=== PATIENT | male | born 1945 | race Caucasian/White ===

== ENCOUNTER → 2018-08-15 | Outpatient (REF) | payer MEDICARE, OTHER ==
[2018-08-15 14:19] LABS: HEMATOCRIT 42.2 % (42.0-52.0); HEMOGLOBIN 14.4 g/dl (13.5-17.5); MEAN CORPUSCULAR HEMOGLOBIN 34.2 pg (27.0-33.0); MEAN CORPUSCULAR HGB CONC 34.1 g/dl (32.0-36.5); MEAN CORPUSCULAR VOLUME 100.2 fl (80.0-96.0); PLATELET COUNT, AUTOMATED 437 10^3/uL (150-450); RED BLOOD COUNT 4.21 10^6/uL (4.30-6.10); RED CELL DISTRIBUTION WIDTH 12.9 % (11.5-14.5)
[2018-08-15 14:27] LABS: DRVV SCREEN 31.8 SEC
[2018-08-15 14:29] LABS: POSITIVE DIFF POS FLAG; PTT LUPUS TYPE ANTICOAG SCREEN 0.8 (0-1.2); WHITE BLOOD COUNT 22.6 10^3/uL (4.0-10.0)
[2018-08-15 14:30] LABS: ADD MANUAL DIFFER YES; DIFF SLIDE NUMBER 192; POSITIVE MORPH POS FLAG
[2018-08-15 14:34] LABS: ALBUMIN 3.9 GM/DL (3.2-5.2); ALKALINE PHOSPHATASE 109 U/L (45-117); ALT/SGPT 34 U/L (12-78); ANION GAP 9 MEQ/L (8-16); AST/SGOT 11 U/L (7-37); BILIRUBIN,TOTAL 0.5 MG/DL (0.2-1.0); BLOOD UREA NITROGEN 19 MG/DL (7-18); CALCIUM LEVEL 8.8 MG/DL (8.8-10.2); CARBON DIOXIDE LEVEL 25 MEQ/L (21-32); CHLORIDE LEVEL 99 MEQ/L (98-107); CREATININE FOR GFR 0.93 MG/DL (0.70-1.30); FOLATE 18.3 NG/ML; GLOMERULAR FILTRATION RATE > 60.0 (>42); GLUCOSE, FASTING 329 MG/DL (70-100); POTASSIUM SERUM 4.5 MEQ/L (3.5-5.1); RHEUMATOID FACTOR QUANT < 10.0 IU/ML (<15.0); SODIUM LEVEL 133 MEQ/L (136-145); THYROID STIMULATING HORMONE 0.713 uIU/ML (0.358-3.740); TOTAL 25(OH) VITAMIN D 5.8 NG/ML (30.0-100.0); TOTAL PROTEIN 6.9 GM/DL (6.4-8.2); VITAMIN B12 LEVEL 926 PG/ML
[2018-08-15 14:43] LABS: ATYPICAL LYMPH 49 % (0-5); BASOPHILS 2 % (0-4); EOSINOPHILS 3 % (0-5); LYMPHOCYTES 28 % (16-52); MONOCYTES 5 % (0-8); NEUTROPHILS 13 % (35-75); PLATELET ESTIMATE INCREASED (NORMAL)
[2018-08-15 14:48] LABS: ERYTHROCYTE SEDIMENTATION RATE 30 mm/hr (0-20)
[2018-08-15 15:43] LABS: ESTIMATED AVERAGE GLUCOSE 309 MG/DL (60-110); HEMOGLOBIN A1c 12.4 %
[2018-08-17 11:34] LABS: ALBUMIN 4.04 GM/DL (3.29-5.55); ALBUMIN % 58.5 % (55.8-66.1); ALPHA-1-GLOBULIN % 3.8 % (2.9-4.9); ALPHA-1-GLOBULINS 0.26 GM/DL (0.17-0.41); ALPHA-2-GLOBULINS 0.92 GM/DL (0.42-0.99); ALPHA-2-GLOBULINS % 13.3 % (7.1-11.8); BETA-1-GLOBULINS 0.46 GM/DL (0.28-0.60); BETA-1-GLOBULINS % 6.7 % (4.7-7.2); BETA-2-GLOBULINS 0.33 GM/DL (0.19-0.55); BETA-2-GLOBULINS % 4.8 % (3.2-6.5); GAMMA GLOBULIN % 12.9 % (11.1-18.8); GAMMA GLOBULINS 0.89 GM/DL (0.65-1.58)
[2018-08-19 00:06] LABS: ANCA-ATYPICAL <1:20 titer (Neg:<1:20); ANTI DOUBLE STRAND-DNA AB <1 IU/mL (0-9); ANTINUCLEAR ANTIBODIES DIRECT Negative (Negative); CERULOPLASMIN 29.5 mg/dL (16.0-31.0); COPPER PLASMA 101 ug/dL (72-166); CYTOPLASMIC NEUTROP AB ANCA-C <1:20 titer (Neg:<1:20); LEAD BLOOD ADULT 2 ug/dL (0-4); Lyme Disease IgG/IgM Antibodie <0.91 ISR (0.00-0.90); Lyme Disease IgM Ab Quantitati <0.80 index (0.00-0.79); MERCURY LEVEL None Detected ug/L (0.0-14.9); PERINUCLEAR AB ANCA-P <1:20 titer (Neg:<1:20); SJOGREN'S ANTI SS-A <0.2 AI (0.0-0.9); SJOGREN'S ANTI SS-B <0.2 AI (0.0-0.9); VITAMIN B1 LEVEL WHOLE BLOOD 141.8 nmol/L (66.5-200.0); VITAMIN B6,PYRIDOXAL PHOSPHATE 5.9 ug/L (5.3-46.7); VITAMIN E(ALPHA TOCOPHEROL) 14.8 mg/L (9.0-29.0); VITAMIN E(GAMMA TOCOPHEROL) 1.8 mg/L (0.5-4.9)
== END ==
LOC: M LABNEURO 09:45
DX: G62.9 Polyneuropathy, unspecified (principal); E03.9 Hypothyroidism, unspecified; E11.9 Type 2 diabetes mellitus without complications
CPT/HCPCS: 82525

== ENCOUNTER 2019-02-07 14:04 | Inpatient (IN) | payer MEDICARE, OTHER ==
[~2019-02-07] VITALS: Ht 175.3 cm; Wt 70.3 kg
[2019-02-07 20:00] VITALS: BP 153/90
[2019-02-07] MEDS ORDERED: DEXTROSE 50% 50 ML SYRINGE IV PRN (20:30)
[2019-02-07] MEDS ORDERED: GLUCOSE 4 GM CHEW TABLET PO PRN (20:30)
[2019-02-07] MEDS ORDERED: MAALOX 30 ML SUSP *UDC PO PRN (20:30)
[2019-02-07] MEDS ORDERED: MOM 30ML SUSPENSION UDC PO PRN (20:30)
[2019-02-07] MEDS ORDERED: GLUCAGON FOR INJ 1 MG VIAL (J1610) SC PRN (20:30)
[2019-02-07] MEDS: HumaLOG INSULIN (NovoLOG) PER UNIT SC SCH (21:00)
[2019-02-07] MEDS ORDERED: GABA-843 PO (21:11)
[2019-02-07] MEDS ORDERED: GLYB5TA PO (21:11)
[2019-02-07] MEDS ORDERED: ATOR40TA75 PO (21:11)
[2019-02-07] MEDS ORDERED: INVO100T PO (21:11)
[2019-02-07] MEDS ORDERED: JANU100T PO (21:11)
[2019-02-07] MEDS: LR 1,000 ML IV SCH (21:43)
[2019-02-07] MEDS: HEPARIN SOD (PORCINE) 5000 UNITS/ML VIAL SC SCH (21:44)
[2019-02-07] MEDS: MORPHINE 4 MG/ML 1ML VIAL/SYRINGE (J2270) IV PRN (21:44)
--- NOTE | 2019-02-07 22:21 | HPEPDOC ---
General Date of Admission February 07, 2019 at 19:10 Primary Care Physician: TATYANA WRAY MD Attending Physician: FRANCISCO ROMANO MD Chief Complaint The patient is a 73-year-old male admitted with a reason for visit of Subcapital Right Hip Fracture. Source: Patient, Family Exam Limitations: No limitations History of Present Illness Mr. Felix is a 73 years old man who had a mechanical fall today and sustained right hip injury. Pt states that he was pushing shopping cart when he lost the balance and fell. He was at his usual state of health. He denies any chest pain, dizziness, lightheadedness, SOB, headache or LOC. Pt was evaluated at [facility], where x-ray confirmed right hip fracture. Other work ups including basic labs were unremarkable except for chronic leucocytosis from CLL. During my visit, pt only complained of right hip pain that is indued by movement. I spoke with Jens Friedman who will see the pt tomorrow. Home Medications Scheduled Atorvastatin Calcium (Atorvastatin Calcium) 40 Mg Tablet, 40 MG PO DAILY, (Reported) Canagliflozin (Invokana) 100 Mg Tablet, 100 MG PO QPM, (Reported) Gabapentin (Gabapentin) 300 Mg Capsule, 600 MG PO QHS, (Reported) Glyburide (Glyburide) 5 Mg Tablet, 10 MG PO BID, (Reported) Sitagliptin Phosphate (Januvia) 100 Mg Tablet, 100 MG PO DAILY, (Reported) Allergies Coded Allergies: No Known Allergies (Unverified , 02/07/19) Past Medical History Medical History CLL, HTN, HLD, BPH Surgical History Hernia repair Family History Significant Family History: No pertinent family hx Social History * Smoker: Denies Alcohol: occationally Drugs: denies A-FIB/CHADSVASC A-FIB History Current/History of A-Fib/PAF?: No Review of Systems Musculoskeletal: Reports: Leg Pain Physical Examination General Exam: Positive: Cooperative Eye Exam: Positive: PERRLA ENT Exam: Positive: Atraumatic Neck Exam: Positive: Supple Chest Exam: Positive: Clear to auscultation, Normal air movement Heart Exam: Positive: Rate Normal Abdomen Exam: Positive: Normal bowel sounds Vital Signs Vital Signs Date Time Temp Pulse Resp B/P (MAP) Pulse Ox O2 Delivery O2 Flow Rate FiO2 02/07/19 21:54 16 02/07/19 21:44 18 Laboratory Tests 02/07/19 21:47: Bedside Glucose (Misc Panel) 211H Current Medications Medications (Trade) Dose Ordered Sig/Pia Route PRN Reason Start Time Stop Time Status Last Admin Dose Admin Heparin Sodium (Porcine) (Heparin) 5,000 units Q12H SC 02/07/19 21:00 02/07/19 21:44 5,000 UNITS Lactated Ringer's 1,000 ml @ 75 mls/hr [id number] IV 02/07/19 20:45 02/07/19 21:43 75 MLS/HR Morphine Sulfate (Morphine Sulfate Inj) 2 mg Q2HP PRN IV BREAKTHROUGH PAIN 02/07/19 20:30 02/07/19 21:44 2 MG Vital Signs Date Time Temp Pulse Resp B/P (MAP) Pulse Ox O2 Delivery O2 Flow Rate FiO2 02/07/19 21:54 16 Assessment/Plan 73 years old man with right hip fracture due to mechanical fall, otherwise in stable medical condition. Problems (1) Hip fracture, right Status: Acute Response to Treatment: Stable Discussed With: Nurse, Petal Cutter, Patient Problem Specific Plan: Consult Specialist (2) DM (diabetes mellitus) Status: Chronic Response to Treatment: Stable (3) CLL (chronic lymphocytic leukemia) Status: Chronic Response to Treatment: Stable (4) HTN (hypertension) Status: Chronic Response to Treatment: Stable (5) HLD (hyperlipidemia) Status: Chronic (6) BPH (benign prostatic hyperplasia) Status: Chronic Plan / VTE VTE Prophylaxis Ordered?: Yes Plan Plan Admit to inpatient. Consulted Ortho. Pain management, DVT prophylaxis, NPO, IV fluid. Holding oral diabetic meds. Initiate SSI. Pre-op EKG. Pt is in stable medical condition for surgery. No pre-op medical optimization needed at this time. Disposition Rehab vs home with PT after surgery FRANCISCO ROMANO MD February 07, 2019 22:21
[2019-02-07] MEDS: GABAPENTIN 300 MG CAP PO SCH (22:40)
[2019-02-08] MEDS: MORPHINE 4 MG/ML 1ML VIAL/SYRINGE (J2270) IV PRN ×2 (05:43→14:12)
[2019-02-08] MEDS: ACETAMINOPHEN TAB 650MG DOSE (2X325MG) PO PRN ×2 (05:50→11:30)
[2019-02-08 06:00] VITALS: BP 141/80
[2019-02-08 06:16] LABS: HEMATOCRIT 38.7 % (42.0-52.0); MEAN CORPUSCULAR HEMOGLOBIN 33.3 pg (27.0-33.0); MEAN CORPUSCULAR HGB CONC 33.6 g/dl (32.0-36.5); MEAN CORPUSCULAR VOLUME 99.2 fl (80.0-96.0); PLATELET COUNT, AUTOMATED 280 10^3/uL (150-450); WHITE BLOOD COUNT 19.4 10^3/uL (4.0-10.0)
[2019-02-08 06:32] LABS: INR 0.94; PROTHROMBIN TIME 12.7 SECONDS (12.1-14.4)
[2019-02-08 06:43] LABS: BLOOD UREA NITROGEN 22 MG/DL (7-18); CALCIUM LEVEL 8.2 MG/DL (8.8-10.2); CARBON DIOXIDE LEVEL 26 MEQ/L (21-32); CHLORIDE LEVEL 109 MEQ/L (98-107); CREATININE FOR GFR 0.72 MG/DL (0.70-1.30); GLOMERULAR FILTRATION RATE > 60.0 (>42); GLUCOSE, FASTING 182 MG/DL (70-100); POTASSIUM SERUM 4.6 MEQ/L (3.5-5.1); SODIUM LEVEL 139 MEQ/L (136-145)
[2019-02-08] MEDS: HumaLOG INSULIN (NovoLOG) PER UNIT SC SCH ×4 (08:37→21:00)
[2019-02-08] MEDS: ATORVASTATIN 20 MG TAB PO SCH (08:37)
--- NOTE | 2019-02-08 08:49 | CR ---
DATE OF CONSULTATION: 02/08/2019 CHIEF COMPLAINT: Right femoral neck fracture. HISTORY OF PRESENT ILLNESS: This is a 73-year-old man who had a mechanical fall yesterday sustained a right hip injury. 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 He was not able to ambulate after that. He did not have any chest pain, dizziness, lightheadedness, shortness of breath, headache or loss of consciousness or previous pain on the right or left side. He was transfer to [facility] where x-rays confirmed right hip fracture. He was sent to [facility] and the hospitalist called myself to consult on this patient. He has chronic leukocytosis from CLL but has never had any formal treatment such as chemoradiation to that. PAST MEDICAL HISTORY: 1. Chronic leukocytosis from chronic lymphocytic leukemia (CLL). 2. Hypertension. 3. BPH. 4. Hyperlipidemia (HLD). MEDICATIONS: - atorvastatin 40 mg by mouth once daily - canagliflozin 100 mg by mouth every evening - gabapentin 600 mg by mouth every 8 hours - glyburide 10 mg by mouth twice a day - sitagliptin phosphate (Januvia) 100 mg by mouth once daily ALLERGIES: NO KNOWN ALLERGIES. SURGICAL HISTORY: Nil. SOCIAL HISTORY: Denies smoking. Use alcohol occasionally. PHYSICAL EXAMINATION: Vital signs: Temperature 97.9. Blood pressure 141/80. Pulse rate 99. Respiratory rate 19. 97% on room air. He is alert and oriented times three. He is lying supine in the hospital bed. He follows commands appropriately. His mood and affect is pleasant and positive and communicative. He looks well for his stated age of 73. Inspection of the lower extremities reveals no obvious overlying swelling, redness, ecchymosis or deformity. Distally he is neurovascular intact in both feet with normal sensation throughout the feet and superficial on deep peroneal nerves as well as saphenous and tibial. His feet are warm and well-perfused. Strong pedal pulses. He is able to wiggle his toes, dorsiflex and plantar flex the foot. There is no pain on the left side with range of motion testing. Right side was marked. Laboratory examination reveals hemoglobin of 13.0. Coagulation factors revealed an INR 0.94 and PT 12.7. Chemistry revealed slightly high chloride 109. GFR over 60. Radiographs were reviewed from [facility]. These show a slightly displaced and angulated right subcapital femoral neck fracture. No other fractures are identified. ASSESSMENT AND PLAN: This 73-year-old man I talked about pros, cons, risks, and benefits of going ahead with right hip likely hemiarthroplasty for femoral neck fracture. Once could consider doing a total hip arthroplasty given his relative young age and good preoperative function. I also consented him for open reduction, internal fixation for general procedures during the operation. Specific risks were discussed including but not limited to infection, neurovascular injury, pain, bleeding, stiffness, instability, delayed mal or nonunion as well as anesthetic complications and . He wished to go ahead. We signed the consent form. He was okay with getting blood products and I counseled him as to the specific risks including but not limited to fever, allergic reaction as well as transmission of bacteria and viruses. We went ahead and signed the consent form for that. For now, he will be bed rest pending surgery. We will make him nothing by mouth and intravenous (IV) fluids. I have communicated this case to the current call physician, Dr. Brito, and if the case is delayed I am back on-call tomorrow and able to do the case at that point as well. From what I understand he is already cleared for surgery, so we will book him into the operating room (OR) this morning.
[2019-02-08] MEDS: HEPARIN SOD (PORCINE) 5000 UNITS/ML VIAL SC SCH (09:00)
[2019-02-08] MEDS: LR 1,000 ML IV SCH (10:05)
--- NOTE | 2019-02-08 11:58 | IPNPDOC ---
Text Note Date of Service The patient was seen on 02/08/19. NOTE Subjective: Patient is a 73 year old male with a PMHx of CLL, HTN, DLP, BPH who presented to [facility] as a direct transfer from [facility] for R hip fracture. Patient was admitted to hospital service for further evaluation and treatment and with a surgery was called for consultation. Patient was seen and examined at the bedside. No significant pain at R hip. Denies any CP, SOB or palpitations. Denies any N/V, abdominal pain, C/D or urinary discomfort. Objective: Vitals (See below) General: Lying in bed, no acute distress, comfortable, AAOx3 HEENT: NC, AT CVS: RRR, +S1S2 Lungs: Fair air entry b/l, -w/r/r Abdomen: Soft, ND, NT Extremities: - Edema, - Calf tenderness, Decrease ROM of R hip 2/2 pain Assessment and plan: Right hip pain - likely 2/2 acute fracture of right hip - 2/2 mechanical fall - Presented to the [facility] as a transfer from [facility] - Patient has received imaging at [facility]; has been reviewed by orthopedic surgery - Patient scheduled for OR procedure today - Currently remains NPO CLL - Chronic condition - Follows with outpatient Onology HTN - BP appears well controlled - Currently not on any medications DLP - c/w Atorvastatin NIDDM2 - Will hold oral medications - c/w ISS Neuropathy - c/w Gabapentin DVT prophylaxis - s/p Heparin - Anticoagulation as per orthopedic surgery Disposition: - Awaiting orthopedic intervention - PT thereafter VS,Fishbone, I+O VS, Fishbone, I+O Laboratory Tests 02/08/19 05:49 Red Blood Count 3.90 L, Mean Corpuscular Volume 99.2 H, Mean Corpuscular Hemoglobin 33.3 H, Mean Corpuscular Hemoglobin Concent 33.6, Red Cell Distribution Width 12.8, Calcium Level 8.2 L Vital Signs Date Time Temp Pulse Resp B/P (MAP) Pulse Ox O2 Delivery O2 Flow Rate FiO2 02/08/19 06:00 97.9 99 19 141/80 (100) 97 I&O- Last 24 Hours up to 6 AM 02/08/19 06:00 Intake Total 600 ml Output Total 1020 ml Balance -420 ml JOSE LITTLEJOHN MD February 08, 2019 11:58
[2019-02-08] MEDS ORDERED: EPINEPHrine INJ 1 MG/ML 1ML AMP As Ordered ONE ×2 (13:32→21:22)
[2019-02-08] MEDS ORDERED: ceFAZolin 1GM INJ (J0690 PER 500MG) As Ordered ONE ×2 (13:32→17:56)
--- NOTE | 2019-02-08 14:29 | REP ---
RIGHT FEMUR, FIVE VIEWS: HISTORY: Fracture. COMPARISON: 02/07/2019. There is a nondisplaced fracture of the right femoral neck. There is no dislocation. There is minimal narrowing of the joint space with associated sclerosis and osteophyte formation. The knee joint space is normal in appearance. IMPRESSION: Nondisplaced fracture of the right femoral neck. Electronically Signed by oKby Khan MD 02/08/2019 02:53 P
[2019-02-08] MEDS ORDERED: LIDOCAINE 2% INJ 100 MG/5 ML SDV (FOR ANES.) As Ordered ONE (16:55)
[2019-02-08] MEDS ORDERED: dexameTHASONE 4 MG/ML 1ML VIAL (J1100) As Ordered ONE (16:55)
[2019-02-08] MEDS ORDERED: ONDANSETRON 4MG/2ML VIAL (J2405) As Ordered ONE (16:55)
[2019-02-08] MEDS ORDERED: PROPOFOL 500 MG/50 ML VIAL As Ordered ONE (16:55)
[2019-02-08] MEDS ORDERED: BUPIVACAINE/DEXTROSE 0.75% 2 ML AMP As Ordered ONE (16:55)
[2019-02-08] MEDS ORDERED: MIDAZOLAM INJ 2 MG/2 ML VIAL (J2250) As Ordered ONE (16:56)
[2019-02-08] MEDS ORDERED: fentaNYL 100 MCG/2 ML INJECTION (J3010) As Ordered ONE ×2 (16:56→22:22)
--- NOTE | 2019-02-08 17:04 | ECGEPIP ---
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
--- NOTE | 2019-02-08 17:20 | IPN ---
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 Discussed this case with Dr. Brito. He has a right femoral neck fracture and was consented for a right hip hemiarthroplasty, which was scheduled for today. I was asked to proceed forward with the surgery given that the case was going later in the evening. I had a discussion with the patient, and I did examine him and reviewed the electronic medical record as well. He has no new complaints today. OBJECTIVE: Awake, alert, and oriented times three. Well-appearing male in no acute distress, resting comfortably. Focused examination of the right lower extremity, he has 2+ dorsalis pedis and posterior tibialis pulse. Sensation intact to light touch and grossly preserved motor function into the right foot. Dorsiflexion and plantar flexion are intact. X-rays of the right femur and right hip show a minimally displaced right femoral neck fracture with apex anterior deformity, slight distraction as above. ASSESSMENT: Right femoral neck fracture as above. PLAN: I discussed with the patient the options at this point include open reduction, internal fixation, total hip arthroplasty, or hip hemiarthroplasty. He is reasonably active and did not have any significant antecedent hip pain. After a long discussion, he elected to go forward with right hip hemiarthroplasty and did sign the surgical consent in my presence. He understands that, potentially in the future, he may elect to be converted over to total hip arthroplasty and he does understand the nature of the operation at this point and is satisfied with the treatment plan. Edited: [facility] 02/11/2019 1417
[2019-02-08] MEDS ORDERED: PHENYLEPHRINE INJ 10MG/ML VIAL (J2370) As Ordered ONE (18:39)
[2019-02-08] MEDS ORDERED: PROPOFOL 200 MG/20 ML VIAL As Ordered ONE ×2 (19:39→21:06)
[2019-02-08] MEDS ORDERED: KETAMINE HCL 200 MG/20 ML VIAL As Ordered ONE (20:38)
[2019-02-08] MEDS ORDERED: TRANEXAMIC ACID 100 MG/ML 10ML VIAL As Ordered ONE (21:22)
[2019-02-08] MEDS ORDERED: ceFAZolin 2 GM/D5W 50 ML IV BAG (J0690 PER 500MG) As Ordered ONE (21:40)
[2019-02-08] MEDS ORDERED: LR 1,000 ML IV SCH (22:15)
[2019-02-08] MEDS ORDERED: HYDROMORPHONE HCL 0.5 MG/ 0.5 ML SYRINGE (J1170 PER 1) IV PRN (22:15)
[2019-02-08] MEDS ORDERED: PERCOCET 5MG/325MG TAB PO PRN ×4 (22:15→23:30)
[2019-02-08] MEDS ORDERED: ONDANSETRON 4MG/2ML VIAL (J2405) IV PRN (22:15)
[2019-02-08] MEDS: fentaNYL 100 MCG/2 ML INJECTION (J3010) IV PRN ×4 (22:25→22:43)
[2019-02-08] MEDS ORDERED: NS 1,000 ML IV SCH (22:45)
[2019-02-08] MEDS ORDERED: MORPHINE 4 MG/ML 1ML VIAL/SYRINGE (J2270) IV PRN ×2 (22:45→23:30)
--- NOTE | 2019-02-08 23:01 | HPE ---
DATE OF ADMISSION: 02/08/2019 PREOPERATIVE DIAGNOSIS: Right femoral neck fracture. POSTOPERATIVE DIAGNOSIS: Right femoral neck fracture. PROCEDURE PERFORMED: Right hip cemented hemiarthroplasty. SURGEON: Jack Goodman MD ASSISTANTS: 1. Emanuel Esparza MD 2. Nirmal Brito MD ANESTHESIA: Spinal. ESTIMATED BLOOD LOSS: 500 mL. IMPLANTS: Synthes Dooly hemiarthroplasty cemented. DESCRIPTION OF PROCEDURE: The patient was identified in the preoperative holding area by name, medical record number and date of . The surgical site was marked in consultation with the patient, and he was evaluated by anesthesia. When he was ready, he was brought back to the operative suite on a gurney and transferred to the operating room (OR) table. At this point, the spinal anesthesia was induced, and the patient was placed in the lateral position, appropriately padding all bony prominences. Prior to beginning procedure, a final time-out was performed and all were in agreement. He was given IV antibiotics, Ancef 2 grams IV prior to incision. I began the procedure by making a longitudinal incision and centered on the greater trochanter, dissecting down through the skin and subcutaneous fat, identified the iliotibial band splitting that in line with its fibers. I next identified the junction of anterior one-third and posterior two-thirds of the gluteus medius, dissecting through that and elevating portions of the gluteus minimus off the proximal femur. I was able to dissect the superior capsule off the femoral neck and extend that around the greater trochanter anteriorly, raising a large flap off the anterior femur. I identified the femoral neck fracture. I made the femoral neck cut. I did identify at this time a large posterior spike attached to the posterior femoral neck and extending to the posterior calcar and lesser trochanter, and the femoral head at this time was excised along with this spike of bone. Next, I used the canal finding reamer and the broaches to prepare the femoral canal. He did have quite a tight femoral canal, and I did broach up to a size 3 after reaming appropriately. At this point, the femoral head was passed to the back table and sized and trial reduction was performed. At this point, we had significant difficulty actually achieving a full concentric reduction of the femoral head into the acetabulum. He did have very large osteophytes and hypertrophic soft tissue complicating the reduction and interposing preventing a satisfactory reduction. I did contact Dr. Brito for assistance with this procedure, and he did come in and assist. He did identify hypertrophy essentially of the transverse acetabular ligament with some associated osteophytes, and these were removed in a limited manner. Following this, we were able to achieve a good concentric reduction. He did resect some more proximal femur as well to assist with the reduction. Trialing at this time with a 51 mm head and a size 3 femoral stem showed stable reduction with a few millimeters of shuck and the hip was stable throughout range of motion, just levering slightly anteriorly in full extension and external rotation, otherwise stable. And intraoperative fluoroscopic views did confirm satisfactory concentric reduction in the AP view. At this point, the wound was copiously irrigated and closed in layers including the gluteus medius and capsule. Sterile dressings were applied, and he was brought out of anesthesia and transferred to the post anesthesia care unit. He did have palpable 2+ dorsalis pedis pulses symmetrically in the Post Anesthesia Care Unit.
[2019-02-08 23:05] VITALS: BP 133/71
[2019-02-08 23:35] VITALS: BP 111/60
[2019-02-08] MEDS: GABAPENTIN 300 MG CAP PO SCH (23:48)
[2019-02-09] VITALS (7 sets, daily range): BP systolic 95–109; BP diastolic 50–65
[2019-02-09] MEDS: PERCOCET 5MG/325MG TAB PO PRN ×2 (00:03→09:19)
[2019-02-09] MEDS ORDERED: ceFAZolin SOD 1 GM in D5W MINI-BAG PLUS 50 ML IV SCH (06:00)
[2019-02-09] MEDS: HumaLOG INSULIN (NovoLOG) PER UNIT SC SCH ×2 (07:30→12:08)
[2019-02-09] MEDS ORDERED: XARE10TA PO (08:07)
[2019-02-09] MEDS ORDERED: PERC5TAB12 PO (08:07)
[2019-02-09 08:18] LABS: HEMATOCRIT 32.1 % (42.0-52.0); MEAN CORPUSCULAR HEMOGLOBIN 33.8 pg (27.0-33.0); MEAN CORPUSCULAR HGB CONC 32.7 g/dl (32.0-36.5); MEAN CORPUSCULAR VOLUME 103.2 fl (80.0-96.0); PLATELET COUNT, AUTOMATED 249 10^3/uL (150-450); RED BLOOD COUNT 3.11 10^6/uL (4.30-6.10)
[2019-02-09 08:22] LABS: HEMOGLOBIN 10.5 g/dl (13.5-17.5)
[2019-02-09 08:23] LABS: WHITE BLOOD COUNT 16.2 10^3/uL (4.0-10.0)
[2019-02-09 08:41] LABS: BLOOD UREA NITROGEN 28 MG/DL (7-18); CALCIUM LEVEL 7.8 MG/DL (8.8-10.2); CARBON DIOXIDE LEVEL 15 MEQ/L (21-32); CHLORIDE LEVEL 108 MEQ/L (98-107); CREATININE FOR GFR 0.79 MG/DL (0.70-1.30); GLOMERULAR FILTRATION RATE > 60.0 (>42); GLUCOSE, FASTING 149 MG/DL (70-100); POTASSIUM SERUM 4.4 MEQ/L (3.5-5.1); SODIUM LEVEL 137 MEQ/L (136-145)
[2019-02-09] MEDS: HEPARIN SOD (PORCINE) 5000 UNITS/ML VIAL SC SCH (09:00)
[2019-02-09] MEDS ORDERED: MIRALAX *UNIT DOSE* 17GM PACKET PO SCH (09:00)
[2019-02-09] MEDS ORDERED: SENOKOT S TAB PO SCH (09:00)
[2019-02-09 09:12] LABS: ATYPICAL LYMPH 1 % (0-5); LYMPHOCYTES 32 % (16-52); MONOCYTES 2 % (0-8); NEUTROPHILS 64 % (35-75)
[2019-02-09 09:15] LABS: POLYCHROMASIA 1+
[2019-02-09 09:16] LABS: PLATELET ESTIMATE NORMAL (NORMAL)
[2019-02-09] MEDS: ATORVASTATIN 20 MG TAB PO SCH (09:18)
--- NOTE | 2019-02-09 09:19 | REP ---
OR RIGHT HIP, THREE VIEWS: HISTORY: Fracture. Three portable radiographs were obtained. The patient is status post right total hip replacement. There is no dislocation. Subcutaneous air is present in the overlying soft tissue. IMPRESSION: The patient is status post right total hip replacement. There is anatomic alignment. Electronically Signed by Koby Khan MD 02/09/2019 09:24 A
--- NOTE | 2019-02-09 09:21 | REP ---
PORTABLE AP LATERAL RIGHT HIP, TWO VIEWS: HISTORY: Fracture. COMPARISON: 7:47 p.m. 02/08/2019. The patient is status post right total hip replacement. There is no acute fracture or dislocation. Subcutaneous air and surgical unique are present in the overlying soft tissue. IMPRESSION: The patient is status post right total hip replacement. There is anatomic alignment. Electronically Signed by Koby Khan MD 02/09/2019 09:24 A
[2019-02-09] MEDS ORDERED: RIVAROXABAN 10 MG TAB (XARELTO) PO SCH (18:00)
--- NOTE | 2019-02-09 18:50 | DS.PDOC ---
Discharge Summary General Date of Admission February 07, 2019 at 19:10 Date of Discharge 02/09/19 Discharge Summary PROCEDURES PERFORMED DURING STAY: Right hip cemented hemiarthroplasty. DISCHARGE DIAGNOSES: Right hip fracture s/p hemiarthroplasty Diabetes CLL Hypertension Diabetic Neuropathy. COMPLICATIONS/CHIEF COMPLAINT: Subcapital Right Hip Fracture. HISTORY OF PRESENT ILLNESS: Please see history and physical HOSPITAL COURSE: Patient is a 73 year old male with a PMHx of CLL, HTN, DLP, BPH, diabetes, who presented to [facility] as a direct transfer from [facility] for Right hip fracture. Patient was admitted to hospital service for further evaluation and treatment. Orthopedic surgery was called for consultation. Right hip fracture- 2/2 mechanical fall - Presented to the [facility] as a transfer from [facility] - s/p hemiarthroplasty on 02/08/19 CLL - Chronic condition, has chronic leucocytosis. - Follows with outpatient Oncology HTN - BP appears well controlled - Currently not on any medications DLP - c/w Atorvastatin NIDDM2 - patient FS was over 300 this afternoon with slight drop in bicarb and increase in anion gap - will give levemir and lispro to prevent him from going into DKA. will encourage oral intake. - will start glipizide and other oral medications - c/w ISS Neuropathy - c/w Gabapentin DVT prophylaxis - Anticoagulation as per orthopedic surgery DISCHARGE MEDICATIONS: Please see below. ALLERGIES: Please see below. PHYSICAL EXAMINATION ON DISCHARGE: VITAL SIGNS: Please see below. General: Lying in bed, no acute distress, comfortable, AAOx3 HEENT: NC, AT CVS: RRR, +S1S2, no rub, murmur or gallop. Lungs: Fair air entry b/l, -w/r/r Abdomen: Soft, ND, NT Extremities: - Edema, - Calf tenderness, Decrease ROM of R hip 2/2 pain LABORATORY DATA: Please see below. ACTIVITY: [As tolerated]. DIET: Carb consistent DISPOSITION: 70 Xfer Other. DISCHARGE INSTRUCTIONS: 1. Follow up PMD in 1 month 2. Follow up with Ortho as directed. ITEMS TO FOLLOWUP ON ON OUTPATIENT: 1. Basic metabolic panel DISCHARGE CONDITION: [Stable]. TIME SPENT ON DISCHARGE: Greater than 30 minutes. Vital Signs/I&Os Vital Signs Date Time Temp Pulse Resp B/P (MAP) Pulse Ox O2 Delivery O2 Flow Rate FiO2 02/09/19 14:00 98.9 85 20 100/50 (67) 96 I&O- Last 24 Hours up to 6 AM 02/09/19 06:00 Intake Total 1950 ml Output Total 1950 ml Balance 0 ml Laboratory Data Labs 24H Laboratory Tests 2 02/08/19 23:06: Bedside Glucose (Misc Panel) 156H 02/09/19 06:56: Bedside Glucose (Misc Panel) 132H 02/09/19 07:46: White Blood Count 16.2H, Red Blood Count 3.11L, Hemoglobin 10.5#L, Hematocrit 32.1L, Mean Corpuscular Volume 103.2H, Mean Corpuscular Hemoglobin 33.8H, Mean Corpuscular Hemoglobin Concent 32.7, Red Cell Distribution Width 13.2, Platelet Count 249, Lymphocytes # (Auto) , Nucleated Red Blood Cells % (auto) 0.0, Neutrophils 64, Band Neutrophils 1, Lymphocytes (Manual) 32, Monocytes (Manual) 2, Atypical Lymphocytes 1, Platelet Estimate NORMAL, Polychromasia 1+, Macrocytosis 2+, Anion Gap 14, Glomerular Filtration Rate > 60.0, Blood Urea Nitrogen 28H, Creatinine 0.79, Sodium Level 137, Potassium Level 4.4, Chloride Level 108H, Carbon Dioxide Level 15L, Calcium Level 7.8L 02/09/19 11:51: Bedside Glucose (Misc Panel) 394H CBC/BMP Laboratory Tests 02/09/19 07:46 Red Blood Count 3.11 L, Mean Corpuscular Volume 103.2 H, Mean Corpuscular Hem oglobin 33.8 H, Mean Corpuscular Hemoglobin Concent 32.7, Red Cell Distribution Width 13.2, Lymphocytes # (Auto) , Calcium Level 7.8 L FSBS Laboratory Tests Test 02/08/19 23:06 02/09/19 06:56 02/09/19 11:51 Range/Units Bedside Glucose (Misc Panel) 156 132 394 83-110 MG/DL Discharge Medications Scheduled Atorvastatin Calcium (Atorvastatin Calcium) 40 Mg Tablet, 40 MG PO DAILY, (Reported) Canagliflozin (Invokana) 100 Mg Tablet, 100 MG PO QPM, (Reported) Gabapentin (Gabapentin) 300 Mg Capsule, 600 MG PO QHS, (Reported) Glyburide (Glyburide) 5 Mg Tablet, 10 MG PO BID, (Reported) Rivaroxaban (Xarelto) 10 Mg Tablet, 10 MG PO DAILY Sitagliptin Phosphate (Januvia) 100 Mg Tablet, 100 MG PO DAILY, (Reported) Scheduled PRN Oxycodone HCl/Acetaminophen (Percocet 5-325 mg Tablet) 1 Each Tablet, 1 TAB PO Q4H PRN for PAIN Allergies Coded Allergies: No Known Allergies (Unverified , 02/07/19) FREDDY AZAR MD February 09, 2019 18:50
== END 2019-02-09 14:20 | disposition other institution (70) | DRG 470 ==
LOC: M MS5PR 19:10
PROVIDERS: ADMIT Internal Medicine; ATTEND Internal Medicine
PROC: 0SRR0J9 Replacement of Right Hip Joint, Femoral Surface with Synthetic Substitute, Cemented, Open Approach (ICD-10-PCS; principal; 2019-02-08 17:00)
DX: S72.011A Unspecified intracapsular fracture of right femur, initial encounter for closed fracture (principal); C91.90 Lymphoid leukemia, unspecified not having achieved remission; W18.09XA Striking against other object with subsequent fall, initial encounter; Y92.89 Other specified places as the place of occurrence of the external cause; Y99.2 Volunteer activity; I10 Essential (primary) hypertension; E78.5 Hyperlipidemia, unspecified; N40.0 Benign prostatic hyperplasia without lower urinary tract symptoms; E11.40 Type 2 diabetes mellitus with diabetic neuropathy, unspecified; Z79.84 Long term (current) use of oral hypoglycemic drugs; Z79.899 Other long term (current) drug therapy

== ENCOUNTER 2019-02-09 12:28 | Inpatient (IN) | payer MEDICARE, OTHER ==
[~2019-02-09] VITALS: Ht 175.3 cm; Wt 65.5 kg
[~2019-02-09 12:28] MED LIST: ATOR40TA75 PO; GABA-843 PO; GLYB5TA PO; INVO100T PO; JANU100T PO; PERC5TAB12 PO; XARE10TA PO
[2019-02-09 14:20] VITALS: BP 132/60
[2019-02-09] MEDS ORDERED: ACETAMINOPHEN TAB 650MG DOSE (2X325MG) PO PRN (15:15)
[2019-02-09] MEDS ORDERED: ONDANSETRON 4 MG TAB (S0181) PO PRN (15:15)
[2019-02-09] MEDS ORDERED: BISACODYL 10 MG SUPP PR PRN (15:15)
[2019-02-09] MEDS ORDERED: DEXTROSE 50% 50 ML SYRINGE IV PRN (15:15)
[2019-02-09] MEDS ORDERED: GLUCAGON FOR INJ 1 MG VIAL (J1610) SC PRN (15:15)
[2019-02-09] MEDS ORDERED: oxyCODONE 5MG TAB PO PRN ×2 (15:15)
[2019-02-09] MEDS ORDERED: GLUCOSE 4 GM CHEW TABLET PO PRN (15:15)
[2019-02-09] MEDS ORDERED: oxyCODONE 5MG TAB PO ONE (15:30)
--- NOTE | 2019-02-09 15:50 | HPEPDOC ---
Welt Stitcher Note DATE OF ADMISSION: February 09, 2019 at 14:20 SOURCE OF ADMISSION INFORMATION: patient and [facility] records CHIEF COMPLAINT: right hip fracture s/p total hip arthroplasty HISTORY OF PRESENT ILLNESS: 73M pmh DM, CLL, HTN, BPH who fell while doing heavy lifting onto his right side and presented to [facility] where imaging showed a right hip fracture. He was transferred to [facility] ED on 02/08/19 complaining of right leg pain and weakness. Imaging revealed, Nondisplaced fracture of the right femoral neck. Orthopedics was consulted and determined he was an appropriate candidate for a total hip replacement given his young age and high level of physical function prior to the fall. EKG showed, Sinus bradycardia with sinus arrhythmia and he was cleared by medicine for procedure. He underwent a total hip replacement without complications, had persistent leukocytosis due to his CLL and elevated glucose levels. He was evaluated by therapy, found to be well below his prior level of function with impairments in gait and ADLs and deemed medically appropriate for discharge to ARU on 02/09/19. Upon arrival he endorses a few years of unsteadiness on his feet due to his neuropathy, but denies any back pain or foot drop.He admits to be non-adherent to a diabetic diet and would like to try to adjust his eating habits while on ARU. REVIEW OF SYSTEMS: The following is a completed review of systems and has been reviewed. Review of systems otherwise unremarkable. PAIN: Patient self reports no right hip pain EYES: Negative for recent vision changes EARS, NOSE, & THROAT: denies throat pain, does endorse hx of pain with swallowing due to GERD CARDIOVASCULAR: denies chest pain or palpitations PULMONARY: Negative. Denies shortness of breath GASTROINTESTINAL: Negative for diarrhea or constipation GENITOURINARY: +burning with urination MUSCULOSKELETAL: bilateral LE weakness NEUROLOGICAL: +peripheral neuropathy HEMATOLOGICAL:+ CLL SKIN: right hip incision PSYCHIATRIC: Unremarkable All other review of systems found to be negative. PAST MEDICAL HISTORY: as per HPI PAST SURGICAL HISTORY: hernia repair ALLERGIES: Please see below. MEDICATIONS: Please see below. SOCIAL HISTORY: lives with , currently working, occasional ETOH, no smoking, or illicit drugs DIET:COnsistent carb PHYSICAL EXAMINATION: VITAL SIGNS: Please see below. GENERAL: Pleasant and cooperative. No acute distress. HEENT: PERRL. Extraocular movements intact. Clear conjunctiva CARDIOVASCULAR: Regular rate and rhythm. No murmurs, rubs, or gallops LUNGS: Clear to auscultation bilaterally. No wheezes. No rhonchi ABDOMEN: Soft, nontender, nondistended. Positive bowel sounds. Normal active bowel sounds NEUROLOGICAL: Alert and oriented times three. Cranial nerves II through XII grossly intact. Sensation diminished to light touch in LE in stocking pattern, proprioception intact EXTREMITIES:5\5 strength bilateral upper extremities. 5\5 strength right ankle DF and EHL (exam limited due to recent surgery).5/5 strength in left lower e xtremity. SKIN: right hip incision without induration c/d/i IMAGING: Imaging documentation personally reviewed by record FUNCTIONAL STATUS: Premorbid: Independent with all activities of daily life as well as mobility On Admission: Min assist for functional transfers, able to ambulate 8 feet with contact guard assist with RW GOALS: Mod-I with RW or cane for ambulation, stairs, ASSESSMENT:73-year-old M with past medical history of CLL who presents status post fall with hip fracture s/p THR PLAN: 1. rehab: PT/OT, assess for DME needs 2. ortho s/p fall with right femure fracture, per ost-op radiology records s/p total hip arthroplasty- hip precautions- ortho consulted 3. Neuro: +diabetic neuropathy c/u gabapentin 4. Cardiac: pmh HTN c/u home meds- medicine consulted 5. Endo: poorly controlled DM, c/u ISS, glyburide and long active levemir at night- adjust prn, consistent carb diet 6. GI: pmh GERD, c/u protonix 7. DVT ppx: xarelto, teds 8. : pmh BPH, monitor pVRs, f/u admission UA and Ucx 9, Heme: pmh CLL with chronic leukocytosis- monitor 10. Dispo: TBD POST ADMISSION PHYSICIAN EVALUATION: Medical and functional status: Description of medical status, medical assessment: As above. Rehabilitation diagnosis and current and prior cold morbid medical conditions as above. Risk of complications and plans to mitigate them as above. Description of functional status current status is as above. Prior status as above. Status compared to preadmission: There are no clinically significant differences between the patient's current status and the information described on the prea dmission screening document. Treatment plan anticipated: Treatment plan is as described above. Required disciplines including physical therapy, occupational therapy, others as noted above Intensity of services: 3 hours a day, 6 days a week. Special considerations: There are no specific special or safety considerations that would likely preclude immediate implementation of an intensive rehabilitation program or subsequently influence the plan of care ATTESTATION: Considering all the information above, it is my best judgment that this patient requires intensive rehabilitation therapy as described above and an inpatient hospital environment due to the complexity of nursing, medical, and rehabilitation needs required by the patient. Furthermore, this patient can reasonably be expected to participate in an benefit from an inpatient rehabilitation stay with an interdisciplinary team approach to the delivery of rehabilitation care under the direction and supervision of rehabilitation physician PROGNOSIS: Excellent ESTIMATED LENGTH OF STAY:14-16 days. PROJECTED DISCHARGE DESTINATION: Home with family support and any durable medical equipment required to increase functional safety and mobility TIME SPENT COUNSELING AND COORDINATING INITIAL CARE: Greater than70 minutes. Vital Signs Vital Signs Date Time Temp Pulse Resp B/P (MAP) Pulse Ox O2 Delivery O2 Flow Rate FiO2 02/09/19 14:20 98.6 97 17 132/60 (84) 99 Home Medications Scheduled Atorvastatin Calcium (Atorvastatin Calcium) 40 Mg Tablet, 40 MG PO DAILY, (Reported) Canagliflozin (Invokana) 100 Mg Tablet, 100 MG PO QPM, (Reported) Gabapentin (Gabapentin) 300 Mg Capsule, 600 MG PO QHS, (Reported) Glyburide (Glyburide) 5 Mg Tablet, 10 MG PO BID, (Reported) Rivaroxaban (Xarelto) 10 Mg Tablet, 10 MG PO DAILY Sitagliptin Phosphate (Januvia) 100 Mg Tablet, 100 MG PO DAILY, (Reported) Scheduled PRN Oxycodone HCl/Acetaminophen (Percocet 5-325 mg Tablet) 1 Each Tablet, 1 TAB PO Q4H PRN for PAIN Allergies Coded Allergies: No Known Allergies (Unverified , 02/07/19) A-FIB/CHADSVASC A-FIB History Current/History of A-Fib/PAF?: No GALILEO DUFF MD February 09, 2019 15:50
[2019-02-09] MEDS: ACETAMINOPHEN 500 MG TAB PO SCH ×2 (16:12→20:04)
[2019-02-09] MEDS: PANTOPRAZOLE 40MG TAB (PROTONIX) PO SCH (16:12)
[2019-02-09] MEDS: glyBURIDE 2.5 MG TAB PO SCH (17:56)
[2019-02-09] MEDS: GABAPENTIN 300 MG CAP PO SCH ×2 (17:56→20:04)
[2019-02-09] MEDS: RIVAROXABAN 10 MG TAB (XARELTO) PO SCH (17:56)
[2019-02-09] MEDS: HumaLOG INSULIN (NovoLOG) PER UNIT SC SCH ×2 (17:57→21:30)
[2019-02-09 19:45] LABS: APPEARANCE, URINE CLEAR (CLEAR); BACTERIA, URINE AUTO NEGATIVE (NEGATIVE); BILIRUBIN, URINE AUTO NEGATIVE (NEGATIVE); BLOOD, URINE BLOOD 2+ (NEGATIVE); COLOR, URINE YELLOW (YELLOW); GLUCOSE, URINE (UA) AUTO 3+ mg/dL (NEGATIVE); KETONE, URINE AUTO 1+ mg/dL (NEGATIVE); LEUKOCYTE ESTERASE, URINE AUTO NEGATIVE (NEGATIVE); MUCUS, URINE SMALL (NEGATIVE); NITRITE, URINE AUTO NEGATIVE (NEGATIVE); PROTEIN, URINE AUTO NEGATIVE (NEGATIVE); RBC, URINE AUTO 2 /HPF (0-3); SPECIFIC GRAVITY URINE AUTO 1.027 (1.002-1.035); SQUAMOUS EPITHELIAL CELL UR AU 0 /HPF (0-6); UROBILINOGEN, URINE AUTO 0.2 mg/dL (0.0-2.0); WBC, URINE AUTO 2 /HPF (0-3)
[2019-02-09 20:00] VITALS: BP 107/56
[2019-02-09] MEDS: SENOKOT S TAB PO SCH (20:03)
[2019-02-09] MEDS: LEVEMIR (INSULIN DETEMIR) 1 UNITS/0.01ML SC SCH (21:31)
[2019-02-10] VITALS (7 sets, daily range): BP systolic 77–124; BP diastolic 50–62
[2019-02-10 07:10] LABS: HEMATOCRIT 32.2 % (42.0-52.0); HEMOGLOBIN 10.8 g/dl (13.5-17.5); MEAN CORPUSCULAR HEMOGLOBIN 34.2 pg (27.0-33.0); MEAN CORPUSCULAR HGB CONC 33.5 g/dl (32.0-36.5); MEAN CORPUSCULAR VOLUME 101.9 fl (80.0-96.0); PLATELET COUNT, AUTOMATED 293 10^3/uL (150-450); RED BLOOD COUNT 3.16 10^6/uL (4.30-6.10)
[2019-02-10 07:24] LABS: ALBUMIN 2.7 GM/DL (3.2-5.2); ALT/SGPT 24 U/L (12-78); BILIRUBIN,TOTAL 0.5 MG/DL (0.2-1.0); BLOOD UREA NITROGEN 33 MG/DL (7-18); CARBON DIOXIDE LEVEL 25 MEQ/L (21-32); CHLORIDE LEVEL 109 MEQ/L (98-107); CREATININE FOR GFR 0.92 MG/DL (0.70-1.30); GLOMERULAR FILTRATION RATE > 60.0 (>42); GLUCOSE, FASTING 179 MG/DL (70-100); SODIUM LEVEL 140 MEQ/L (136-145); TOTAL PROTEIN 5.4 GM/DL (6.4-8.2)
[2019-02-10] MEDS: HumaLOG INSULIN (NovoLOG) PER UNIT SC SCH ×4 (08:08→20:42)
[2019-02-10] MEDS: SENOKOT S TAB PO SCH ×2 (08:08→20:41)
[2019-02-10] MEDS: glyBURIDE 2.5 MG TAB PO SCH ×2 (08:09→17:43)
[2019-02-10] MEDS: PANTOPRAZOLE 40MG TAB (PROTONIX) PO SCH (08:10)
[2019-02-10] MEDS: GABAPENTIN 300 MG CAP PO SCH ×3 (08:10→20:41)
[2019-02-10] MEDS: ATORVASTATIN 20 MG TAB PO SCH (08:10)
[2019-02-10 08:11] LABS: ANISOCYTOSIS 1+; ATYPICAL LYMPH 5 % (0-5); LYMPHOCYTES 62 % (16-52); MONOCYTES 6 % (0-8); NEUTROPHILS 27 % (35-75); PLATELET ESTIMATE NORMAL (NORMAL)
[2019-02-10] MEDS: ACETAMINOPHEN 500 MG TAB PO SCH ×3 (08:11→20:40)
[2019-02-10] MEDS: TAMSULOSIN 0.4 MG CAP PO SCH (10:18)
--- NOTE | 2019-02-10 12:14 | IPNPDOC ---
Subjective Date Seen The patient was seen on 02/10/19. Subjective Chief Complaint/HPI Patient is a 73-year-old male, past medical history significant for diabetes mellitus, CLL, HTN, BPH who fell while doing heavy lifting onto his right side and presented to [facility] where imaging showed a right hip fracture. He underwent a total hip replacement without complication Events since last encounter Has had urinary retention greater than 800 mL for which patient had to be straight cath. Wondering when Flomax will have effect. We have discussed if he is not able to void voluntarily within 24-48 hours, we'll need to consult urology for evaluation. Otherwise, denies chills, fever, chest pain, shortness of breath Objective Physical Examination Other physical findings General: NAD. Skin: Warm, dry, intact. Cardiovascular: Regular rate and rhythm, no MRG, no jugular venous distention, no edema. Respiratory:CTAB, no accessory muscle use noted. Abdomen: Bowel sounds +, no tenderness, no distention Musculoskeletal: Right hip dressing dry and intact No joint deformities, Neurologic: CN 2-12 grossly intact, alert and oriented 3 Psychiatric: Appropriate mood and affect, no anxiety or agitation. A-FIB/CHADSVASC A-FIB History Current/History of A-Fib/PAF?: No Current Oral Anticoagulant The: Yes Treatment Treatment ordered: Rivaroxaban Assessment /Plan Assessment Right Hip Fracture -S/P Right hip hemiarthroplasty -Continued in the rehabilitation unit for mobilization and strengthening Urinary retention with underlying BPH -S/P straight catheterization with drainage 800 mL urine -Started on Flomax Type 2 diabetes mellitus -Continue fingerstick checks and monitoring prior to meals and bedtime -Diabetic diet -Coverage with insulin per sliding scale protocol CLL with leukocytosis -No sign of acute infection. -Continue to monitor Plan/VTE VTE Prophylaxis Ordered?: Yes VS, I&O, 24H, Fishbone Vital Signs/I&O Vital Signs Date Time Temp Pulse Resp B/P (MAP) Pulse Ox O2 Delivery O2 Flow Rate FiO2 02/10/19 07:40 18 02/10/19 06:00 98.2 82 110/60 (77) 98 I&O- Last 24 Hours up to 6 AM 02/10/19 06:00 Intake Total 580 ml Output Total 1475 ml Balance -895 ml Laboratory Data 24H LABS Laboratory Tests 2 02/09/19 15:03: Urine Appearance CLEAR, Urine Color YELLOW, Urine pH 5.0, Urine Specific [place] 1.027, Urine Protein NEGATIVE, Urine Glucose (UA) 3+H, Urine Ketones 1+H, Urine Urobilinogen 0.2, Urine Bilirubin NEGATIVE, Urine Leukocyte Esterase NEGATIVE, Urine Blood 2+H, Urine Nitrite NEGATIVE, Urine WBC (Auto) 2, Urine RBC (Auto) 2, Urine Hyaline Casts (Auto) 0, Urine Bacteria (Auto) NEGATIVE, Urine Squamous Epithelial Cells 0, Urine Mucus (Auto) SMALL, Urine Sperm (Auto) 02/09/19 16:46: Bedside Glucose (Misc Panel) 292H 02/09/19 21:02: Bedside Glucose (Misc Panel) 331H 02/10/19 06:43: White Blood Count 21.0H, Red Blood Count 3.16L, Hemoglobin 10.8L, Hematocrit 32.2L, Mean Corpuscular Volume 101.9H, Mean Corpuscular Hemoglobin 34.2H, Mean Corpuscular Hemoglobin Concent 33.5, Red Cell Distribution Width 13.2, Platelet Count 293, Lymphocytes # (Auto) , Nucleated Red Blood Cells % (auto) 0.0, Neutrophils 27L, Lymphocytes (Manual) 62H, Monocytes (Manual) 6, Atypical Lymphocytes 5, Platelet Estimate NORMAL, Anisocytosis 1+, Macrocytosis 1+, Anion Gap 6L, Glomerular Filtration Rate > 60.0, Blood Urea Nitrogen 33H, Creatinine 0.92, Sodium Level 140, Potassium Level 4.0, Chloride Level 109H, Carbon Dioxide Level 25, Calcium Level 8.0L, Aspartate Amino Transf (AST/SGOT) 20, Alanine Aminotransferase (ALT/SGPT) 24, Alkaline Phosphatase 112, Total Bilirubin 0.5, Total Protein 5.4L, Albumin 2.7L, Albumin/Globulin Ratio 1.00 CBC/BMP Laboratory Tests 02/10/19 06:43 Red Blood Count 3.16 L, Mean Corpuscular Volume 101.9 H, Mean Corpuscular Hemoglobin 34.2 H, Mean Corpuscular Hemoglobin Concent 33.5, Red Cell Distribution Width 13.2, Lymphocytes # (Auto) , Calcium Level 8.0 L, Aspartate Amino Transf (AST/SGOT) 20, Alanine Aminotransferase (ALT/SGPT) 24, Alkaline Phosphatase 112, Total Bilirubin 0.5, Total Protein 5.4 L, Albumin 2.7 L Microbiology Microbiology 02/09/19 Urine Culture, Received Pending SIL MIMS RENOVATOR MACHINE OPERATOR February 10, 2019 12:14
[2019-02-10] MEDS: RIVAROXABAN 10 MG TAB (XARELTO) PO SCH (17:42)
[2019-02-10] MEDS: LEVEMIR (INSULIN DETEMIR) 1 UNITS/0.01ML SC SCH (20:42)
[2019-02-11] VITALS: BP_SYST 100; BP_SYST 89; BP_DIAS 54; BP_DIAS 60
[2019-02-11 04:00] VITALS: BP 108/58
[2019-02-11 06:37] LABS: HEMATOCRIT 25.4 % (42.0-52.0); MEAN CORPUSCULAR HEMOGLOBIN 33.7 pg (27.0-33.0); MEAN CORPUSCULAR HGB CONC 33.9 g/dl (32.0-36.5); MEAN CORPUSCULAR VOLUME 99.6 fl (80.0-96.0); PLATELET COUNT, AUTOMATED 222 10^3/uL (150-450); RED BLOOD COUNT 2.55 10^6/uL (4.30-6.10); WHITE BLOOD COUNT 14.8 10^3/uL (4.0-10.0)
[2019-02-11 06:51] LABS: HEMOGLOBIN 8.6 g/dl (13.5-17.5)
[2019-02-11 07:12] LABS: ALBUMIN 2.1 GM/DL (3.2-5.2); ALT/SGPT 17 U/L (12-78); BILIRUBIN,TOTAL 0.5 MG/DL (0.2-1.0); BLOOD UREA NITROGEN 26 MG/DL (7-18); CALCIUM LEVEL 7.2 MG/DL (8.8-10.2); CARBON DIOXIDE LEVEL 26 MEQ/L (21-32); CHLORIDE LEVEL 109 MEQ/L (98-107); CREATININE FOR GFR 0.69 MG/DL (0.70-1.30); GLOMERULAR FILTRATION RATE > 60.0 (>42); GLUCOSE, FASTING 72 MG/DL (70-100); POTASSIUM SERUM 3.6 MEQ/L (3.5-5.1); SODIUM LEVEL 140 MEQ/L (136-145); TOTAL PROTEIN 4.6 GM/DL (6.4-8.2)
[2019-02-11] MEDS: HumaLOG INSULIN (NovoLOG) PER UNIT SC SCH ×4 (07:30→21:11)
[2019-02-11] MEDS: SENOKOT S TAB PO SCH ×2 (07:50→21:00)
[2019-02-11] MEDS: glyBURIDE 2.5 MG TAB PO SCH ×2 (07:50→17:00)
[2019-02-11] MEDS: PANTOPRAZOLE 40MG TAB (PROTONIX) PO SCH (07:50)
[2019-02-11] MEDS: GABAPENTIN 300 MG CAP PO SCH ×3 (07:50→21:10)
[2019-02-11] MEDS: TAMSULOSIN 0.4 MG CAP PO SCH (07:50)
[2019-02-11] MEDS: ATORVASTATIN 20 MG TAB PO SCH (07:51)
[2019-02-11] MEDS: ACETAMINOPHEN 500 MG TAB PO SCH ×3 (07:51→21:10)
[2019-02-11 08:00] VITALS: BP 125/64
[2019-02-11 11:03] LABS: HEMATOCRIT 25.9 % (42.0-52.0); HEMOGLOBIN 8.7 g/dl (13.5-17.5)
[2019-02-11 11:29] LABS: HEMOGLOBIN A1c 11.9 %
[2019-02-11 12:00] VITALS: BP 105/57
--- NOTE | 2019-02-11 12:00 | IPNPDOC ---
Subjective Date Seen The patient was seen on 02/11/19. Subjective Chief Complaint/HPI Patient is a 73-year-old male, past medical history significant for diabetes mellitus, CLL, HTN, BPH who fell while doing heavy lifting onto his right side and presented to [facility] where imaging showed a right hip fracture. He underwent a total hip replacement without complication Events since last encounter Complaints of worsening pain to right hip today. Complains also of blurry vision and reports hypoglycemic episode this a.m. with sugar in the 70s. This constipation will have to leave Galindo catheter in per recommendations of urology due to obstructive uropathy post surgery. Patient states he would prefer a void ing trial in 2 days rather than be discharged home with the Galindo catheter. Objective Physical Examination Other physical findings General: NAD. Skin: Warm, dry, allyvn to sacral area. Cardiovascular: Regular rate and rhythm, no MRG, no jugular venous distention, no edema. Respiratory:CTAB, no accessory muscle use noted. Abdomen: Bowel sounds +, no tenderness, no distention : Galindo catheter in place, draining yellow urine Musculoskeletal: Right hip dressing dry and intact No joint deformities, Neurologic: CN 2-12 grossly intact, alert and oriented 3 Psychiatric: Appropriate mood and affect, no anxiety or agitation. A-FIB/CHADSVASC A-FIB History Current/History of A-Fib/PAF?: No Current Oral Anticoagulant The: Yes Treatment Treatment ordered: Rivaroxaban Assessment /Plan Assessment Right Hip Fracture -S/P Right hip hemiarthroplasty -Continued in the rehabilitation unit for mobilization and strengthening Urinary retention with underlying BPH -Discussed with urology, who recommended placing indwelling Galindo catheter for patient to follow-up post discharge for urologic studies. -Continue Flomax -Patient would prefer a voiding trial in 2 days Type 2 diabetes mellitus -Hypoglycemic episodes in the morning with blood sugar in the 70s -Hemoglobin A1c 11.9 -reduce dose glyburide to 5mg BID -Continue levemir 10 units QHS -Continue fingerstick checks and monitoring prior to meals and bedtime -continue Diabetic diet Posthemorrhagic anemia -Hemoglobin dropped to 8.6 today -Repeat hemoglobin levels -Transfuse if less than 7 or hemodynamic compromise Orthostatic blood pressure -Reported blood pressure dropped to the 70s on standing yesterday -Improved today -Continue fall precautions and monitoring CLL with leukocytosis -No sign of acute infection. -Continue to monitor Plan/VTE VTE Prophylaxis Ordered?: Yes VS, I&O, 24H, Fishbone Vital Signs/I&O Vital Signs Date Time Temp Pulse Resp B/P (MAP) Pulse Ox O2 Delivery O2 Flow Rate FiO2 02/11/19 08:00 98.3 89 18 125/64 (84) 99 I&O- Last 24 Hours up to 6 AM 02/11/19 06:00 Intake Total 960 ml Output Total 3450 ml Balance -2490 ml Laboratory Data 24H LABS Laboratory Tests 2 02/10/19 12:15: Bedside Glucose (Misc Panel) 179H 02/10/19 17:13: Bedside Glucose (Misc Panel) 367H 02/10/19 20:01: Bedside Glucose (Misc Panel) 253H 02/11/19 06:16: Nucleated Red Blood Cells % (auto) 0.0, Anion Gap 5L, Glomerular Filtration Rate > 60.0, Blood Urea Nitrogen 26H, Creatinine 0.69L, Sodium Level 140, Potassium Level 3.6, Chloride Level 109H, Carbon Dioxide Level 26, Calcium Level 7.2L, Aspartate Amino Transf (AST/SGOT) 13, Alanine Aminotransferase (ALT/SGPT) 17, Alkaline Phosphatase 93, Total Bilirubin 0.5, Total Protein 4.6L, Albumin 2.1#L, Magnesium Level 2.0, Albumin/Globulin Ratio 0.84L 02/11/19 10:40: Estimated Mean Plasma Glucose 295H, Hemoglobin A1c 11.9 02/11/19 11:32: Bedside Glucose (Misc Panel) 276H CBC/BMP Laboratory Tests 02/11/19 06:16 Red Blood Count 2.55 L, Mean Corpuscular Volume 99.6 H, Mean Corpuscular Hemoglobin 33.7 H, Mean Corpuscular Hemoglobin Concent 33.9, Red Cell Dis tribution Width 13.1, Calcium Level 7.2 L, Aspartate Amino Transf (AST/SGOT) 13, Alanine Aminotransferase (ALT/SGPT) 17, Alkaline Phosphatase 93, Total Bilirubin 0.5, Total Protein 4.6 L, Albumin 2.1 #L 02/11/19 10:40 Microbiology Microbiology 02/09/19 Urine Culture - Final, Complete SIL MIMS February 11, 2019 12:00
[2019-02-11 16:00] VITALS: BP 121/59
[2019-02-11] MEDS: RIVAROXABAN 10 MG TAB (XARELTO) PO SCH (17:01)
[2019-02-11 20:00] VITALS: BP 100/50
[2019-02-11] MEDS: LEVEMIR (INSULIN DETEMIR) 1 UNITS/0.01ML SC SCH (21:12)
[2019-02-12 02:00] VITALS: BP 110/62
[2019-02-12 04:00] VITALS: BP 112/67
[2019-02-12 06:23] LABS: HEMATOCRIT 25.8 % (42.0-52.0); HEMOGLOBIN 8.6 g/dl (13.5-17.5); MEAN CORPUSCULAR HEMOGLOBIN 33.3 pg (27.0-33.0); MEAN CORPUSCULAR HGB CONC 33.3 g/dl (32.0-36.5); PLATELET COUNT, AUTOMATED 249 10^3/uL (150-450); RED BLOOD COUNT 2.58 10^6/uL (4.30-6.10); WHITE BLOOD COUNT 14.4 10^3/uL (4.0-10.0)
[2019-02-12 06:54] LABS: ALT/SGPT 21 U/L (12-78); BILIRUBIN,TOTAL 0.5 MG/DL (0.2-1.0); BLOOD UREA NITROGEN 23 MG/DL (7-18); CALCIUM LEVEL 7.2 MG/DL (8.8-10.2); CARBON DIOXIDE LEVEL 27 MEQ/L (21-32); CHLORIDE LEVEL 108 MEQ/L (98-107); CREATININE FOR GFR 0.68 MG/DL (0.70-1.30); GLOMERULAR FILTRATION RATE > 60.0 (>42); GLUCOSE, FASTING 161 MG/DL (70-100); POTASSIUM SERUM 3.7 MEQ/L (3.5-5.1); SODIUM LEVEL 140 MEQ/L (136-145); TOTAL PROTEIN 5.3 GM/DL (6.4-8.2)
[2019-02-12] MEDS: SENOKOT S TAB PO SCH ×3 (07:55→20:27)
[2019-02-12 08:00] VITALS: BP 105/62
[2019-02-12] MEDS: GABAPENTIN 300 MG CAP PO SCH ×2 (08:22→20:24)
[2019-02-12] MEDS: TAMSULOSIN 0.4 MG CAP PO SCH ×2 (08:23→20:23)
[2019-02-12] MEDS: ATORVASTATIN 20 MG TAB PO SCH (08:23)
[2019-02-12] MEDS: ACETAMINOPHEN 500 MG TAB PO SCH ×3 (08:23→20:23)
[2019-02-12] MEDS: PANTOPRAZOLE 40MG TAB (PROTONIX) PO SCH (08:23)
[2019-02-12] MEDS: glyBURIDE 2.5 MG TAB PO SCH ×2 (08:23→16:51)
[2019-02-12] MEDS: HumaLOG INSULIN (NovoLOG) PER UNIT SC SCH ×4 (08:24→20:24)
--- NOTE | 2019-02-12 10:13 | IPNPDOC ---
PM&R Progress Note DATE OF SERVICE: February 12, 2019 Flight Technician Progress Note Subjective: Patient concerned about needing insulin when he goes home and would prefer to just take oral medication. REVIEW OF SYSTEMS: The following is a completed review of systems and has been reviewed. Review of systems otherwise unremarkable. PAIN: Patient self reports no right hip pain EYES: Negative for recent vision changes EARS, NOSE, & THROAT: denies throat pain, does endorse hx of pain with swallowing due to GERD CARDIOVASCULAR: denies chest pain or palpitations PULMONARY: Negative. Denies shortness of breath GASTROINTESTINAL: Negative for diarrhea or constipation GENITOURINARY: +burning with urination MUSCULOSKELETAL: bilateral LE weakness NEUROLOGICAL: +peripheral neuropathy HEMATOLOGICAL:+ CLL SKIN: right hip incision PSYCHIATRIC: Unremarkable All other review of systems found to be negative. PHYSICAL EXAMINATION: VITAL SIGNS: Please see below. GENERAL: Pleasant and cooperative. No acute distress. HEENT: PERRL. Extraocular movements intact. Clear conjunctiva CARDIOVASCULAR: Regular rate and rhythm. No murmurs, rubs, or gallops LUNGS: Clear to auscultation bilaterally. No wheezes. No rhonchi ABDOMEN: Soft, nontender, nondistended. Positive bowel sounds. Normal active bowel sounds NEUROLOGICAL: Alert and oriented times three. Cranial nerves II through XII grossly intact. Sensation diminished to light touch in LE in stocking pattern, proprioception intact EXTREMITIES:5\5 strength bilateral upper extremities. 5\5 strength right ankle DF and EHL (exam limited due to recent surgery).5/5 strength in left lower extremity. SKIN: right hip incision without induration c/d/i ASSESSMENT:73-year-old M with past medical history of CLL who presents status post fall with hip fracture s/p THR PLAN: 1. rehab: PT/OT, assess for DME needs, able to ambulate better with a Platform RW 2. ortho s/p fall with right femure fracture, per ost-op radiology records s/p total hip arthroplasty- hip precautions- ortho consulted 3. Neuro: +diabetic neuropathy c/u gabapentin 4. Cardiac: pmh HTN c/u home meds- medicine consulted 5. Endo: poorly controlled DM, c/u ISS, glyburide and long active levemir at night- adjust prn, consistent carb diet-medicine recs appreciated 6. GI: pmh GERD, c/u protonix 7. DVT ppx: xarelto, teds 8. : pmh BPH with retention, branch placed over the weekend, will lower gabapentin dosing, d/c branch today and increase Flomax to BID for outlet obstruction 9, Heme: pmh CLL with chronic leukocytosis- monitor -post-op anemia, ordered FOBT 10. Pain: will switch from oxycodone to tramadol prn and monitor- c/u standing Tylenol 10. Dispo: TBD Allergies Coded Allergies: No Known Allergies (Unverified , 02/07/19) Vital Signs Vital Signs Date Time Temp Pulse Resp B/P (MAP) Pulse Ox O2 Delivery O2 Flow Rate FiO2 02/12/19 04:00 99.1 94 18 112/67 (82) 99 Laboratory Data CBC/BMP Laboratory Tests 02/11/19 10:40 02/12/19 06:10 Red Blood Count 2.58 L, Mean Corpuscular Volume 100.0 H, Mean Corpuscular Hemoglobin 33.3 H, Mean Corpuscular Hemoglobin Concent 33.3, Red Cell Distribution Width 13.0, Calcium Level 7.2 L, Aspartate Amino Transf (AST/SGOT) 13, Alanine Aminotransferase (ALT/SGPT) 21, Alkaline Phosphatase 98, Total Bilirubin 0.5, Total Protein 5.3 L, Albumin 2.0 L Labs 24H Laboratory Tests 2 02/11/19 10:40: Estimated Mean Plasma Glucose 295H, Hemoglobin A1c 11.9 02/11/19 11:32: Bedside Glucose (Misc Panel) 276H 02/11/19 16:34: Bedside Glucose (Misc Panel) 336H 02/11/19 20:15: Bedside Glucose (Misc Panel) 258H 02/12/19 06:10: Nucleated Red Blood Cells % (auto) 0.0, Anion Gap 5L, Glomerular Filtration Rate > 60.0, Blood Urea Nitrogen 23H, Creatinine 0.68L, Sodium Level 140, Potassium Level 3.7, Chloride Level 108H, Carbon Dioxide Level 27, Calcium Level 7.2L, As partate Amino Transf (AST/SGOT) 13, Alanine Aminotransferase (ALT/SGPT) 21, Alkaline Phosphatase 98, Total Bilirubin 0.5, Total Protein 5.3L, Albumin 2.0L, Albumin/Globulin Ratio 0.61L Microbiology Microbiology 02/09/19 Urine Culture - Final, Complete Current Medications Current Medications Current Medications Acetaminophen (Tylenol Tab) 650 mg DAILY PRN PO fever; Start 02/09/19 at 15:15 Acetaminophen (Tylenol Tab) 1,000 mg TID PO Last administered on 02/12/19 08:23; Start 02/09/19 at 16:00 Atorvastatin Calcium (Lipitor) 40 mg DAILY PO Last administered on 02/12/19at 08:23; Start 02/10/19 at 09:00 Bisacodyl (Dulcolax Suppository) 10 mg DAILYPRN PRN [place] CONSTIPATION; Start 02/09/19 at 15:15 Dextrose (Dextrose 50%) 25 ml ASDIRECTED PRN IV SEE LABEL COMMENTS; Start 02/09/19 at 15:15 Gabapentin (Neurontin) 300 mg BID@0900,1600 PO Last administered on 02/12/19 08:22; Start 02/09/19 at 16:00 Gabapentin (Neurontin) 600 mg QHS PO Last administered on 02/11/19at 21:10; Start 02/09/19 at 21:00 Glucagon (Glucagon) 1 mg ASDIRECTED PRN SC SEE LABEL COMMENTS; Start 02/09/19 at 15:15 Glucose (Glucose) 16 GM ASDIRECTED PRN PO SEE LABEL COMMENTS; Start 02/09/19 at 15:15 Glyburide (Diabeta, Micronase) 5 mg BID@0730,1730 PO Last administered on 02/12/19 08:23; Start 02/11/19 at 17:30 Glyburide (Diabeta, Micronase) 10 mg BID@0730,1730 PO Last administered on 02/11/19at 07:50; Start 02/09/19 at 17:30; Stop 02/11/19 at 12:05; Status DC Insulin Detemir (Levemir Insulin) 10 units QHS SC Last administered on 02/11/19 21:12; Start 02/09/19 at 21:00 Insulin Human Lispro (HumaLOG INSULIN) SEE PROTOCOL TABLE AC SC Last administered on 02/12/19at 08:24; Start 02/09/19 at 17:30 Insulin Human Lispro (HumaLOG INSULIN) SEE PROTOCOL TABLE QHS SC Last administered on 02/11/19at 21:11; Start 02/09/19 at 21:00 Ondansetron HCl (Zofran) 4 mg Q6HP PRN PO NAUSEA; Start 02/09/19 at 15:15 Oxycodone HCl (Roxicodone, Oxyir) 5 mg Q4HP PRN PO PAIN Last administered on 02/10/19at 05:57; Start 02/09/19 at 15:15 Oxycodone HCl (Roxicodone, Oxyir) 10 mg Q4HP PRN PO SEVERE PAIN (PS 8-10); Start 02/09/19 at 15:15; Stop 02/09/19 at 16:50; Status DC Pantoprazole Sodium (Protonix) 40 mg DAILY PO Last administered on 02/12/19at 08:23; Start 02/09/19 at 09:00 Rivaroxaban (Xarelto) 10 mg DAILY@1800 PO Last administered on 02/11/19at 17:01; Start 02/09/19 at 18:00; Stop 03/13/19 at 17:59 Senna/Docusate Sodium (Senokot S) 1 tab BID PO Last administered on 02/11/19at 07:50; Start 02/09/19 at 21:00 Tamsulosin HCl (Flomax) 0.4 mg DAILY PO Last administered on 02/12/19 08:23; Start 02/10/19 at 10:15 A-FIB/CHADSVASC A-FIB History Current/History of A-Fib/PAF?: No GALILEO DUFF MD February 12, 2019 10:13
[2019-02-12] MEDS: FERROUS GLUCONATE 324 MG TAB PO SCH ×2 (10:39→20:24)
--- NOTE | 2019-02-12 10:57 | IPNPDOC ---
Subjective Date Seen The patient was seen on 02/12/19. Subjective Chief Complaint/HPI Patient is a 73-year-old male, past medical history significant for diabetes mellitus, CLL, HTN, BPH who fell while doing heavy lifting onto his right side and presented to [facility] where imaging showed a right hip fracture. He underwent a total hip replacement without complication Events since last encounter Denies any over night issues, blurred vision has resolved, able to participate in physical and occupational therapy without issues today. Denies chest pain or shortness of breath Objective Physical Examination Other physical findings GENERAL: NAD SKIN : Warm, dry intact dressing to right hip HEENT: Atraumatic, normocephalic, PERRL, moist mucous membrane CV: Regular rate and rhythm, S1S2, no JVD, BLE 1+ edema, distal pulses + and palpable RESP: CTAB, no accessory muscle use noted ABDOMEN: BS+ non distended non tender MS: no joint deformities NEURO: Alert and oriented x 3, CN2-12 grossly intact PSYCH: no anxiety or agitation, appropriate mood and affect. A-FIB/CHADSVASC A-FIB History Current/History of A-Fib/PAF?: No Treatment Treatment ordered: Rivaroxaban Assessment /Plan Assessment Right Hip Fracture -S/P Right hip hemiarthroplasty -Continued in the rehabilitation unit for mobilization and strengthening Urinary retention with underlying BPH -Continue branch recommended by Urology (Vinny) -O/P follow up for urologic studies post discharge -in the interim continue Flomax -Patient would prefer a voiding trial in 2 days Type 2 diabetes mellitus -BS 161 this am with reduction of glyburide dose. -Hemoglobin A1c 11.9 -Continue levemir 10 units QHS -Continue fingerstick checks and monitoring prior to meals and bedtime -continue Diabetic diet Posthemorrhagic anemia -Continue to monitor hgb -Transfuse if less than 7 or hemodynamic compromise Orthostatic blood pressure -Improved today -Continue fall precautions and monitoring CLL with leukocytosis -No sign of acute infection. -Continue to monitor Plan/VTE VTE Prophylaxis Ordered?: Yes VS, I&O, 24H, Fishbone Vital Signs/I&O Vital Signs Date Time Temp Pulse Resp B/P (MAP) Pulse Ox O2 Delivery O2 Flow Rate FiO2 02/12/19 04:00 99.1 94 18 112/67 (82) 99 I&O- Last 24 Hours up to 6 AM 02/12/19 05:59 Intake Total 2080 ml Output Total 1750 ml Balance 330 ml Laboratory Data 24H LABS Laboratory Tests 2 02/11/19 11:32: Bedside Glucose (Misc Panel) 276H 02/11/19 16:34: Bedside Glucose (Misc Panel) 336H 02/11/19 20:15: Bedside Glucose (Misc Panel) 258H 02/12/19 06:10: Nucleated Red Blood Cells % (auto) 0.0, Anion Gap 5L, Glomerular Filtration Rate > 60.0, Blood Urea Nitrogen 23H, Creatinine 0.68L, Sodium Level 140, Potassium Level 3.7, Chloride Level 108H, Carbon Dioxide Level 27, Calcium Level 7.2L, Aspartate Amino Transf (AST/SGOT) 13, Alanine Aminotransferase (ALT/SGPT) 21, Alkaline Phosphatase 98, Total Bilirubin 0.5, Total Protein 5.3L, Albumin 2.0L, Albumin/Globulin Ratio 0.61L CBC/BMP Laboratory Tests 02/12/19 06:10 Red Blood Count 2.58 L, Mean Corpuscular Volume 100.0 H, Mean Corpuscular Hemoglobin 33.3 H, Mean Corpuscular Hemoglobin Concent 33.3, Red Cell Distribution Width 13.0, Calcium Level 7.2 L, Aspartate Amino Transf (AST/SGOT) 13, Alanine Aminotransferase (ALT/SGPT) 21, Alkaline Phosphatase 98, Total Bilirubin 0.5, Total Protein 5.3 L, Albumin 2.0 L Microbiology Microbiology 02/09/19 Urine Culture - Final, Complete SIL MIMS February 12, 2019 10:57
[2019-02-12 12:00] VITALS: BP 126/75
[2019-02-12] MEDS: GABAPENTIN 100 MG CAP PO SCH (15:14)
[2019-02-12 16:00] VITALS: BP 111/69
[2019-02-12] MEDS: RIVAROXABAN 10 MG TAB (XARELTO) PO SCH (16:51)
[2019-02-12 20:00] VITALS: BP 123/64
[2019-02-12] MEDS: LEVEMIR (INSULIN DETEMIR) 1 UNITS/0.01ML SC SCH (20:25)
[2019-02-12] MEDS ORDERED: oxyCODONE 5MG TAB PO ONE (23:15)
[2019-02-13] VITALS (7 sets, daily range): BP systolic 102–148; BP diastolic 50–81
[2019-02-13 07:02] LABS: HEMATOCRIT 28.5 % (42.0-52.0); HEMOGLOBIN 9.4 g/dl (13.5-17.5); MEAN CORPUSCULAR HEMOGLOBIN 33.3 pg (27.0-33.0); MEAN CORPUSCULAR VOLUME 101.1 fl (80.0-96.0); PLATELET COUNT, AUTOMATED 300 10^3/uL (150-450); RED BLOOD COUNT 2.82 10^6/uL (4.30-6.10)
[2019-02-13 07:27] LABS: ALBUMIN 2.1 GM/DL (3.2-5.2); ALT/SGPT 28 U/L (12-78); BILIRUBIN,TOTAL 0.5 MG/DL (0.2-1.0); BLOOD UREA NITROGEN 18 MG/DL (7-18); CALCIUM LEVEL 7.5 MG/DL (8.8-10.2); CARBON DIOXIDE LEVEL 27 MEQ/L (21-32); CHLORIDE LEVEL 107 MEQ/L (98-107); CREATININE FOR GFR 0.64 MG/DL (0.70-1.30); GLOMERULAR FILTRATION RATE > 60.0 (>42); GLUCOSE, FASTING 131 MG/DL (70-100); MAGNESIUM LEVEL 1.8 MG/DL (1.8-2.4); POTASSIUM SERUM 3.6 MEQ/L (3.5-5.1); SODIUM LEVEL 139 MEQ/L (136-145); TOTAL PROTEIN 5.5 GM/DL (6.4-8.2)
[2019-02-13 07:42] LABS: ATYPICAL LYMPH 6 % (0-5); LYMPHOCYTES 76 % (16-52); MONOCYTES 1 % (0-8); NEUTROPHILS 17 % (35-75); PLATELET ESTIMATE NORMAL (NORMAL)
[2019-02-13] MEDS: FERROUS GLUCONATE 324 MG TAB PO SCH ×2 (09:17→20:45)
[2019-02-13] MEDS: GABAPENTIN 100 MG CAP PO SCH ×2 (09:17→18:28)
[2019-02-13] MEDS: ATORVASTATIN 20 MG TAB PO SCH (09:17)
[2019-02-13] MEDS: PANTOPRAZOLE 40MG TAB (PROTONIX) PO SCH (09:17)
[2019-02-13] MEDS: TAMSULOSIN 0.4 MG CAP PO SCH ×2 (09:17→20:44)
[2019-02-13] MEDS: HumaLOG INSULIN (NovoLOG) PER UNIT SC SCH ×4 (09:17→20:47)
[2019-02-13] MEDS: SENOKOT S TAB PO SCH ×2 (09:30→20:45)
[2019-02-13] MEDS: glyBURIDE 2.5 MG TAB PO SCH ×2 (09:30→18:18)
[2019-02-13] MEDS: ACETAMINOPHEN 500 MG TAB PO SCH ×3 (09:31→20:45)
[2019-02-13] MEDS: traMADol 50 MG TAB PO PRN ×2 (12:00→21:38)
--- NOTE | 2019-02-13 12:37 | IPNPDOC ---
Subjective Date Seen The patient was seen on 02/13/19. Subjective Chief Complaint/HPI Patient is a 73-year-old male, past medical history significant for diabetes mellitus, CLL, HTN, BPH who fell while doing heavy lifting onto his right side and presented to [facility] where imaging showed a right hip fracture. He underwent a total hip replacement without complication Events since last encounter Patient complains he had significant pain last night. Was unable to sleep well due to pain. This morning feels better, denies chest pain, chills, fever, shortness of breath, nausea. Tolerating branch catheter without any issues. Bedside RN reports oxycodone was discontinued due to delirium noted with administration of medication Objective Physical Examination Other physical findings GENERAL: NAD SKIN : Warm, dry intact dressing to right hip HEENT: Atraumatic, normocephalic, PERRL, moist mucous membrane CV: irregular rate and rhythm, S1S2, no JVD, no edema, distal pulses + and palpable RESP: CTAB, no accessory muscle use noted ABDOMEN: BS+ non distended non tender MS: no joint deformities NEURO: Alert and oriented x 3, CN2-12 grossly intact PSYCH: no anxiety or agitation, appropriate mood and affect. A-FIB/CHADSVASC A-FIB History Current/History of A-Fib/PAF?: No Current Oral Anticoagulant The: Yes Assessment /Plan Assessment Right Hip Fracture -S/P Right hip hemiarthroplasty -Continued in the rehabilitation unit for mobilization and strengthening -Pain control, medication adjustment by primary team Urinary retention with underlying BPH -Continue Branch catheter -Monitoring of output -Discussed with urology, with plan to follow-up as outpatient for urologic studies -Continue Flomax Type 2 diabetes mellitus -Initially hypoglycemic with 10 mg, glyburide twice a day and Levemir insulin -Fasting blood glucose, stable with medication adjustment -Continue current regimen -Prior to meals and at bedtime blood glucose monitoring -Continue diabetic diet Posthemorrhagic anemia -Continue to monitor hgb -Transfuse if less than 7 or hemodynamic compromise Orthostatic blood pressure -Resolved -Continue fall precautions and monitoring CLL with leukocytosis -No sign of acute infection. -Continue to monitor Plan/VTE VTE Prophylaxis Ordered?: Yes VS, I&O, 24H, Fishbone Vital Signs/I&O Vital Signs Date Time Temp Pulse Resp B/P (MAP) Pulse Ox O2 Delivery O2 Flow Rate FiO2 02/13/19 12:00 20 02/13/19 10:00 98.7 88 128/81 (97) 99 I&O- Last 24 Hours up to 6 AM 02/13/19 06:00 Intake Total 1440 ml Output Total 2700 ml Balance -1260 ml Laboratory Data 24H LABS Laboratory Tests 2 02/12/19 16:28: Bedside Glucose (Misc Panel) 306H 02/12/19 19:49: Bedside Glucose (Misc Panel) 287H 02/13/19 06:23: Bedside Glucose (Misc Panel) 147H 02/13/19 06:33: White Blood Count 19.0H, Red Blood Count 2.82L, Hemoglobin 9.4L, Hematocrit 28.5L, Mean Corpuscular Volume 101.1H, Mean Corpuscular Hemoglobin 33.3H, Mean Corpuscular Hemoglobin Concent 33.0, Red Cell Distribution Width 12.8, Platelet Count 300, Lymphocytes # (Auto) , Nucleated Red Blood Cells % (auto) 0.0, Neutrophils 17L, Lymphocytes (Manual) 76H, Monocytes (Manual) 1, Atypical Lymphocytes 6H, Platelet Estimate NORMAL, Macrocytosis 1+, Anion Gap 5L, Glome rular Filtration Rate > 60.0, Blood Urea Nitrogen 18, Creatinine 0.64L, Sodium Level 139, Potassium Level 3.6, Chloride Level 107, Carbon Dioxide Level 27, Calcium Level 7.5L, Aspartate Amino Transf (AST/SGOT) 24, Alanine Aminotransferase (ALT/SGPT) 28, Alkaline Phosphatase 113, Total Bilirubin 0.5, Total Protein 5.5L, Albumin 2.1L, Magnesium Level 1.8, Albumin/Globulin Ratio 0.62L 02/13/19 11:26: Bedside Glucose (Misc Panel) 260H CBC/BMP Laboratory Tests 02/13/19 06:33 Red Blood Count 2.82 L, Mean Corpuscular Volume 101.1 H, Mean Corpuscular Hemoglobin 33.3 H, Mean Corpuscular Hemoglobin Concent 33.0, Red Cell Distribution Width 12.8, Lymphocytes # (Auto) , Calcium Level 7.5 L, Aspartate Amino Transf (AST/SGOT) 24, Alanine Aminotransferase (ALT/SGPT) 28, Alkaline Phosphatase 113, Total Bilirubin 0.5, Total Protein 5.5 L, Albumin 2.1 L Microbiology Microbiology 5/3/19 Urine Culture - Final, Complete [facility] February 13, 2019 12:37
[2019-02-13] MEDS: RIVAROXABAN 10 MG TAB (XARELTO) PO SCH (18:18)
[2019-02-13] MEDS: GABAPENTIN 300 MG CAP PO SCH (20:45)
[2019-02-13] MEDS: LEVEMIR (INSULIN DETEMIR) 1 UNITS/0.01ML SC SCH (20:46)
[2019-02-14] VITALS: BP 112/60
[2019-02-14 06:00] VITALS: BP 124/69
[2019-02-14] MEDS: traMADol 50 MG TAB PO PRN ×2 (06:21→22:01)
[2019-02-14] MEDS: ATORVASTATIN 20 MG TAB PO SCH (09:01)
[2019-02-14] MEDS: PANTOPRAZOLE 40MG TAB (PROTONIX) PO SCH (09:01)
[2019-02-14] MEDS: TAMSULOSIN 0.4 MG CAP PO SCH ×2 (09:01→22:01)
[2019-02-14] MEDS: SENOKOT S TAB PO SCH ×2 (09:01→21:00)
[2019-02-14] MEDS: GABAPENTIN 100 MG CAP PO SCH ×2 (09:01→16:11)
[2019-02-14] MEDS: glyBURIDE 2.5 MG TAB PO SCH ×2 (09:01→17:46)
[2019-02-14] MEDS: FERROUS GLUCONATE 324 MG TAB PO SCH ×2 (09:01→22:01)
[2019-02-14] MEDS: ACETAMINOPHEN 500 MG TAB PO SCH ×3 (09:02→22:00)
[2019-02-14] MEDS: HumaLOG INSULIN (NovoLOG) PER UNIT SC SCH ×4 (09:03→22:02)
[2019-02-14 10:00] VITALS: BP 123/58
--- NOTE | 2019-02-14 11:30 | IPNPDOC ---
Text Note Date of Service The patient was seen on 02/14/19. NOTE Subjective: Patient is a 73 year old male with a PMHx of CLL, HTN, DLP, BPH who presented to [facility] as a direct transfer from [facility] for R hip fracture. Patient was admitted to hospital service for further evaluation and treatment an d with a surgery was called for consultation. Patient was taken to OR on 02/08/19. Patient was transferred to ARU on 02/09/2019. Patient was seen and examined at the bedside. Currently he was seen working with physical therapy. He denies any CP, SOB, palpitations. Denies any N/V, abdominal pain, C/D or dysuria. Objective: Vitals (See below) General: Lying in bed, no acute distress, comfortable, AAOx3 HEENT: NC, AT CVS: RRR, +S1S2 Lungs: Fair air entry b/l, no evidence of wheezing, rales or rhonchi Abdomen: Soft, nondistended, tenderness Extremities: No evidence of lower extremity edema, - Calf tenderness, Decrease ROM of R hip 2/2 mild pain Assessment and plan: Right hip pain - likely 2/2 acute fracture of right hip - 2/2 mechanical fall - s/p OR (02/08/19) - Presented to the [facility] as a transfer from [facility] - Patient has received imaging at [facility]; has been reviewed by orthopedic surgery - s/p OR ruth on 02/08/2019 - Physical therapy, anticoagulation and pain control under the direction of ARU / Orthopedic surgery CLL - Chronic condition - Follows with outpatient Oncology Macrocytic anemia - No evidence of bleed - Will continue to monitor BPH; s/p urinary retention - c/w Tamsulosin - Will have outpatient f/u with Urology HTN - BP appears well controlled - Currently not on any medications DLP - c/w Atorvastatin NIDDM2 - c/w Glyburide, Levemir - c/w ISS Neuropathy - c/w Gabapentin DVT prophylaxis - Anticoagulation as per orthopedic surgery Disposition: - c/w physical therapy until cleared for DC home VS,Fishbone, I+O VS, Fishbone, I+O Vital Signs Date Time Temp Pulse Resp B/P (MAP) Pulse Ox O2 Delivery O2 Flow Rate FiO2 02/14/19 07:20 16 02/14/19 06:00 98.2 76 124/69 (87) 99 I&O- Last 24 Hours up to 6 AM 02/14/19 06:00 Intake Total 1860 ml Output Total 2150 ml Balance -290 ml JOSE LITTLEJOHN MD February 14, 2019 11:30
[2019-02-14 14:00] VITALS: BP 113/60
[2019-02-14] MEDS: RIVAROXABAN 10 MG TAB (XARELTO) PO SCH (17:46)
[2019-02-14 18:00] VITALS: BP 117/60
[2019-02-14 20:00] VITALS: BP 108/52
[2019-02-14] MEDS: GABAPENTIN 300 MG CAP PO SCH (22:01)
[2019-02-14] MEDS: LEVEMIR (INSULIN DETEMIR) 1 UNITS/0.01ML SC SCH (22:03)
[2019-02-15 00:07] VITALS: BP 138/60
[2019-02-15 05:36] VITALS: BP 138/68
[2019-02-15] MEDS: GABAPENTIN 100 MG CAP PO SCH ×2 (07:47→16:05)
[2019-02-15] MEDS: FERROUS GLUCONATE 324 MG TAB PO SCH ×2 (07:47→21:54)
[2019-02-15] MEDS: TAMSULOSIN 0.4 MG CAP PO SCH ×2 (07:47→21:55)
[2019-02-15] MEDS: PANTOPRAZOLE 40MG TAB (PROTONIX) PO SCH (07:47)
[2019-02-15] MEDS: glyBURIDE 2.5 MG TAB PO SCH ×2 (07:47→17:44)
[2019-02-15] MEDS: ATORVASTATIN 20 MG TAB PO SCH (07:47)
[2019-02-15] MEDS: traMADol 50 MG TAB PO PRN ×3 (07:48→23:55)
[2019-02-15] MEDS: ACETAMINOPHEN 500 MG TAB PO SCH ×3 (07:49→21:55)
[2019-02-15] MEDS: HumaLOG INSULIN (NovoLOG) PER UNIT SC SCH ×4 (08:55→21:00)
[2019-02-15] MEDS: SENOKOT S TAB PO SCH ×2 (09:00→21:00)
[2019-02-15 10:00] VITALS: BP 113/68
--- NOTE | 2019-02-15 10:00 | IPNPDOC ---
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 REVIEW OF SYSTEMS: The following is a completed review of systems and has been reviewed. Review of systems otherwise unremarkable. PAIN: Patient self reports no right hip pain EYES: Negative for recent vision changes EARS, NOSE, & THROAT: denies throat pain, does endorse hx of pain with swallowing due to GERD CARDIOVASCULAR: denies chest pain or palpitations PULMONARY: Negative. Denies shortness of breath GASTROINTESTINAL: Negative for diarrhea or constipation GENITOURINARY: +burning with urination MUSCULOSKELETAL: bilateral LE weakness NEUROLOGICAL: +peripheral neuropathy HEMATOLOGICAL:+ CLL SKIN: right hip incision PSYCHIATRIC: Unremarkable All other review of systems found to be negative. PHYSICAL EXAMINATION: VITAL SIGNS: Please see below. GENERAL: Pleasant and cooperative. No acute distress. HEENT: PERRL. Extraocular movements intact. Clear conjunctiva CARDIOVASCULAR: Regular rate and rhythm. No murmurs, rubs, or gallops LUNGS: Clear to auscultation bilaterally. No wheezes. No rhonchi ABDOMEN: Soft, nontender, nondistended. Positive bowel sounds. Normal active bowel sounds NEUROLOGICAL: Alert and oriented times three. Cranial nerves II through XII grossly intact. Sensation diminished to light touch in LE in stocking pattern, proprioception intact EXTREMITIES:5\5 strength bilateral upper extremities. 5\5 strength right ankle DF and EHL (exam limited due to recent surgery).5/5 strength in left lower extremity. SKIN: right hip incision without induration c/d/i ASSESSMENT:73-year-old M with past medical history of CLL who presents status post fall with hip fracture s/p THR PLAN: 1. rehab: PT/OT, assess for DME needs, able to ambulate with RW and negotiate st airs 2. ortho s/p fall with right femure fracture, per ost-op radiology records s/p total hip arthroplasty- hip precautions- ortho consulted 3. Neuro: +diabetic neuropathy c/u gabapentin 4. Cardiac: pmh HTN c/u home meds- medicine consulted 5. Endo: poorly controlled DM, c/u ISS, glyburide and long active levemir at night- adjust prn, consistent carb diet-medicine recs appreciated 6. GI: pmh GERD, c/u protonix 7. DVT ppx: xarelto, teds 8. : pmh BPH with retention, branch placed over the weekend, will lower gabapentin dosing, d/c branch today and increase Flomax to BID for outlet obstruction 9, Heme: pmh CLL with chronic leukocytosis- monitor -post-op anemia, ordered FOBT 10. Pain: c/u tramadol prn and monitor- c/u standing Tylenol 10. Dispo: TBD Allergies Coded Allergies: No Known Allergies (Unverified , 02/07/19) Vital Signs Vital Signs Date Time Temp Pulse Resp B/P (MAP) Pulse Ox O2 Delivery O2 Flow Rate FiO2 02/15/19 08:18 18 02/15/19 05:36 97.6 82 138/68 (91) 98 Laboratory Data Labs 24H Laboratory Tests 2 02/14/19 11:53: Bedside Glucose (Misc Panel) 250H 02/14/19 16:27: Bedside Glucose (Misc Panel) 365H 02/14/19 19:59: Bedside Glucose (Misc Panel) 291H 02/15/19 06:19: Bedside Glucose (Misc Panel) 168H Microbiology Microbiology 02/13/19 Stool Occult Blood (ALINA) - Final, Complete 02/09/19 Urine Culture - Final, Complete Current Medications Current Medications Current Medications Acetaminophen (Tylenol Tab) 650 mg DAILY PRN PO fever/pain; Start 02/09/19 at 15:15 Acetaminophen (Tylenol Tab) 1,000 mg TID PO Last administered on 02/15/19at 07:49; Start 02/09/19 at 16:00 Atorvastatin Calcium (Lipitor) 40 mg DAILY PO Last administered on 02/15/19at 07:47; Start 02/10/19 at 09:00 Bisacodyl (Dulcolax Suppository) 10 mg DAILYPRN PRN [place] CONSTIPATION; Start 02/09/19 at 15:15 Dextrose (Dextrose 50%) 25 ml ASDIRECTED PRN IV SEE LABEL COMMENTS; Start 02/09/19 at 15:15 Ferrous Gluconate (Fergon) 324 mg BID PO Last administered on 02/15/19at 07:47; Start 02/12/19 at 09:00 Gabapentin (Neurontin) 100 mg BID@0900,1600 PO Last administered on 02/15/19at 07:47; Start 02/12/19 at 16:00 Gabapentin (Neurontin) 300 mg BID@0900,1600 PO Last administered on 02/12/19at 08:22; Start 02/09/19 at 16:00; Stop 02/12/19 at 10:11; Status DC Gabapentin (Neurontin) 300 mg QHS PO Last administered on 02/14/19at 22:01; Start 02/12/19 at 21:00; Stop 02/15/19 at 09:31; Status DC Gabapentin (Neurontin) 300 mg QHS@2000 PO ; Start 02/15/19 at 20:00 Gabapentin (Neurontin) 600 mg QHS PO Last administered on 02/11/19at 21:10; Start 02/09/19 at 21:00; Stop 02/12/19 at 10:11; Status DC Glucagon (Glucagon) 1 mg ASDIRECTED PRN SC SEE LABEL COMMENTS; Start 02/09/19 at 15:15 Glucose (Glucose) 16 GM ASDIRECTED PRN PO SEE LABEL COMMENTS; Start 02/09/19 at 15:15 Glyburide (Diabeta, Micronase) 5 mg BID@0730,1730 PO Last administered on 02/15/19at 07:47; Start 02/11/19 at 17:30 Glyburide (Diabeta, Micronase) 10 mg BID@0730,1730 PO Last administered on 02/11/19at 07:50; Start 02/09/19 at 17:30; Stop 02/11/19 at 12:05; Status DC Insulin Detemir (Levemir Insulin) 10 units QHS SC Last administered on 02/14/19at 22:03; Start 02/09/19 at 21:00 Insulin Human Lispro (HumaLOG INSULIN) SEE PROTOCOL TABLE AC SC Last administered on 02/15/19at 08:55; Start 02/09/19 at 17:30 Insulin Human Lispro (HumaLOG INSULIN) SEE PROTOCOL TABLE QHS SC Last administered on 02/14/19at 22:02; Start 02/09/19 at 21:00 Ondansetron HCl (Zofran) 4 mg Q6HP PRN PO NAUSEA; Start 02/09/19 at 15:15; Stop 02/12/19 at 10:11; Status DC Oxycodone HCl (Roxicodone, Oxyir) 5 mg Q4HP PRN PO PAIN Last administered on 02/10/19 05:57; Start 02/09/19 at 15:15; Stop 02/12/19 at 10:11; Status DC Oxycodone HCl (Roxicodone, Oxyir) 10 mg Q4HP PRN PO SEVERE PAIN (PS 8-10); Start 02/09/19 at 15:15; Stop 02/09/19 at 16:50; Status DC Pantoprazole Sodium (Protonix) 40 mg DAILY PO Last administered on 02/15/19at 07:47; Start 02/09/19 at 09:00 Rivaroxaban (Xarelto) 10 mg DAILY@1800 PO Last administered on 02/14/19at 17:46; Start 02/09/19 at 18:00; Stop 03/13/19 at 17:59 Senna/Docusate Sodium (Senokot S) 1 tab BID PO Last administered on 02/14/19at 09:01; Start 02/09/19 at 21:00 Tamsulosin HCl (Flomax) 0.4 mg BID PO Last administered on 02/15/19at 07:47; Start 02/12/19 at 21:00 Tamsulosin HCl (Flomax) 0.4 mg DAILY PO Last administered on 02/12/19at 08:23; Start 02/10/19 at 10:15; Stop 02/12/19 at 11:48; Status DC Tramadol HCl (Ultram) 50 mg Q6HP PRN PO MODERATE PAIN (PS 5-7) Last administered on 02/15/19at 07:48; Start 02/13/19 at 11:30 A-FIB/CHADSVASC A-FIB History Current/History of A-Fib/PAF?: No GALILEO DUFF MD February 15, 2019 10:00
[2019-02-15 14:00] VITALS: BP 127/60
--- NOTE | 2019-02-15 16:55 | IPNPDOC ---
Text Note Date of Service The patient was seen on 02/15/19. NOTE Subjective: Patient is a 73 year old male with a PMHx of CLL, HTN, DLP, BPH who presented to [facility] as a direct transfer from [facility] for R hip fracture. Patient was admitted to hospital service for further evaluation and treatment an d with a surgery was called for consultation. Patient was taken to OR on 02/08/19. Patient was transferred to ARU on 02/09/2019. Patient was seen and examined at the bedside. Patient has no new concerns from overnight. He reports that he has been working with physical therapy and has been progressing. Patient has been able to urinate, although frequently. He has been having post void bladder scans that reveal he has urinary retention of less than 300 mL. Denies chest pain, short of breath or palpitations. Denies nausea, vomiting, abdominal pain, constipation or diarrhea. Objective: Vitals (See below) General: Lying in bed, no acute distress, comfortable, AAOx3 HEENT: NC, AT CVS: RRR, +S1S2 Lungs: Air entry is fair bilaterally without wheezing, rhonchi, rales Abdomen: Soft without distention or tenderness Extremities: No evidence of lower extremity edema, - Calf tenderness, Decrease ROM of R hip 2/2 mild pain Assessment and plan: Right hip pain - likely 2/2 acute fracture of right hip - 2/2 mechanical fall - s/p OR (02/08/19) - Presented to the [facility] as a transfer from [facility] - Patient has received imaging at [facility]; has been reviewed by orthopedic surgery - s/p OR repair on 02/08/2019 - Physical therapy, anticoagulation and pain control under the direction of ARU / Orthopedic surgery - Patient has been progressing physical therapy CLL - Chronic condition - Follows with outpatient Oncology Macrocytic anemia - No evidence of bleed - Will continue to monitor BPH; s/p urinary retention - c/w Tamsulosin - Will have outpatient f/u with Urology HTN - BP appears well controlled - Currently not on any medications DLP - c/w Atorvastatin NIDDM2 - c/w Glyburide, Levemir - c/w ISS Neuropathy - c/w Gabapentin DVT prophylaxis - Anticoagulation as per orthopedic surgery Disposition: - c/w physical therapy until cleared for DC home VS,Fishbone, I+O VS, Fishbone, I+O Vital Signs Date Time Temp Pulse Resp B/P (MAP) Pulse Ox O2 Delivery O2 Flow Rate FiO2 02/15/19 14:00 98.5 81 18 127/60 (82) 99 I&O- Last 24 Hours up to 6 AM 02/15/19 06:00 Intake Total 1200 ml Output Total 2275 ml Balance -1075 ml JOSE LITTLEJOHN MD February 15, 2019 16:55
[2019-02-15] MEDS: RIVAROXABAN 10 MG TAB (XARELTO) PO SCH (17:44)
[2019-02-15 18:00] VITALS: BP 115/73
--- NOTE | 2019-02-15 18:28 | REP ---
Bilateral lower extremity Duplex Doppler venous ultrasound: Real time compression and duplex Doppler interrogation of the bilateral lower extremity deep venous system is performed. Bilaterally, the common femoral, superficial femoral and popliteal veins are fully compressible with transducer pressure and demonstrate normal spontaneous and phasic flow, without evidence of deep venous thrombosis. Impression: No evidence of deep venous thrombosis of the bilateral lower extremity femoral popliteal venous system. Electronically Signed by Armen Mahoney MD 02/15/2019 06:19 P
[2019-02-15 20:00] VITALS: BP 147/69
[2019-02-15] MEDS: GABAPENTIN 300 MG CAP PO SCH (21:54)
[2019-02-15] MEDS: LEVEMIR (INSULIN DETEMIR) 1 UNITS/0.01ML SC SCH (21:55)
[2019-02-16] VITALS: BP 119/80
[2019-02-16 06:00] VITALS: BP 141/65
[2019-02-16 06:25] LABS: HEMATOCRIT 28.3 % (42.0-52.0); HEMOGLOBIN 9.4 g/dl (13.5-17.5); MEAN CORPUSCULAR HEMOGLOBIN 33.9 pg (27.0-33.0); MEAN CORPUSCULAR HGB CONC 33.2 g/dl (32.0-36.5); MEAN CORPUSCULAR VOLUME 102.2 fl (80.0-96.0); PLATELET COUNT, AUTOMATED 452 10^3/uL (150-450); RED BLOOD COUNT 2.77 10^6/uL (4.30-6.10)
[2019-02-16 06:45] LABS: BLOOD UREA NITROGEN 15 MG/DL (7-18); CALCIUM LEVEL 7.7 MG/DL (8.8-10.2); CARBON DIOXIDE LEVEL 29 MEQ/L (21-32); CHLORIDE LEVEL 103 MEQ/L (98-107); CREATININE FOR GFR 0.53 MG/DL (0.70-1.30); GLOMERULAR FILTRATION RATE > 60.0 (>42); GLUCOSE, FASTING 133 MG/DL (70-100); POTASSIUM SERUM 3.8 MEQ/L (3.5-5.1); SODIUM LEVEL 136 MEQ/L (136-145)
[2019-02-16 07:03] LABS: ATYPICAL LYMPH 20 % (0-5); EOSINOPHILS 1 % (0-5); LYMPHOCYTES 38 % (16-52); MONOCYTES 3 % (0-8); NEUTROPHILS 38 % (35-75); PLATELET ESTIMATE INCREASED (NORMAL)
--- NOTE | 2019-02-16 08:08 | IPNPDOC ---
Subjective Date Seen The patient was seen on 02/16/19. Subjective Chief Complaint/HPI debility, RIGHT CHRISTEN Events since last encounter Patient is a 73 year old male with a PMHx of CLL, HTN, DLP, BPH who presented to [facility] as a direct transfer from [facility] for R hip fracture. Patient was admitted to hospital service for further evaluation and treatment and with a surgery was called for consultation. Patient was taken to OR on 02/08/19. Patient was transferred to ARU on 02/09/2019. Patient was seen and examined at the bedside. Patient has no new concerns from overnight. He reports that he has been working with physical therapy and has been progressing. Patient has been able to urinate, although frequently. He has been having post void bladder scans that reveal he has urinary retention of less than 300 mL. Reports increase in BMs after some constipation and use of bowel meds. Gastrointestinal: Reports: Constipation; Denies: Nausea, Vomiting, Abdominal Pain Genitourinary: Reports: Frequency, Retention; Denies: Dysuria Objective Physical Examination General Exam: Positive: Alert, No Acute Distress Chest Exam: Positive: Clear to auscultation, Normal air movement Heart Exam: Positive: Rate Normal, Regular Rhythm, Normal S1, Normal S2; Negative: Murmurs, Rubs Abdomen Exam: Positive: Normal bowel sounds, Soft; Negative: Tenderness, Hepatospenomegaly A-FIB/CHADSVASC A-FIB History Current/History of A-Fib/PAF?: No Current Oral Anticoagulant The: Yes Assessment /Plan Problems (1) Hip fracture, right Status: Acute Problem Text: continue with ARU. Continue Xarelto for post-op DVT prophylaxis. (2) DM (diabetes mellitus) Status: Chronic Problem Text: using on average 6 units of regular insulin in addition to daily Levemir. Will increase Levemir to 12 units daily. Monitor glucose. Hgba1c 11.9 on 02/11. (3) CLL (chronic lymphocytic leukemia) Status: Chronic (4) HTN (hypertension) Status: Chronic Response to Treatment: Stable Problem Text: stable. (5) HLD (hyperlipidemia) Status: Chronic Response to Treatment: Stable (6) BPH (benign prostatic hyperplasia) Status: Chronic Problem Text: less than 300 ml post void residual. Monitor. No hypotension with addition of Tamsulosin. will need urology consult as an outpatient Plan/VTE VTE Prophylaxis Ordered?: Yes VS, I&O, 24H, Fishbone Vital Signs/I&O Vital Signs Date Time Temp Pulse Resp B/P (MAP) Pulse Ox O2 Delivery O2 Flow Rate FiO2 02/16/19 06:00 97.8 87 18 141/65 (90) 98 I&O- Last 24 Hours up to 6 AM 02/16/19 06:00 Intake Total 1160 ml Output Total 2050 ml Balance -890 ml Laboratory Data 24H LABS Laboratory Tests 2 02/15/19 11:19: Bedside Glucose (Misc Panel) 148H 02/15/19 16:24: Bedside Glucose (Misc Panel) 207H 02/15/19 20:01: Bedside Glucose (Misc Panel) 154H 02/16/19 06:09: White Blood Count 14.0H, Red Blood Count 2.77L, Hemoglobin 9.4L, Hematocrit 28.3L, Mean Corpuscular Volume 102.2H, Mean Corpuscular Hemoglobin 33.9H, Mean Corpuscular Hemoglobin Concent 33.2, Red Cell Distribution Width 12.8, Platelet Count 452H, Lymphocytes # (Auto) , Nucleated Red Blood Cells % (auto) 0.0, Neutrophils 38, Lymphocytes (Manual) 38, Monocytes (Manual) 3, Eosinophils (Manual) 1, Atypical Lymphocytes 20H, Platelet Estimate INCREASED, Macrocytosis 1+, Anion Gap 4L, Glomerular Filtration Rate > 60.0, Blood Urea Nitrogen 15, Creatinine 0.53L, Sodium Level 136, Potassium Level 3.8, Chloride Level 103, Carbon Dioxide Level 29, Calcium Level 7.7L CBC/BMP Laboratory Tests 02/16/19 06:09 Red Blood Count 2.77 L, Mean Corpuscular Volume 102.2 H, Mean Corpuscular Hemoglobin 33.9 H, Mean Corpuscular Hemoglobin Concent 33.2, Red Cell Distribution Width 12.8, Lymphocytes # (Auto) , Calcium Level 7.7 L Microbiology Microbiology 02/13/19 Stool Occult Blood (ALINA) - Final, Complete 02/09/19 Urine Culture - Final, Complete Jeanie Yeh MARKET ANALYST February 16, 2019 08:08
[2019-02-16] MEDS: HumaLOG INSULIN (NovoLOG) PER UNIT SC SCH ×4 (09:18→21:00)
[2019-02-16] MEDS: GABAPENTIN 100 MG CAP PO SCH ×2 (09:19→17:05)
[2019-02-16] MEDS: PANTOPRAZOLE 40MG TAB (PROTONIX) PO SCH (09:19)
[2019-02-16] MEDS: ATORVASTATIN 20 MG TAB PO SCH (09:19)
[2019-02-16] MEDS: ACETAMINOPHEN 500 MG TAB PO SCH ×3 (09:19→21:55)
[2019-02-16] MEDS: TAMSULOSIN 0.4 MG CAP PO SCH ×2 (09:19→21:55)
[2019-02-16] MEDS: FERROUS GLUCONATE 324 MG TAB PO SCH ×2 (09:19→21:54)
[2019-02-16] MEDS: glyBURIDE 2.5 MG TAB PO SCH ×2 (09:20→17:06)
[2019-02-16] MEDS: SENOKOT S TAB PO SCH ×2 (09:20→21:00)
[2019-02-16] MEDS: traMADol 50 MG TAB PO PRN ×2 (09:28→18:04)
[2019-02-16 11:30] VITALS: BP 93/55
[2019-02-16 14:00] VITALS: BP 103/58
[2019-02-16] MEDS: RIVAROXABAN 10 MG TAB (XARELTO) PO SCH (17:05)
[2019-02-16 20:00] VITALS: BP 132/75
[2019-02-16] MEDS: GABAPENTIN 300 MG CAP PO SCH (20:16)
[2019-02-16] MEDS: LEVEMIR (INSULIN DETEMIR) 1 UNITS/0.01ML SC SCH (21:56)
[2019-02-17] MEDS: traMADol 50 MG TAB PO PRN ×4 (00:07→21:32)
[2019-02-17 06:00] VITALS: BP 133/73
[2019-02-17] MEDS: glyBURIDE 2.5 MG TAB PO SCH ×2 (08:46→17:24)
[2019-02-17] MEDS: ATORVASTATIN 20 MG TAB PO SCH (08:46)
[2019-02-17] MEDS: GABAPENTIN 100 MG CAP PO SCH ×2 (08:47→17:24)
[2019-02-17] MEDS: FERROUS GLUCONATE 324 MG TAB PO SCH ×2 (08:47→20:53)
[2019-02-17] MEDS: TAMSULOSIN 0.4 MG CAP PO SCH ×2 (08:47→20:53)
[2019-02-17] MEDS: PANTOPRAZOLE 40MG TAB (PROTONIX) PO SCH (08:47)
[2019-02-17] MEDS: ACETAMINOPHEN 500 MG TAB PO SCH ×3 (08:47→20:54)
[2019-02-17] MEDS: SENOKOT S TAB PO SCH ×2 (08:47→20:53)
[2019-02-17] MEDS: HumaLOG INSULIN (NovoLOG) PER UNIT SC SCH ×4 (08:48→21:05)
--- NOTE | 2019-02-17 11:41 | IPNPDOC ---
Text Note Date of Service The patient was seen on 02/17/19. NOTE Subjective: Patient is a 73 year old male with a PMHx of CLL, HTN, DLP, BPH who presented to [facility] as a direct transfer from [facility] for R hip fracture. Patient was taken to OR on 02/08/19. Patient was transferred to ARU on 02/09/2019. Patient was seen and examined at the bedside. Patient has no new concerns from overnight. He reports that he has been working with physical therapy and has been progressing. His sugars are better controlled so he is very happy about that says he is working on his diet. he does have some frequency of urination. He has been having post void bladder scans that reveal he has urinary retention of less than 300 mL. Denies chest pain, short of breath or palpitations. Denies nausea, vomiting, abdominal pain, constipation or diarrhea. Objective: Vitals (See below) General: Lying in bed, no acute distress, comfortable, AAOx3 HEENT: NC, AT, moist mucous membranes , anicteric eyes. CVS: RRR, +S1S2, No rub murmur or gallop Lungs: Air entry is fair bilaterally without wheezing, rhonchi, rales Abdomen: Soft without distention or tenderness Extremities: No evidence of lower extremity edema, - Calf tenderness, Decrease ROM of R hip 2/2 mild pain Assessment and plan: Right hip pain - due to acute fracture of right hip - 2/2 mechanical fall - s/p OR (02/08/19) - Presented to the [facility] as a transfer from [facility] - s/p OR repair on 02/08/2019. Had right hip cemented arthroplasty - Physical therapy, anticoagulation and pain control under the direction of ARU / Orthopedic surgery - Patient has been progressing well physical therapy CLL - Chronic condition - Follows with outpatient Oncology - Has chronic leucocytosis. Macrocytic anemia - No evidence of bleed - Will continue to monitor BPH; s/p urinary retention - c/w Tamsulosin - Will have outpatient f/u with Urology HTN - BP appears well controlled - Currently not on any medications DLP - c/w Atorvastatin NIDDM2 - uncontrolled A1c 11.9 - c/w Glyburide, Levemir - c/w ISS\ - Sugars better controlled now. Neuropathy - c/w Gabapentin DVT prophylaxis - Anticoagulation as per orthopedic surgery Disposition: - c/w physical therapy until cleared for DC home A-FIB/CHADSVASC A-FIB History Current/History of A-Fib/PAF?: No VS,Fishbone, I+O VS, Fishbone, I+O Vital Signs Date Time Temp Pulse Resp B/P (MAP) Pulse Ox O2 Delivery O2 Flow Rate FiO2 02/17/19 06:48 18 02/17/19 06:00 97.6 91 133/73 (93) 98 I&O- Last 24 Hours up to 6 AM 02/17/19 06:00 Intake Total 1080 ml Output Total 2225 ml Balance -1145 ml FREDDY AZAR MD February 17, 2019 11:41
[2019-02-17 14:00] VITALS: BP 113/66
[2019-02-17] MEDS: RIVAROXABAN 10 MG TAB (XARELTO) PO SCH (17:25)
[2019-02-17 20:00] VITALS: BP 126/71
[2019-02-17] MEDS: GABAPENTIN 300 MG CAP PO SCH (20:53)
[2019-02-17] MEDS: LEVEMIR (INSULIN DETEMIR) 1 UNITS/0.01ML SC SCH (20:57)
[2019-02-18 06:00] VITALS: BP 125/70
[2019-02-18] MEDS: traMADol 50 MG TAB PO PRN ×3 (07:32→22:11)
[2019-02-18] MEDS: ATORVASTATIN 20 MG TAB PO SCH (08:43)
[2019-02-18] MEDS: HumaLOG INSULIN (NovoLOG) PER UNIT SC SCH ×4 (08:43→20:22)
[2019-02-18] MEDS: ACETAMINOPHEN 500 MG TAB PO SCH ×3 (08:43→20:22)
[2019-02-18] MEDS: TAMSULOSIN 0.4 MG CAP PO SCH ×2 (08:44→20:22)
[2019-02-18] MEDS: FERROUS GLUCONATE 324 MG TAB PO SCH ×2 (08:44→20:22)
[2019-02-18] MEDS: PANTOPRAZOLE 40MG TAB (PROTONIX) PO SCH (08:44)
[2019-02-18] MEDS: GABAPENTIN 100 MG CAP PO SCH ×2 (08:44→15:17)
[2019-02-18] MEDS: glyBURIDE 2.5 MG TAB PO SCH ×2 (08:44→17:08)
[2019-02-18] MEDS: SENOKOT S TAB PO SCH ×2 (08:44→20:22)
--- NOTE | 2019-02-18 11:15 | IPNPDOC ---
Subjective Date Seen The patient was seen on 02/18/19. Subjective Chief Complaint/HPI Patient doing well today. working with PT. Objective Physical Examination General Exam: Positive: Alert, No Acute Distress Chest Exam: Positive: Clear to auscultation, Normal air movement Heart Exam: Positive: Rate Normal, Regular Rhythm, Normal S1, Normal S2; Negative: Murmurs, Rubs Abdomen Exam: Positive: Normal bowel sounds, Soft; Negative: Tenderness, Hepatospenomegaly Assessment /Plan Problems (1) Hip fracture, right Status: Acute Problem Text: continue with ARU. Continue Xarelto for post-op DVT prophylaxis. (2) DM (diabetes mellitus) Status: Chronic Problem Text: using on average 6 units of regular insulin in addition to daily Levemir. Will increase Levemir to 12 units daily. Monitor glucose. Hgba1c 11.9 on 02/11. (3) CLL (chronic lymphocytic leukemia) Status: Chronic (4) HTN (hypertension) Status: Chronic Response to Treatment: Stable Problem Text: stable. (5) HLD (hyperlipidemia) Status: Chronic Response to Treatment: Stable (6) BPH (benign prostatic hyperplasia) Status: Chronic Problem Text: less than 300 ml post void residual. Monitor. No hypotension with addition of Tamsulosin. will need urology consult as an outpatient Plan/VTE VTE Prophylaxis Ordered?: Yes VS, I&O, 24H, Fishbone Vital Signs/I&O Vital Signs Date Time Temp Pulse Resp B/P (MAP) Pulse Ox O2 Delivery O2 Flow Rate FiO2 02/18/19 08:02 18 02/18/19 06:00 98.2 82 125/70 (88) 97 I&O- Last 24 Hours up to 6 AM 02/18/19 06:00 Intake Total 1160 ml Output Total 4725 ml Balance -3565 ml Laboratory Data 24H LABS Laboratory Tests 2 02/17/19 11:30: Bedside Glucose (Misc Panel) 154H 02/17/19 16:31: Bedside Glucose (Misc Panel) 114H 02/17/19 19:35: Bedside Glucose (Misc Panel) 199H 02/18/19 06:21: Bedside Glucose (Misc Panel) 107 Microbiology Microbiology 02/13/19 Stool Occult Blood (ALINA) - Final, Complete 02/09/19 Urine Culture - Final, Complete FREDDY AZAR MD February 18, 2019 11:14
[2019-02-18 14:22] VITALS: BP 140/64
[2019-02-18] MEDS: RIVAROXABAN 10 MG TAB (XARELTO) PO SCH (17:08)
[2019-02-18 20:00] VITALS: BP 151/72
[2019-02-18] MEDS: LEVEMIR (INSULIN DETEMIR) 1 UNITS/0.01ML SC SCH (20:21)
[2019-02-18] MEDS: GABAPENTIN 300 MG CAP PO SCH (20:21)
[2019-02-19 06:00] VITALS: BP 130/80
[2019-02-19] MEDS: traMADol 50 MG TAB PO PRN ×3 (06:07→20:24)
[2019-02-19] MEDS: PANTOPRAZOLE 40MG TAB (PROTONIX) PO SCH (09:25)
[2019-02-19] MEDS: ACETAMINOPHEN 500 MG TAB PO SCH ×3 (09:25→20:23)
[2019-02-19] MEDS: HumaLOG INSULIN (NovoLOG) PER UNIT SC SCH ×4 (09:25→20:25)
[2019-02-19] MEDS: FERROUS GLUCONATE 324 MG TAB PO SCH ×2 (09:26→20:23)
[2019-02-19] MEDS: ATORVASTATIN 20 MG TAB PO SCH (09:26)
[2019-02-19] MEDS: SENOKOT S TAB PO SCH ×2 (09:26→20:23)
[2019-02-19] MEDS: GABAPENTIN 100 MG CAP PO SCH (09:26)
[2019-02-19] MEDS: glyBURIDE 2.5 MG TAB PO SCH ×2 (09:26→17:07)
[2019-02-19] MEDS ORDERED: PILL CRUSHER/CUTTER 1 EACH XX PRN (10:30)
--- NOTE | 2019-02-19 11:44 | IPNPDOC ---
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 He denies any dizziness today. REVIEW OF SYSTEMS: The following is a completed review of systems and has been reviewed. Review of systems otherwise unremarkable. PAIN: Patient self reports no right hip pain EYES: Negative for recent vision changes EARS, NOSE, & THROAT: denies throat pain, does endorse hx of pain with swallowing due to GERD CARDIOVASCULAR: denies chest pain or palpitations PULMONARY: Negative. Denies shortness of breath GASTROINTESTINAL: Negative for diarrhea or constipation GENITOURINARY: +burning with urination (improved) MUSCULOSKELETAL: bilateral LE weakness NEUROLOGICAL: +peripheral neuropathy HEMATOLOGICAL:+ CLL SKIN: right hip incision PSYCHIATRIC: Unremarkable All other review of systems found to be negative. PHYSICAL EXAMINATION: VITAL SIGNS: Please see below. GENERAL: Pleasant and cooperative. No acute distress. HEENT: PERRL. Extraocular movements intact. Clear conjunctiva CARDIOVASCULAR: Regular rate and rhythm. No murmurs, rubs, or gallops LUNGS: Clear to auscultation bilaterally. No wheezes. No rhonchi ABDOMEN: Soft, nontender, nondistended. Positive bowel sounds. Normal active bowel sounds NEUROLOGICAL: Alert and oriented times three. Cranial nerves II through XII grossly intact. Sensation diminished to light touch in LE in stocking pattern, proprioception intact EXTREMITIES:5\5 strength bilateral upper extremities. 5\5 strength right ankle DF and EHL (exam limited due to recent surgery).5/5 strength in left lower extremity. SKIN: right hip incision without induration c/d/i ASSESSMENT:73-year-old M with past medical history of CLL who presents status post fall with hip fracture s/p THR PLAN: 1. rehab: PT/OT, assess for DME needs, able to ambulate with RW and negotiate stairs 2. ortho s/p fall with right femure fracture, per ost-op radiology records s/p total hip arthroplasty- hip precautions- ortho consulted 3. Neuro: +diabetic neuropathy c/u gabapentin 4. Cardiac: pmh HTN c/u home meds- medicine consulted 5. Endo: poorly controlled DM, c/u ISS, glyburide 10mg BID and long active l evemir at night- adjust prn, consistent carb diet-medicine recs appreciated 6. GI: pmh GERD, c/u protonix 7. DVT ppx: xarelto, teds 8. : pmh BPH with retention, branch placed over the weekend, c/u lower gabapentin dosing, f d/c'ed c/u Flomax qHS for outlet obstruction, holding am dose for episodes of dizziness on 02/19/19 9, Heme: pmh CLL with chronic leukocytosis- monitor -post-op anemia, FOBT negative 10. Pain: c/u lower dose of tramadol prn and monitor- c/u standing Tylenol 10. Dispo: 02/27/19 to home or with family Allergies Coded Allergies: No Known Allergies (Unverified , 02/07/19) Vital Signs Vital Signs Date Time Temp Pulse Resp B/P (MAP) Pulse Ox O2 Delivery O2 Flow Rate FiO2 02/19/19 07:46 18 02/19/19 06:00 98.4 80 130/80 (97) 98 Laboratory Data Labs 24H Laboratory Tests 2 02/18/19 16:23: Bedside Glucose (Misc Panel) 261H 02/18/19 19:41: Bedside Glucose (Misc Panel) 147H 02/19/19 06:44: Bedside Glucose (Misc Panel) 154H Microbiology Microbiology 02/13/19 Stool Occult Blood (ALINA) - Final, Complete 02/09/19 Urine Culture - Final, Complete Current Medications Current Medications Current Medications Acetaminophen (Tylenol Tab) 650 mg DAILY PRN PO fever/pain; Start 02/09/19 at 15:15 Acetaminophen (Tylenol Tab) 1,000 mg TID PO Last administered on 02/19/19at 09:25; Start 02/09/19 at 16:00 Atorvastatin Calcium (Lipitor) 40 mg DAILY PO Last administered on 02/19/19at 09:26; Start 02/10/19 at 09:00 Bisacodyl (Dulcolax Suppository) 10 mg DAILYPRN PRN [place] CONSTIPATION; Start 02/09/19 at 15:15 Dextrose (Dextrose 50%) 25 ml ASDIRECTED PRN IV SEE LABEL COMMENTS; Start 02/09/19 at 15:15 Ferrous Gluconate (Fergon) 324 mg BID PO Last administered on 02/19/19at 09:26; Start 02/12/19 at 09:00 Gabapentin (Neurontin) 100 mg BID@0900,1600 PO Last administered on 02/19/19 09:26; Start 02/12/19 at 16:00 Gabapentin (Neurontin) 300 mg BID@0900,1600 PO Last administered on 02/12/19at 08:22; Start 02/09/19 at 16:00; Stop 02/12/19 at 10:11; Status DC Gabapentin (Neurontin) 300 mg QHS PO Last administered on 02/14/19at 22:01; Start 02/12/19 at 21:00; Stop 02/15/19 at 09:31; Status DC Gabapentin (Neurontin) 300 mg QHS@2000 PO Last administered on 02/18/19at 20:21; Start 02/15/19 at 20:00 Gabapentin (Neurontin) 600 mg QHS PO Last administered on 02/11/19at 21:10; Start 02/09/19 at 21:00; Stop 02/12/19 at 10:11; Status DC Glucagon (Glucagon) 1 mg ASDIRECTED PRN SC SEE LABEL COMMENTS; Start 02/09/19 at 15:15 Glucose (Glucose) 16 GM ASDIRECTED PRN PO SEE LABEL COMMENTS; Start 02/09/19 at 15:15 Glyburide (Diabeta, Micronase) 5 mg BID@0730,1730 PO Last administered on 02/19/19at 09:26; Start 02/11/19 at 17:30; Stop 02/19/19 at 10:43; Status DC Glyburide (Diabeta, Micronase) 10 mg BID@0730,1730 PO ; Start 02/19/19 at 17:30 Glyburide (Diabeta, Micronase) 10 mg BID@0730,1730 PO Last administered on 02/11/19at 07:50; Start 02/09/19 at 17:30; Stop 02/11/19 at 12:05; Status DC Insulin Detemir (Levemir Insulin) 5 units QHS SC ; Start 02/19/19 at 21:00 Insulin Detemir (Levemir Insulin) 10 units QHS SC Last administered on 02/15/19at 21:55; Start 02/09/19 at 21:00; Stop 02/16/19 at 07:58; Status DC Insulin Detemir (Levemir Insulin) 12 units QHS SC Last administered on 02/18/19 20:21; Start 02/16/19 at 21:00; Stop 02/19/19 at 10:43; Status DC Insulin Human Lispro (HumaLOG INSULIN) SEE PROTOCOL TABLE AC SC Last administered on 02/19/19 09:25; Start 02/09/19 at 17:30 Insulin Human Lispro (HumaLOG INSULIN) SEE PROTOCOL TABLE QHS SC Last administered on 02/14/19at 22:02; Start 02/09/19 at 21:00 Ondansetron HCl (Zofran) 4 mg Q6HP PRN PO NAUSEA; Start 02/09/19 at 15:15; Stop 02/12/19 at 10:11; Status DC Oxycodone HCl (Roxicodone, Oxyir) 5 mg Q4HP PRN PO PAIN Last administered on 02/10/19 05:57; Start 02/09/19 at 15:15; Stop 02/12/19 at 10:11; Status DC Oxycodone HCl (Roxicodone, Oxyir) 10 mg Q4HP PRN PO SEVERE PAIN (PS 8-10); Start 02/09/19 at 15:15; Stop 02/09/19 at 16:50; Status DC Pantoprazole Sodium (Protonix) 40 mg DAILY PO Last administered on 02/19/19 09:25; Start 02/09/19 at 09:00 Rivaroxaban (Xarelto) 10 mg DAILY@1800 PO Last administered on 02/18/19 17:08; Start 02/09/19 at 18:00; Stop 03/13/19 at 17:59 Senna/Docusate Sodium (Senokot S) 1 tab BID PO Last administered on 02/19/19 09:26; Start 02/09/19 at 21:00 Tamsulosin HCl (Flomax) 0.4 mg BID PO Last administered on 02/18/19 20:22; Start 02/12/19 at 21:00 Tamsulosin HCl (Flomax) 0.4 mg DAILY PO Last administered on 02/12/19 08:23; Start 02/10/19 at 10:15; Stop 02/12/19 at 11:48; Status DC Tramadol HCl (Ultram) 25 mg Q6HP PRN PO MODERATE PAIN (PS 5-7); Start 02/19/19 at 10:30 Tramadol HCl (Ultram) 50 mg Q6HP PRN PO MODERATE PAIN (PS 5-7) Last administered on 02/19/19at 06:07; Start 02/13/19 at 11:30; Stop 02/19/19 at 10:16; Status DC A-FIB/CHADSVASC A-FIB History Current/History of A-Fib/PAF?: No GALILEO DUFF MD February 19, 2019 11:44
--- NOTE | 2019-02-19 11:44 | IPNPDOC ---
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 He would like to taper off of it if possible. REVIEW OF SYSTEMS: The following is a completed review of systems and has been reviewed. Review of systems otherwise unremarkable. PAIN: Patient self reports no right hip pain EYES: Negative for recent vision changes EARS, NOSE, & THROAT: denies throat pain, does endorse hx of pain with swallowing due to GERD CARDIOVASCULAR: denies chest pain or palpitations PULMONARY: Negative. Denies shortness of breath GASTROINTESTINAL: Negative for diarrhea or constipation GENITOURINARY: +burning with urination (improved) MUSCULOSKELETAL: bilateral LE weakness NEUROLOGICAL: +peripheral neuropathy HEMATOLOGICAL:+ CLL SKIN: right hip incision PSYCHIATRIC: Unremarkable All other review of systems found to be negative. PHYSICAL EXAMINATION: VITAL SIGNS: Please see below. GENERAL: Pleasant and cooperative. No acute distress. HEENT: PERRL. Extraocular movements intact. Clear conjunctiva CARDIOVASCULAR: Regular rate and rhythm. No murmurs, rubs, or gallops LUNGS: Clear to auscultation bilaterally. No wheezes. No rhonchi ABDOMEN: Soft, nontender, nondistended. Positive bowel sounds. Normal active bowel sounds NEUROLOGICAL: Alert and oriented times three. Cranial nerves II through XII grossly intact. Sensation diminished to light touch in LE in stocking pattern, proprioception intact EXTREMITIES:5\5 strength bilateral upper extremities. 5\5 strength right ankle DF and EHL (exam limited due to recent surgery).5/5 strength in left lower extremity. SKIN: right hip incision without induration c/d/i ASSESSMENT:73-year-old M with past medical history of CLL who presents status post fall with hip fracture s/p THR PLAN: 1. rehab: PT/OT, assess for DME needs, able to ambulate with RW and negotiate stairs 2. ortho s/p fall with right femure fracture, per ost-op radiology records s/p total hip arthroplasty- hip precautions- ortho consulted 3. Neuro: +diabetic neuropathy c/u gabapentin 4. Cardiac: pmh HTN c/u home meds- medicine consulted 5. Endo: poorly controlled DM, c/u ISS, glyburide and long active levemir at night- adjust prn, consistent carb diet-medicine recs appreciated 6. GI: pmh GERD, c/u protonix 7. DVT ppx: kana streeter 8. : pmh BPH with retention, branch placed over the weekend, will lower gabapentin dosing, d/c branch today and increase Flomax to BID for outlet obstruction 9, Heme: pmh CLL with chronic leukocytosis- monitor -post-op anemia, FOBT negative 10. Pain: c/u tramadol prn and monitor- c/u standing Tylenol 10. Dispo: TBD Allergies Coded Allergies: No Known Allergies (Unverified , 02/07/19) Vital Signs Vital Signs Date Time Temp Pulse Resp B/P (MAP) Pulse Ox O2 Delivery O2 Flow Rate FiO2 02/19/19 07:46 18 02/19/19 06:00 98.4 80 130/80 (97) 98 Laboratory Data Labs 24H Laboratory Tests 2 02/18/19 16:23: Bedside Glucose (Misc Panel) 261H 02/18/19 19:41: Bedside Glucose (Misc Panel) 147H 02/19/19 06:44: Bedside Glucose (Misc Panel) 154H Microbiology Microbiology 02/13/19 Stool Occult Blood (ALINA) - Final, Complete 02/09/19 Urine Culture - Final, Complete Current Medications Current Medications Current Medications Acetaminophen (Tylenol Tab) 650 mg DAILY PRN PO fever/pain; Start 02/09/19 at 15:15 Acetaminophen (Tylenol Tab) 1,000 mg TID PO Last administered on 02/19/19at 09:25; Start 02/09/19 at 16:00 Atorvastatin Calcium (Lipitor) 40 mg DAILY PO Last administered on 02/19/19at 09:26; Start 02/10/19 at 09:00 Bisacodyl (Dulcolax Suppository) 10 mg DAILYPRN PRN [place] CONSTIPATION; Start 02/09/19 at 15:15 Dextrose (Dextrose 50%) 25 ml ASDIRECTED PRN IV SEE LABEL COMMENTS; Start 02/09/19 at 15:15 Ferrous Gluconate (Fergon) 324 mg BID PO Last administered on 02/19/19at 09:26; Start 02/12/19 at 09:00 Gabapentin (Neurontin) 100 mg BID@0900,1600 PO Last administered on 02/19/19at 09:26; Start 02/12/19 at 16:00 Gabapentin (Neurontin) 300 mg BID@0900,1600 PO Last administered on 02/12/19at 08:22; Start 02/09/19 at 16:00; Stop 02/12/19 at 10:11; Status DC Gabapentin (Neurontin) 300 mg QHS PO Last administered on 02/14/19at 22:01; Start 02/12/19 at 21:00; Stop 02/15/19 at 09:31; Status DC Gabapentin (Neurontin) 300 mg QHS@2000 PO Last administered on 02/18/19at 20:21; Start 02/15/19 at 20:00 Gabapentin (Neurontin) 600 mg QHS PO Last administered on 02/11/19at 21:10; Start 02/09/19 at 21:00; Stop 02/12/19 at 10:11; Status DC Glucagon (Glucagon) 1 mg ASDIRECTED PRN SC SEE LABEL COMMENTS; Start 02/09/19 at 15:15 Glucose (Glucose) 16 GM ASDIRECTED PRN PO SEE LABEL COMMENTS; Start 02/09/19 at 15:15 Glyburide (Diabeta, Micronase) 5 mg BID@0730,1730 PO Last administered on 02/19/19at 09:26; Start 02/11/19 at 17:30; Stop 02/19/19 at 10:43; Status DC Glyburide (Diabeta, Micronase) 10 mg BID@0730,1730 PO ; Start 02/19/19 at 17:30 Glyburide (Diabeta, Micronase) 10 mg BID@0730,1730 PO Last administered on 02/11/19at 07:50; Start 02/09/19 at 17:30; Stop 02/11/19 at 12:05; Status DC Insulin Detemir (Levemir Insulin) 5 units QHS SC ; Start 02/19/19 at 21:00 Insulin Detemir (Levemir Insulin) 10 units QHS SC Last administered on 02/15/19at 21:55; Start 02/09/19 at 21:00; Stop 02/16/19 at 07:58; Status DC Insulin Detemir (Levemir Insulin) 12 units QHS SC Last administered on 02/18/19at 20:21; Start 02/16/19 at 21:00; Stop 02/19/19 at 10:43; Status DC Insulin Human Lispro (HumaLOG INSULIN) SEE PROTOCOL TABLE AC SC Last administered on 02/19/19 09:25; Start 02/09/19 at 17:30 Insulin Human Lispro (HumaLOG INSULIN) SEE PROTOCOL TABLE QHS SC Last administered on 02/14/19 22:02; Start 02/09/19 at 21:00 Ondansetron HCl (Zofran) 4 mg Q6HP PRN PO NAUSEA; Start 02/09/19 at 15:15; Stop 02/12/19 at 10:11; Status DC Oxycodone HCl (Roxicodone, Oxyir) 5 mg Q4HP PRN PO PAIN Last administered on 02/10/19 05:57; Start 02/09/19 at 15:15; Stop 02/12/19 at 10:11; Status DC Oxycodone HCl (Roxicodone, Oxyir) 10 mg Q4HP PRN PO SEVERE PAIN (PS 8-10); Start 02/09/19 at 15:15; Stop 02/09/19 at 16:50; Status DC Pantoprazole Sodium (Protonix) 40 mg DAILY PO Last administered on 02/19/19 09:25; Start 02/09/19 at 09:00 Rivaroxaban (Xarelto) 10 mg DAILY@1800 PO Last administered on 02/18/19 17:08; Start 02/09/19 at 18:00; Stop 03/13/19 at 17:59 Senna/Docusate Sodium (Senokot S) 1 tab BID PO Last administered on 02/19/19 09:26; Start 02/09/19 at 21:00 Tamsulosin HCl (Flomax) 0.4 mg BID PO Last administered on 02/18/19 20:22; Start 02/12/19 at 21:00 Tamsulosin HCl (Flomax) 0.4 mg DAILY PO Last administered on 02/12/19 08:23; Start 02/10/19 at 10:15; Stop 02/12/19 at 11:48; Status DC Tramadol HCl (Ultram) 25 mg Q6HP PRN PO MODERATE PAIN (PS 5-7); Start 02/19/19 at 10:30 Tramadol HCl (Ultram) 50 mg Q6HP PRN PO MODERATE PAIN (PS 5-7) Last admi nistered on 02/19/19at 06:07; Start 02/13/19 at 11:30; Stop 02/19/19 at 10:16; Status DC A-FIB/CHADSVASC A-FIB History Current/History of A-Fib/PAF?: No GALILEO DUFF MD February 19, 2019 11:44
--- NOTE | 2019-02-19 11:52 | IPNPDOC ---
Subjective Date Seen The patient was seen on 02/19/19. Subjective Chief Complaint/HPI Patient is a 73-year-old male, past medical history significant for diabetes mellitus, CLL, HTN, BPH who fell while doing heavy lifting onto his right side and presented to [facility] where imaging showed a right hip fracture. He underwent a total hip replacement without complication Events since last encounter Complains of lightheadedness and dizziness while ambulating with PT. Staff state blood pressure dropped to SBP of 80s. Feels it may be due to flomax. Denies chest pain or SOB Objective Physical Examination General Exam: Positive: Alert, No Acute Distress Chest Exam: Positive: Clear to auscultation, Normal air movement Heart Exam: Positive: Rate Normal, Regular Rhythm, Normal S1, Normal S2 Abdomen Exam: Positive: Normal bowel sounds, Soft Other physical findings GENERAL: NAD SKIN : Warm, dry intact HEENT: Atraumatic, normocephalic, PERRL, moist mucous membrane CV: irregular rate and rhythm, S1S2, no JVD, BLE edema, distal pulses not palpable RESP: CTAB, no accessory muscle use noted ABDOMEN: BS+ non distended non tender MS: no joint deformities NEURO: Alert and oriented x 3, CN2-12 grossly intact PSYCH: no anxiety or agitation, appropriate mood and affect. A-FIB/CHADSVASC A-FIB History Current/History of A-Fib/PAF?: No Current Oral Anticoagulant The: No Assessment /Plan Assessment Right hip pain - S/P right hip surgical repair 02/08/2019 - Physical therapy, anticoagulation and pain control under the direction of ARU / Orthopedic surgery - Patient has been progressing with physical therapy CLL -Chronic condition -stable -WBC monitored during hospitalization -followed by outpatient Oncology Macrocytic anemia - No evidence of bleed - Will continue to monitor BPH with urinary retention - started on and continued on Tamsulosin -initially had branch cath placed which has since been discontinued -patient voiding with residual of 100ml per RN -Discussed with Urology(Dr Flores) who want patient to follow up with them for evaluation after discharge HTN -Episodes of orthostatic BP with PT -think it may be due to flomax -patient has not been evaluated by cardiology -also has sinus arrhtymia -O/P follow up with cardiology T2DM -continue levemir and glyburide -FS checks prior to meals and at bedside -coverage with insulin per sliding scale protocol Neuropathy - c/w Gabapentin DVT prophylaxis - Anticoagulation as per orthopedic surgery Plan/VTE VTE Prophylaxis Ordered?: Yes VS, I&O, 24H, Fishbone Vital Signs/I&O Vital Signs Date Time Temp Pulse Resp B/P (MAP) Pulse Ox O2 Delivery O2 Flow Rate FiO2 02/19/19 07:46 18 02/19/19 06:00 98.4 80 130/80 (97) 98 I&O- Last 24 Hours up to 6 AM 02/19/19 06:00 Intake Total 2040 ml Output Total 3200 ml Balance -1160 ml Laboratory Data 24H LABS Laboratory Tests 2 02/18/19 11:34: Bedside Glucose (Misc Panel) 209H 02/18/19 16:23: Bedside Glucose (Misc Panel) 261H 02/18/19 19:41: Bedside Glucose (Misc Panel) 147H 02/19/19 06:44: Bedside Glucose (Misc Panel) 154H Microbiology Microbiology 02/13/19 Stool Occult Blood (ALINA) - Final, Complete 02/09/19 Urine Culture - Final, Complete 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
[2019-02-19 14:00] VITALS: BP 132/77
[2019-02-19] MEDS: RIVAROXABAN 10 MG TAB (XARELTO) PO SCH (17:07)
--- NOTE | 2019-02-19 18:50 | ECGEPIP ---
Stationary ECG Study [facility] Test Date: 2019-02-19 Pat Name: MITESH WATTS Department: Room: [place] [address] Gender: M Tick Eradicator: JOAQUÍN : 1945 Requested By: GALILEO DUFF Order Number: [id number] Reading MD: Anuja Faulkner Measurements Intervals [place] Rate: 78 P: 49 [place]: 141 QRS: -12 QRSD: 110 T: 30 QT: 400 QTc: 456 Interpretive Statements SINUS RHYTHM WITH WITH FREQUENT SUPRAVENTRICULAR PREMATURE COMPLEXES ABNORMAL RHYTHM ECG SIMILAR TO 02/08/19 Electronically Signed On 02-19-2019 18:49:34 EDT by Anuja Faulkner
[2019-02-19 20:00] VITALS: BP 126/67
[2019-02-19] MEDS: GABAPENTIN 300 MG CAP PO SCH (20:23)
[2019-02-19] MEDS: TAMSULOSIN 0.4 MG CAP PO SCH (20:23)
[2019-02-19] MEDS ORDERED: LEVEMIR (INSULIN DETEMIR) 1 UNITS/0.01ML SC SCH (21:00)
[2019-02-20] MEDS: traMADol 50 MG TAB PO PRN ×2 (02:43→09:18)
[2019-02-20 06:00] VITALS: BP 130/80
[2019-02-20 06:40] LABS: HEMATOCRIT 28.9 % (42.0-52.0); HEMOGLOBIN 9.4 g/dl (13.5-17.5); MEAN CORPUSCULAR HEMOGLOBIN 33.8 pg (27.0-33.0); MEAN CORPUSCULAR HGB CONC 32.5 g/dl (32.0-36.5); PLATELET COUNT, AUTOMATED 623 10^3/uL (150-450); RED BLOOD COUNT 2.78 10^6/uL (4.30-6.10)
[2019-02-20 06:44] LABS: WHITE BLOOD COUNT 13.5 10^3/uL (4.0-10.0)
[2019-02-20 07:01] LABS: BLOOD UREA NITROGEN 13 MG/DL (7-18); CALCIUM LEVEL 7.8 MG/DL (8.8-10.2); CARBON DIOXIDE LEVEL 28 MEQ/L (21-32); CHLORIDE LEVEL 104 MEQ/L (98-107); CREATININE FOR GFR 0.54 MG/DL (0.70-1.30); GLOMERULAR FILTRATION RATE > 60.0 (>42); GLUCOSE, FASTING 194 MG/DL (70-100); SODIUM LEVEL 138 MEQ/L (136-145)
[2019-02-20 07:08] LABS: ATYPICAL LYMPH 3 % (0-5); BASOPHILS 1 % (0-4); LYMPHOCYTES 75 % (16-52); MONOCYTES 2 % (0-8); NEUTROPHILS 19 % (35-75)
[2019-02-20 07:09] LABS: PLATELET ESTIMATE INCREASED (NORMAL)
[2019-02-20 07:10] LABS: POLYCHROMASIA 1+
[2019-02-20] MEDS ORDERED: SITagliptin 50 MG TAB (JANUVIA) PO SCH (09:00)
[2019-02-20] MEDS: HumaLOG INSULIN (NovoLOG) PER UNIT SC SCH ×4 (09:16→20:17)
[2019-02-20] MEDS: FERROUS GLUCONATE 324 MG TAB PO SCH ×2 (09:16→20:16)
[2019-02-20] MEDS: PANTOPRAZOLE 40MG TAB (PROTONIX) PO SCH (09:16)
[2019-02-20] MEDS: glyBURIDE 2.5 MG TAB PO SCH ×2 (09:16→17:02)
[2019-02-20] MEDS: ATORVASTATIN 20 MG TAB PO SCH (09:16)
[2019-02-20] MEDS: SENOKOT S TAB PO SCH ×2 (09:17→20:16)
[2019-02-20] MEDS: ACETAMINOPHEN 500 MG TAB PO SCH ×3 (09:17→20:16)
[2019-02-20] MEDS: SITagliptin 50 MG TAB (JANUVIA) PO SCH (12:45)
--- NOTE | 2019-02-20 13:45 | IPNPDOC ---
Subjective Date Seen The patient was seen on 02/20/19. Subjective Chief Complaint/HPI Patient is a 73-year-old male, past medical history significant for diabetes mellitus, CLL, HTN, BPH who fell while doing heavy lifting onto his right side and presented to [facility] where imaging showed a right hip fracture. He underwent a total hip replacement without complication Events since last encounter Feels much better today, has no complaints, denies chest pain, denies shortness of breath. Reports intermittent occasional pain to sacreal area but otherwise, feels fine Objective Physical Examination General Exam: Positive: Alert, Cooperative, No Acute Distress Eye Exam: Positive: PERRLA, EOMI ENT Exam: Positive: Atraumatic, Mucous membr. moist/pink Neck Exam: Positive: Supple; Negative: JVD, thyromegaly Chest Exam: Positive: Clear to auscultation, Normal air movement Heart Exam: Positive: Rate Normal, Regular Rhythm, Irregular Rhythm, Normal S1, Normal S2, Other (ectopic beats) Telemetry: Positive: PACs Abdomen Exam: Positive: Normal bowel sounds, Soft Extremity Exam: Positive: Edema Skin Exam: Negative: Breakdown Neuro Exam: Positive: Normal Speech Psych Exam: Positive: Mental status NL, Mood NL, Oriented x 3; Negative: Anxiety A-FIB/CHADSVASC A-FIB History Current/History of A-Fib/PAF?: No Current Oral Anticoagulant The: No Treatment Treatment ordered: Rivaroxaban Assessment /Plan Problems (1) HTN (hypertension) Status: Chronic Response to Treatment: Stable Problem Text: -controlled -continue current management. -episodes of orthostatic Bp resolved with dosing of flomax at night (2) Hip fracture, right Status: Acute Problem Text: -S/P ORIF right hip -rehab management by primary team (3) DM (diabetes mellitus) Status: Chronic Problem Text: -continue levemir and glyburide -HgbA1C elevated -ACHS glucose monitoring (4) CLL (chronic lymphocytic leukemia) Status: Chronic Problem Text: -no sign of remission -O/P follow up with oncology (5) HLD (hyperlipidemia) Status: Chronic Response to Treatment: Stable (6) BPH (benign prostatic hyperplasia) Status: Chronic Problem Text: -patient still has significant post void residual >100ml -S/P branch placement and removal for retention -discussed with Urology who would like to see him as outpatient after discharge -again discussed with patient this am and he plans to follow up--(Dr Flores) Plan/VTE VTE Prophylaxis Ordered?: Yes VS, I&O, 24H, Fishbone Vital Signs/I&O Vital Signs Date Time Temp Pulse Resp B/P (MAP) Pulse Ox O2 Delivery O2 Flow Rate FiO2 02/20/19 10:00 18 02/20/19 06:00 97.5 81 130/80 (97) 99 I&O- Last 24 Hours up to 6 AM 02/20/19 06:00 Intake Total 1315 ml Output Total 3750 ml Balance -2435 ml Laboratory Data 24H LABS Laboratory Tests 2 02/19/19 16:59: Bedside Glucose (Misc Panel) 228H 02/19/19 20:10: Bedside Glucose (Misc Panel) 257H 02/20/19 06:17: White Blood Count 13.5H, Red Blood Count 2.78L, Hemoglobin 9.4L, Hematocrit 28.9L, Mean Corpuscular Volume 104.0H, Mean Corpuscular Hemoglobin 33.8H, Mean Corpuscular Hemoglobin Concent 32.5, Red Cell Distribution Width 13.0, Platelet Count 623H, Lymphocytes # (Auto) , Nucleated Red Blood Cells % (auto) 0.0, Neutrophils 19L, Lymphocytes (Manual) 75H, Monocytes (Manual) 2, Basophils (Manual) 1, Atypical Lymphocytes 3, Platelet Estimate INCREASED, Polychromasia 1+, Anion Gap 6L, Glomerular Filtration Rate > 60.0, Blood Urea Nitrogen 13, Creatinine 0.54L, Sodium Level 138, Potassium Level 4.0, Chloride Level 104, Carbon Dioxide Level 28, Calcium Level 7.8L 02/20/19 11:46: Bedside Glucose (Misc Panel) 226H CBC/BMP Laboratory Tests 02/20/19 06:17 Red Blood Count 2.78 L, Mean Corpuscular Volume 104.0 H, Mean Corpuscular Hemoglobin 33.8 H, Mean Corpuscular Hemoglobin Concent 32.5, Red Cell Distribution Width 13.0, Lymphocytes # (Auto) , Calcium Level 7.8 L Microbiology Microbiology 02/13/19 Stool Occult Blood (ALINA) - Final, Complete SIL MIMS February 20, 2019 13:45
[2019-02-20 14:00] VITALS: BP 144/77
--- NOTE | 2019-02-20 15:49 | IPNPDOC ---
PM&R Progress Note DATE OF SERVICE: February 20, 2019 [employer] Progress Note Subjective: Patient reports he has changed his mind and will go home with his daughter Pasc[place] in [facility]. REVIEW OF SYSTEMS: The following is a completed review of systems and has been reviewed. Review of systems otherwise unremarkable. PAIN: Patient self reports no right hip pain EYES: Negative for recent vision changes EARS, NOSE, & THROAT: denies throat pain, does endorse hx of pain with swallowing due to GERD CARDIOVASCULAR: denies chest pain or palpitations PULMONARY: Negative. Denies shortness of breath GASTROINTESTINAL: Negative for diarrhea or constipation GENITOURINARY: +burning with urination (improved) MUSCULOSKELETAL: bilateral LE weakness NEUROLOGICAL: +peripheral neuropathy HEMATOLOGICAL:+ CLL SKIN: right hip incision PSYCHIATRIC: Unremarkable All other review of systems found to be negative. PHYSICAL EXAMINATION: VITAL SIGNS: Please see below. GENERAL: Pleasant and cooperative. No acute distress. HEENT: PERRL. Extraocular movements intact. Clear conjunctiva CARDIOVASCULAR: Regular rate and rhythm. No murmurs, rubs, or gallops LUNGS: Clear to auscultation bilaterally. No wheezes. No rhonchi ABDOMEN: Soft, nontender, nondistended. Positive bowel sounds. Normal active bowel sounds NEUROLOGICAL: Alert and oriented times three. Cranial nerves II through XII grossly intact. Sensation diminished to light touch in LE in stocking pattern, proprioception intact EXTREMITIES:5\5 strength bilateral upper extremities. 5\5 strength right ankle DF and EHL (exam limited due to recent surgery).5/5 strength in left lower extremity. SKIN: right hip incision without induration c/d/i ASSESSMENT:73-year-old M with past medical history of CLL who presents status post fall with hip fracture s/p THR PLAN: 1. rehab: PT/OT, assess for DME needs, able to ambulate with RW and negotiate stairs 2. ortho s/p fall with right femure fracture, per ost-op radiology records s/p total hip arthroplasty- hip precautions- ortho consulted 3. Neuro: +diabetic neuropathy c/u gabapentin 4. Cardiac: pmh HTN c/u home meds- medicine consulted 5. Endo: poorly controlled DM, c/u ISS, glyburide 10mg BID and long active levemir at night- adjust prn, consistent carb diet-medicine recs appreciated 6. GI: pmh GERD, c/u protonix 7. DVT ppx: xarelto, teds 8. : pmh BPH with retention, branch placed over the weekend, c/u lower gabapentin dosing, f d/c'ed c/u Flomax qHS for outlet obstruction, holding am dose for episodes of dizziness on 02/19/19-improving 9, Heme: pmh CLL with chronic leukocytosis- monitor -post-op anemia, FOBT negative 10. Pain: will d/c tramadol and monitor- c/u standing Tylenol 10. Dispo: 02/27/19 to home or with family Allergies Coded Allergies: No Known Allergies (Unverified , 02/07/19) Vital Signs Vital Signs Date Time Temp Pulse Resp B/P (MAP) Pulse Ox O2 Delivery O2 Flow Rate FiO2 02/20/19 10:00 18 02/20/19 06:00 97.5 81 130/80 (97) 99 Laboratory Data CBC/BMP Laboratory Tests 02/20/19 06:17 Red Blood Count 2.78 L, Mean Corpuscular Volume 104.0 H, Mean Corpuscular Hemoglobin 33.8 H, Mean Corpuscular Hemoglobin Concent 32.5, Red Cell Distribution Width 13.0, Lymphocytes # (Auto) , Calcium Level 7.8 L Labs 24H Laboratory Tests 2 02/19/19 16:59: Bedside Glucose (Misc Panel) 228H 02/19/19 20:10: Bedside Glucose (Misc Panel) 257H 02/20/19 06:17: White Blood Count 13.5H, Red Blood Count 2.78L, Hemoglobin 9.4L, Hematocrit 28.9L, Mean Corpuscular Volume 104.0H, Mean Corpuscular Hemoglobin 33.8H, Mean Corpuscular Hemoglobin Concent 32.5, Red Cell Distribution Width 13.0, Platelet Count 623H, Lymphocytes # (Auto) , Nucleated Red Blood Cells % (auto) 0.0, Neutrophils 19L, Lymphocytes (Manual) 75H, Monocytes (Manual) 2, Basophils (Manual) 1, Atypical Lymphocytes 3, Platelet Estimate INCREASED, Polychromasia 1+, Anion Gap 6L, Glomerular Filtration Rate > 60.0, Blood Urea Nitrogen 13, Creatinine 0.54L, Sodium Level 138, Potassium Level 4.0, Chloride Level 104, Carbon Dioxide Level 28, Calcium Level 7.8L 02/20/19 11:46: Bedside Glucose (Misc Panel) 226H Microbiology Microbiology 02/13/19 Stool Occult Blood (ALINA) - Final, Complete Current Medications Current Medications Current Medications Acetaminophen (Tylenol Tab) 650 mg DAILY PRN PO fever/pain; Start 02/09/19 at 15:15 Acetaminophen (Tylenol Tab) 1,000 mg TID PO Last administered on 02/20/19at 09:17; Start 02/09/19 at 16:00 Atorvastatin Calcium (Lipitor) 40 mg DAILY PO Last administered on 02/20/19at 09:16; Start 02/10/19 at 09:00 Bisacodyl (Dulcolax Suppository) 10 mg DAILYPRN PRN [place] CONSTIPATION; Start 02/09/19 at 15:15 Dextrose (Dextrose 50%) 25 ml ASDIRECTED PRN IV SEE LABEL COMMENTS; Start 02/09/19 at 15:15 Ferrous Gluconate (Fergon) 324 mg BID PO Last administered on 02/20/19at 09:16; Start 02/12/19 at 09:00 Gabapentin (Neurontin) 100 mg BID@0900,1600 PO Last administered on 02/19/19at 09:26; Start 02/12/19 at 16:00; Stop 02/19/19 at 15:15; Status DC Gabapentin (Neurontin) 300 mg BID@0900,1600 PO Last administered on 02/12/19at 08:22; Start 02/09/19 at 16:00; Stop 02/12/19 at 10:11; Status DC Gabapentin (Neurontin) 300 mg QHS PO Last administered on 02/14/19at 22:01; Start 02/12/19 at 21:00; Stop 02/15/19 at 09:31; Status DC Gabapentin (Neurontin) 300 mg QHS@2000 PO Last administered on 02/19/19 20:23; Start 02/15/19 at 20:00 Gabapentin (Neurontin) 600 mg QHS PO Last administered on 02/11/19at 21:10; Start 02/09/19 at 21:00; Stop 02/12/19 at 10:11; Status DC Glucagon (Glucagon) 1 mg ASDIRECTED PRN SC SEE LABEL COMMENTS; Start 02/09/19 at 15:15 Glucose (Glucose) 16 GM ASDIRECTED PRN PO SEE LABEL COMMENTS; Start 02/09/19 at 15:15 Glyburide (Diabeta, Micronase) 5 mg BID@0730,1730 PO Last administered on 09:26; Start 02/11/19 at 17:30; Stop 02/19/19 at 10:43; Status DC Glyburide (Diabeta, Micronase) 10 mg BID@0730,1730 PO Last administered on 02/20/19at 09:16; Start 02/19/19 at 17:30 Glyburide (Diabeta, Micronase) 10 mg BID@0730,1730 PO Last administered on 02/11/19at 07:50; Start 02/09/19 at 17:30; Stop 02/11/19 at 12:05; Status DC Insulin Detemir (Levemir Insulin) 5 units QHS SC Last administered on 02/19/19at 20:24; Start 02/19/19 at 21:00; Stop 02/20/19 at 11:56; Status DC Insulin Detemir (Levemir Insulin) 10 units QHS SC Last administered on 02/15/19at 21:55; Start 02/09/19 at 21:00; Stop 02/16/19 at 07:58; Status DC Insulin Detemir (Levemir Insulin) 12 units QHS SC Last administered on 02/18/19at 20:21; Start 02/16/19 at 21:00; Stop 02/19/19 at 10:43; Status DC Insulin Human Lispro (HumaLOG INSULIN) SEE PROTOCOL TABLE AC SC Last administered on 02/20/19at 12:46; Start 02/09/19 at 17:30 Insulin Human Lispro (HumaLOG INSULIN) SEE PROTOCOL TABLE QHS SC Last administered on 02/19/19at 20:25; Start 02/09/19 at 21:00 Ondansetron HCl (Zofran) 4 mg Q6HP PRN PO NAUSEA; Start 02/09/19 at 15:15; Stop 02/12/19 at 10:11; Status DC Oxycodone HCl (Roxicodone, Oxyir) 5 mg Q4HP PRN PO PAIN Last administered on 02/10/19at 05:57; Start 02/09/19 at 15:15; Stop 02/12/19 at 10:11; Status DC Oxycodone HCl (Roxicodone, Oxyir) 10 mg Q4HP PRN PO SEVERE PAIN (PS 8-10); Start 02/09/19 at 15:15; Stop 02/09/19 at 16:50; Status DC Pantoprazole Sodium (Protonix) 40 mg DAILY PO Last administered on 02/20/19 09:16; Start 02/09/19 at 09:00 Rivaroxaban (Xarelto) 10 mg DAILY@1800 PO Last administered on 02/19/19 17:07; Start 02/09/19 at 18:00; Stop 03/13/19 at 17:59 Senna/Docusate Sodium (Senokot S) 1 tab BID PO Last administered on 02/20/19 09:17; Start 02/09/19 at 21:00 Sitagliptin Phosphate (Januvia) 50 mg DAILY@0800 PO Last administered on 02/20/19 12:45; Start 02/20/19 at 08:00 Sitagliptin Phosphate (Januvia) 100 mg DAILY PO ; Start 02/20/19 at 09:00; Stop 02/20/19 at 12:01; Status DC Tamsulosin HCl (Flomax) 0.4 mg BID PO Last administered on 02/18/19 20:22; Start 02/12/19 at 21:00; Stop 02/19/19 at 11:54; Status DC Tamsulosin HCl (Flomax) 0.4 mg DAILY PO Last administered on 02/12/19 08:23; Start 02/10/19 at 10:15; Stop 02/12/19 at 11:48; Status DC Tamsulosin HCl (Flomax) 0.4 mg QHS PO Last administered on 02/19/19 20:23; Start 02/19/19 at 21:00 Tramadol HCl (Ultram) 25 mg Q6HP PRN PO MODERATE PAIN (PS 5-7) Last administered on 02/20/19 09:18; Start 02/19/19 at 10:30; Stop 02/20/19 at 11:57; Status DC Tramadol HCl (Ultram) 50 mg Q6HP PRN PO MODERATE PAIN (PS 5-7) Last administered on 5/13/19at 06:07; Start 02/13/19 at 11:30; Stop 02/19/19 at 10:16; Status DC A-FIB/CHADSVASC A-FIB History Current/History of A-Fib/PAF?: No GALILEO DUFF MD February 20, 2019 15:49
[2019-02-20] MEDS: RIVAROXABAN 10 MG TAB (XARELTO) PO SCH (17:17)
[2019-02-20 20:00] VITALS: BP 131/63
[2019-02-20] MEDS: GABAPENTIN 300 MG CAP PO SCH (20:15)
[2019-02-20] MEDS: TAMSULOSIN 0.4 MG CAP PO SCH (20:16)
[2019-02-21 06:00] VITALS: BP 160/76
[2019-02-21] MEDS: HumaLOG INSULIN (NovoLOG) PER UNIT SC SCH ×4 (07:48→20:09)
[2019-02-21] MEDS: ATORVASTATIN 20 MG TAB PO SCH (07:48)
[2019-02-21] MEDS: SENOKOT S TAB PO SCH ×2 (07:48→20:29)
[2019-02-21] MEDS: ACETAMINOPHEN 500 MG TAB PO SCH ×3 (07:48→20:29)
[2019-02-21] MEDS: glyBURIDE 2.5 MG TAB PO SCH ×2 (07:48→17:16)
[2019-02-21] MEDS: FERROUS GLUCONATE 324 MG TAB PO SCH ×2 (07:48→20:30)
[2019-02-21] MEDS: SITagliptin 50 MG TAB (JANUVIA) PO SCH (07:48)
[2019-02-21] MEDS: PANTOPRAZOLE 40MG TAB (PROTONIX) PO SCH (07:48)
[2019-02-21 14:00] VITALS: BP 159/68
[2019-02-21] MEDS: METOPROLOL SUCC *XL* 12.5MG PER 1/2 TAB (TopROL *XL*) PO SCH (14:59)
[2019-02-21] MEDS: RIVAROXABAN 10 MG TAB (XARELTO) PO SCH (17:16)
[2019-02-21 20:00] VITALS: BP 132/72
[2019-02-21] MEDS: GABAPENTIN 300 MG CAP PO SCH (20:30)
[2019-02-21] MEDS: TAMSULOSIN 0.4 MG CAP PO SCH (20:30)
[2019-02-22 06:00] VITALS: BP 140/74
[2019-02-22] MEDS: TAMSULOSIN 0.4 MG CAP PO SCH ×2 (08:26→21:25)
[2019-02-22] MEDS: SENOKOT S TAB PO SCH (08:26)
[2019-02-22] MEDS: HumaLOG INSULIN (NovoLOG) PER UNIT SC SCH ×4 (08:26→21:33)
[2019-02-22] MEDS: METOPROLOL SUCC *XL* 12.5MG PER 1/2 TAB (TopROL *XL*) PO SCH (08:27)
[2019-02-22] MEDS: ATORVASTATIN 20 MG TAB PO SCH (08:27)
[2019-02-22] MEDS: SITagliptin 50 MG TAB (JANUVIA) PO SCH (08:27)
[2019-02-22] MEDS: PANTOPRAZOLE 40MG TAB (PROTONIX) PO SCH (08:27)
[2019-02-22] MEDS: ACETAMINOPHEN 500 MG TAB PO SCH ×3 (08:28→21:26)
[2019-02-22] MEDS: FERROUS GLUCONATE 324 MG TAB PO SCH ×2 (08:28→21:25)
[2019-02-22] MEDS: glyBURIDE 2.5 MG TAB PO SCH ×2 (08:28→17:27)
--- NOTE | 2019-02-22 10:03 | IPNPDOC ---
PM&R Progress Note DATE OF SERVICE: February 22, 2019 [employer] Progress Note Subjective: Patient says his stye feels better and that he is not dizzy with the adjustments with his medication. REVIEW OF SYSTEMS: The following is a completed review of systems and has been reviewed. Review of systems otherwise unremarkable. PAIN: Patient self reports no right hip pain EYES: Negative for recent vision changes EARS, NOSE, & THROAT: denies throat pain, does endorse hx of pain with swallowing due to GERD CARDIOVASCULAR: denies chest pain or palpitations PULMONARY: Negative. Denies shortness of breath GASTROINTESTINAL: Negative for diarrhea or constipation GENITOURINARY: +burning with urination (improved) MUSCULOSKELETAL: bilateral LE weakness NEUROLOGICAL: +peripheral neuropathy HEMATOLOGICAL:+ CLL SKIN: right hip incision PSYCHIATRIC: Unremarkable All other review of systems found to be negative. PHYSICAL EXAMINATION: VITAL SIGNS: Please see below. GENERAL: Pleasant and cooperative. No acute distress. HEENT: PERRL. Extraocular movements intact. Clear conjunctiva CARDIOVASCULAR: Regular rate and rhythm. No murmurs, rubs, or gallops LUNGS: Clear to auscultation bilaterally. No wheezes. No rhonchi ABDOMEN: Soft, nontender, nondistended. Positive bowel sounds. Normal active bowel sounds NEUROLOGICAL: Alert and oriented times three. Cranial nerves II through XII grossly intact. Sensation diminished to light touch in LE in stocking pattern, proprioception intact EXTREMITIES:5\5 strength bilateral upper extremities. 5\5 strength right ankle DF and EHL (exam limited due to recent surgery).5/5 strength in left lower extremity. SKIN: right hip incision without induration c/d/i, right upper eyelid with mild swelling and erythema ASSESSMENT:73-year-old M with past medical history of CLL who presents status post fall with hip fracture s/p THR PLAN: 1. rehab: PT/OT, assess for DME needs, able to ambulate further with RW and negotiate stairs, approaching Mod-I in both disciplines 2. ortho s/p fall with right femur fracture, per ost-op radiology records s/p total hip arthroplasty- hip precautions- ortho consulted 3. Neuro: +diabetic neuropathy c/u gabapentin 4. Cardiac: pmh HTN c/u home meds- medicine consulted - EKG shows premature ventricular complexes, elevated BPs on rehab, c/u low dose beta-ewa and monitor 5. Endo: poorly controlled DM, c/u ISS, glyburide 10mg BID and added back home Januvia, levemir on hold, consistent carb diet-medicine recs appreciated 6. GI: pmh GERD, c/u protonix 7. DVT ppx: xareledyta teds 8. : pmh BPH with retention, branch placed over the weekend, c/u lower gabapen tin dosing, f d/c'ed c/u Flomax qHS for outlet obstruction, c/u am dose and monitor for dizziness- stable thus far 9, Heme: pmh CLL with chronic leukocytosis- monitor -post-op anemia, FOBT negative 10. Pain: d/c'ed tramadol and monitor- c/u standing Tylenol 11. Skin: right eye stye- apply warm moist compresses-improving 10. Dispo: 02/27/19 to his daughter's house in [facility] Allergies Coded Allergies: No Known Allergies (Unverified , 02/07/19) Vital Signs Vital Signs Date Time Temp Pulse Resp B/P (MAP) Pulse Ox O2 Delivery O2 Flow Rate FiO2 02/22/19 08:27 73 128/73 02/22/19 06:00 98.9 17 98 Laboratory Data Labs 24H Laboratory Tests 2 02/21/19 11:33: Bedside Glucose (Misc Panel) 165H 02/21/19 16:27: Bedside Glucose (Misc Panel) 221H 02/21/19 19:38: Bedside Glucose (Misc Panel) 183H 02/22/19 06:16: Bedside Glucose (Misc Panel) 150H Microbiology Microbiology 02/13/19 Stool Occult Blood (ALINA) - Final, Complete Current Medications Current Medications Current Medications Acetaminophen (Tylenol Tab) 650 mg DAILY PRN PO fever/pain; Start 02/09/19 at 15:15 Acetaminophen (Tylenol Tab) 1,000 mg TID PO Last administered on 02/22/19at 08:28; Start 02/09/19 at 16:00 Atorvastatin Calcium (Lipitor) 40 mg DAILY PO Last administered on 02/22/19at 08:27; Start 02/10/19 at 09:00 Bisacodyl (Dulcolax Suppository) 10 mg DAILYPRN PRN [place] CONSTIPATION; Start 02/09/19 at 15:15 Dextrose (Dextrose 50%) 25 ml ASDIRECTED PRN IV SEE LABEL COMMENTS; Start 02/09/19 at 15:15 Ferrous Gluconate (Fergon) 324 mg BID PO Last administered on 02/22/19at 08:28; Start 02/12/19 at 09:00 Gabapentin (Neurontin) 100 mg BID@0900,1600 PO Last administered on 02/19/19 09:26; Start 02/12/19 at 16:00; Stop 02/19/19 at 15:15; Status DC Gabapentin (Neurontin) 300 mg BID@0900,1600 PO Last administered on 02/12/19at 08:22; Start 02/09/19 at 16:00; Stop 02/12/19 at 10:11; Status DC Gabapentin (Neurontin) 300 mg QHS PO Last administered on 02/14/19at 22:01; Start 02/12/19 at 21:00; Stop 02/15/19 at 09:31; Status DC Gabapentin (Neurontin) 300 mg QHS@2000 PO Last administered on 02/21/19at 20:30; Start 02/15/19 at 20:00 Gabapentin (Neurontin) 600 mg QHS PO Last administered on 02/11/19at 21:10; Start 02/09/19 at 21:00; Stop 02/12/19 at 10:11; Status DC Glucagon (Glucagon) 1 mg ASDIRECTED PRN SC SEE LABEL COMMENTS; Start 02/09/19 at 15:15 Glucose (Glucose) 16 GM ASDIRECTED PRN PO SEE LABEL COMMENTS; Start 02/09/19 at 15:15 Glyburide (Diabeta, Micronase) 5 mg BID@0730,1730 PO Last administered on 02/19/19at 09:26; Start 02/11/19 at 17:30; Stop 02/19/19 at 10:43; Status DC Glyburide (Diabeta, Micronase) 10 mg BID@0730,1730 PO Last administered on 02/22/19 08:28; Start 02/19/19 at 17:30 Glyburide (Diabeta, Micronase) 10 mg BID@0730,1730 PO Last administered on 02/11/19at 07:50; Start 02/09/19 at 17:30; Stop 02/11/19 at 12:05; Status DC Insulin Detemir (Levemir Insulin) 5 units QHS SC Last administered on 02/19/19 20:24; Start 02/19/19 at 21:00; Stop 02/20/19 at 11:56; Status DC Insulin Detemir (Levemir Insulin) 10 units QHS SC Last administered on 02/15/19 21:55; Start 02/09/19 at 21:00; Stop 02/16/19 at 07:58; Status DC Insulin Detemir (Levemir Insulin) 12 units QHS SC Last administered on 02/18/19at 20:21; Start 02/16/19 at 21:00; Stop 02/19/19 at 10:43; Status DC Insulin Human Lispro (HumaLOG INSULIN) SEE PROTOCOL TABLE AC SC Last administered on 02/22/19 08:26; Start 02/09/19 at 17:30 Insulin Human Lispro (HumaLOG INSULIN) SEE PROTOCOL TABLE QHS SC Last administered on 02/20/19at 20:17; Start 02/09/19 at 21:00 Metoprolol Succinate (TopROL XL) 12.5 mg DAILY PO Last administered on 02/22/19at 08:27; Start 02/21/19 at 11:00 Ondansetron HCl (Zofran) 4 mg Q6HP PRN PO NAUSEA; Start 02/09/19 at 15:15; Stop 02/12/19 at 10:11; Status DC Oxycodone HCl (Roxicodone, Oxyir) 5 mg Q4HP PRN PO PAIN Last administered on 02/10/19at 05:57; Start 02/09/19 at 15:15; Stop 02/12/19 at 10:11; Status DC Oxycodone HCl (Roxicodone, Oxyir) 10 mg Q4HP PRN PO SEVERE PAIN (PS 8-10); Start 02/09/19 at 15:15; Stop 02/09/19 at 16:50; Status DC Pantoprazole Sodium (Protonix) 40 mg DAILY PO Last administered on 02/22/19at 08:27; Start 02/09/19 at 09:00 Rivaroxaban (Xarelto) 10 mg DAILY@1800 PO Last administered on 02/21/19at 17:16; Start 02/09/19 at 18:00; Stop 03/13/19 at 17:59 Senna/Docusate Sodium (Senokot S) 1 tab BID PO Last administered on 02/22/19 08:26; Start 02/09/19 at 21:00 Sitagliptin Phosphate (Januvia) 50 mg DAILY@0800 PO Last administered on 02/21/19at 07:48; Start 02/20/19 at 08:00; Stop 02/21/19 at 09:44; Status DC Sitagliptin Phosphate (Januvia) 100 mg DAILY PO ; Start 02/20/19 at 09:00; Stop 02/20/19 at 12:01; Status DC Sitagliptin Phosphate (Januvia) 100 mg DAILY@0800 PO Last administered on 02/22/19at 08:27; Start 02/22/19 at 08:00 Tamsulosin HCl (Flomax) 0.4 mg BID PO Last administered on 02/22/19 08:26; Start 02/21/19 at 21:00 Tamsulosin HCl (Flomax) 0.4 mg BID PO Last administered on 02/18/19at 20:22; Start 02/12/19 at 21:00; Stop 02/19/19 at 11:54; Status DC Tamsulosin HCl (Flomax) 0.4 mg DAILY PO Last administered on 02/12/19at 08:23; Start 02/10/19 at 10:15; Stop 02/12/19 at 11:48; Status DC Tamsulosin HCl (Flomax) 0.4 mg QHS PO Last administered on 02/20/19at 20:16; Start 02/19/19 at 21:00; Stop 02/21/19 at 17:07; Status DC Tramadol HCl (Ultram) 25 mg Q6HP PRN PO MODERATE PAIN (PS 5-7) Last administered on 02/20/19 09:18; Start 02/19/19 at 10:30; Stop 02/20/19 at 11:57; Status DC Tramadol HCl (Ultram) 50 mg Q6HP PRN PO MODERATE PAIN (PS 5-7) Last administered on 02/19/19 06:07; Start 02/13/19 at 11:30; Stop 02/19/19 at 10:16; Status DC A-FIB/CHADSVASC A-FIB History Current/History of A-Fib/PAF?: No GALILEO DUFF MD February 22, 2019 10:03
--- NOTE | 2019-02-22 10:03 | IPNPDOC ---
PM&R Progress Note DATE OF SERVICE: February 21, 2019 Type Copyist Progress Note Subjective: Patient says he has developed swelling on his right upper eyelid, otherwise he reports feeling strong and denies any dizziness. REVIEW OF SYSTEMS: The following is a completed review of systems and has been reviewed. Review of systems otherwise unremarkable. PAIN: Patient self reports no right hip pain EYES: Negative for recent vision changes EARS, NOSE, & THROAT: denies throat pain, does endorse hx of pain with swallowing due to GERD CARDIOVASCULAR: denies chest pain or palpitations PULMONARY: Negative. Denies shortness of breath GASTROINTESTINAL: Negative for diarrhea or constipation GENITOURINARY: +burning with urination (improved) MUSCULOSKELETAL: bilateral LE weakness NEUROLOGICAL: +peripheral neuropathy HEMATOLOGICAL:+ CLL SKIN: right hip incision PSYCHIATRIC: Unremarkable All other review of systems found to be negative. PHYSICAL EXAMINATION: VITAL SIGNS: Please see below. GENERAL: Pleasant and cooperative. No acute distress. HEENT: PERRL. Extraocular movements intact. Clear conjunctiva CARDIOVASCULAR: Regular rate and rhythm. No murmurs, rubs, or gallops LUNGS: Clear to auscultation bilaterally. No wheezes. No rhonchi ABDOMEN: Soft, nontender, nondistended. Positive bowel sounds. Normal active bowel sounds NEUROLOGICAL: Alert and oriented times three. Cranial nerves II through XII grossly intact. Sensation diminished to light touch in LE in stocking pattern, proprioception intact EXTREMITIES:5\5 strength bilateral upper extremities. 5\5 strength right ankle DF and EHL (exam limited due to recent surgery).5/5 strength in left lower extremity. SKIN: right hip incision without induration c/d/i ASSESSMENT:73-year-old M with past medical history of CLL who presents status post fall with hip fracture s/p THR PLAN: 1. rehab: PT/OT, assess for DME needs, able to ambulate further with RW and negotiate stairs 2. ortho s/p fall with right femur fracture, per ost-op radiology records s/p total hip arthroplasty- hip precautions- ortho consulted 3. Neuro: +diabetic neuropathy c/u gabapentin 4. Cardiac: pmh HTN c/u home meds- medicine consulted - EKG shows premature ventricular complexes, elevated BPs on rehab, will start low dose beta-ewa and monitor 5. Endo: poorly controlled DM, c/u ISS, glyburide 10mg BID and added back home Januvia, levemir on hold, consistent carb diet-medicine recs appreciated 6. GI: pmh GERD, c/u protonix 7. DVT ppx: kana streeter 8. : pmh BPH with retention, branch placed over the weekend, c/u lower gabapentin dosing, f d/c'ed c/u Flomax qHS for outlet obstruction, will restart am dose and monitor for dizziness 9, Heme: pmh CLL with chronic leukocytosis- monitor -post-op anemia, FOBT negative 10. Pain: d/c'ed tramadol and monitor- c/u standing Tylenol 11. Skin: right eye stye- apply warm moist compresses 10. Dispo: 02/27/19 to home or with family Allergies Coded Allergies: No Known Allergies (Unverified , 02/07/19) Vital Signs Vital Signs Date Time Temp Pulse Resp B/P (MAP) Pulse Ox O2 Delivery O2 Flow Rate FiO2 02/22/19 08:27 73 128/73 02/22/19 06:00 98.9 17 98 Laboratory Data Labs 24H Laboratory Tests 2 02/21/19 11:33: Bedside Glucose (Misc Panel) 165H 02/21/19 16:27: Bedside Glucose (Misc Panel) 221H 02/21/19 19:38: Bedside Glucose (Misc Panel) 183H 02/22/19 06:16: Bedside Glucose (Misc Panel) 150H Microbiology Microbiology 02/13/19 Stool Occult Blood (ALINA) - Final, Complete Current Medications Current Medications Current Medications Acetaminophen (Tylenol Tab) 650 mg DAILY PRN PO fever/pain; Start 02/09/19 at 15:15 Acetaminophen (Tylenol Tab) 1,000 mg TID PO Last administered on 02/22/19at 08:28; Start 02/09/19 at 16:00 Atorvastatin Calcium (Lipitor) 40 mg DAILY PO Last administered on 02/22/19at 08:27; Start 02/10/19 at 09:00 Bisacodyl (Dulcolax Suppository) 10 mg DAILYPRN PRN [place] CONSTIPATION; Start 02/09/19 at 15:15 Dextrose (Dextrose 50%) 25 ml ASDIRECTED PRN IV SEE LABEL COMMENTS; Start 02/09/19 at 15:15 Ferrous Gluconate (Fergon) 324 mg BID PO Last administered on 02/22/19 08:28; Start 02/12/19 at 09:00 Gabapentin (Neurontin) 100 mg BID@0900,1600 PO Last administered on 02/19/19 09:26; Start 02/12/19 at 16:00; Stop 02/19/19 at 15:15; Status DC Gabapentin (Neurontin) 300 mg BID@0900,1600 PO Last administered on 02/12/19 08:22; Start 02/09/19 at 16:00; Stop 02/12/19 at 10:11; Status DC Gabapentin (Neurontin) 300 mg QHS PO Last administered on 02/14/19 22:01; Start 02/12/19 at 21:00; Stop 02/15/19 at 09:31; Status DC Gabapentin (Neurontin) 300 mg QHS@2000 PO Last administered on 02/21/19 20:30; Start 02/15/19 at 20:00 Gabapentin (Neurontin) 600 mg QHS PO Last administered on 02/11/19 21:10; Start 02/09/19 at 21:00; Stop 02/12/19 at 10:11; Status DC Glucagon (Glucagon) 1 mg ASDIRECTED PRN SC SEE LABEL COMMENTS; Start 02/09/19 at 15:15 Glucose (Glucose) 16 GM ASDIRECTED PRN PO SEE LABEL COMMENTS; Start 02/09/19 at 15:15 Glyburide (Diabeta, Micronase) 5 mg BID@0730,1730 PO Last administered on 02/19/19 09:26; Start 02/11/19 at 17:30; Stop 02/19/19 at 10:43; Status DC Glyburide (Diabeta, Micronase) 10 mg BID@0730,1730 PO Last administered on 02/22/19 08:28; Start 02/19/19 at 17:30 Glyburide (Diabeta, Micronase) 10 mg BID@0730,1730 PO Last administered on 02/11/19 07:50; Start 02/09/19 at 17:30; Stop 02/11/19 at 12:05; Status DC Insulin Detemir (Levemir Insulin) 5 units QHS SC Last administered on 02/19/19at 20:24; Start 02/19/19 at 21:00; Stop 02/20/19 at 11:56; Status DC Insulin Detemir (Levemir Insulin) 10 units QHS SC Last administered on 02/15/19at 21:55; Start 02/09/19 at 21:00; Stop 02/16/19 at 07:58; Status DC Insulin Detemir (Levemir Insulin) 12 units QHS SC Last administered on 02/18/19at 20:21; Start 02/16/19 at 21:00; Stop 02/19/19 at 10:43; Status DC Insulin Human Lispro (HumaLOG INSULIN) SEE PROTOCOL TABLE AC SC Last administered on 02/22/19at 08:26; Start 02/09/19 at 17:30 Insulin Human Lispro (HumaLOG INSULIN) SEE PROTOCOL TABLE QHS SC Last administered on 02/20/19at 20:17; Start 02/09/19 at 21:00 Metoprolol Succinate (TopROL XL) 12.5 mg DAILY PO Last administered on 02/22/19at 08:27; Start 02/21/19 at 11:00 Ondansetron HCl (Zofran) 4 mg Q6HP PRN PO NAUSEA; Start 02/09/19 at 15:15; Stop 02/12/19 at 10:11; Status DC Oxycodone HCl (Roxicodone, Oxyir) 5 mg Q4HP PRN PO PAIN Last administered on 02/10/19at 05:57; Start 02/09/19 at 15:15; Stop 02/12/19 at 10:11; Status DC Oxycodone HCl (Roxicodone, Oxyir) 10 mg Q4HP PRN PO SEVERE PAIN (PS 8-10); Start 02/09/19 at 15:15; Stop 02/09/19 at 16:50; Status DC Pantoprazole Sodium (Protonix) 40 mg DAILY PO Last administered on 02/22/19at 08:27; Start 02/09/19 at 09:00 Rivaroxaban (Xarelto) 10 mg DAILY@1800 PO Last administered on 02/21/19 17:16; Start 02/09/19 at 18:00; Stop 03/13/19 at 17:59 Senna/Docusate Sodium (Senokot S) 1 tab BID PO Last administered on 02/22/19 08:26; Start 02/09/19 at 21:00 Sitagliptin Phosphate (Januvia) 50 mg DAILY@0800 PO Last administered on 02/21/19 07:48; Start 02/20/19 at 08:00; Stop 02/21/19 at 09:44; Status DC Sitagliptin Phosphate (Januvia) 100 mg DAILY PO ; Start 02/20/19 at 09:00; Stop 02/20/19 at 12:01; Status DC Sitagliptin Phosphate (Januvia) 100 mg DAILY@0800 PO Last administered on 02/22/19 08:27; Start 02/22/19 at 08:00 Tamsulosin HCl (Flomax) 0.4 mg BID PO Last administered on 02/22/19 08:26; Start 02/21/19 at 21:00 Tamsulosin HCl (Flomax) 0.4 mg BID PO Last administered on 02/18/19 20:22; Start 02/12/19 at 21:00; Stop 02/19/19 at 11:54; Status DC Tamsulosin HCl (Flomax) 0.4 mg DAILY PO Last administered on 02/12/19 08:23; Start 02/10/19 at 10:15; Stop 02/12/19 at 11:48; Status DC Tamsulosin HCl (Flomax) 0.4 mg QHS PO Last administered on 02/20/19 20:16; Start 02/19/19 at 21:00; Stop 02/21/19 at 17:07; Status DC Tramadol HCl (Ultram) 25 mg Q6HP PRN PO MODERATE PAIN (PS 5-7) Last administered on 02/20/19 09:18; Start 02/19/19 at 10:30; Stop 02/20/19 at 11:57; Status DC Tramadol HCl (Ultram) 50 mg Q6HP PRN PO MODERATE PAIN (PS 5-7) Last administered on 02/19/19 06:07; Start 02/13/19 at 11:30; Stop 02/19/19 at 10:16; Status DC A-FIB/CHADSVASC A-FIB History Current/History of A-Fib/PAF?: No GALILEO DUFF MD February 22, 2019 10:03
[2019-02-22 14:00] VITALS: BP 135/70
[2019-02-22] MEDS ORDERED: BACLOFEN 5MG PER 1/2 TABLET PO PRN (16:30)
[2019-02-22] MEDS: RIVAROXABAN 10 MG TAB (XARELTO) PO SCH (17:27)
[2019-02-22 21:20] VITALS: BP 131/67
[2019-02-22] MEDS: GABAPENTIN 300 MG CAP PO SCH (21:25)
[2019-02-23 06:00] VITALS: BP 142/80
[2019-02-23 06:47] LABS: HEMATOCRIT 26.7 % (42.0-52.0); HEMOGLOBIN 8.7 g/dl (13.5-17.5); MEAN CORPUSCULAR HGB CONC 32.6 g/dl (32.0-36.5); MEAN CORPUSCULAR VOLUME 101.1 fl (80.0-96.0); PLATELET COUNT, AUTOMATED 656 10^3/uL (150-450); RED BLOOD COUNT 2.64 10^6/uL (4.30-6.10)
[2019-02-23 06:55] LABS: WHITE BLOOD COUNT 12.4 10^3/uL (4.0-10.0)
[2019-02-23 07:00] LABS: BLOOD UREA NITROGEN 15 MG/DL (7-18); CALCIUM LEVEL 8.4 MG/DL (8.8-10.2); CARBON DIOXIDE LEVEL 27 MEQ/L (21-32); CHLORIDE LEVEL 107 MEQ/L (98-107); CREATININE FOR GFR 0.65 MG/DL (0.70-1.30); GLOMERULAR FILTRATION RATE > 60.0 (>42); GLUCOSE, FASTING 184 MG/DL (70-100); POTASSIUM SERUM 3.7 MEQ/L (3.5-5.1); SODIUM LEVEL 140 MEQ/L (136-145)
[2019-02-23 07:08] LABS: EOSINOPHILS 1 % (0-5); LYMPHOCYTES 80 % (16-52); MONOCYTES 1 % (0-8); NEUTROPHILS 18 % (35-75)
[2019-02-23 07:09] LABS: ANISOCYTOSIS 2+; PLATELET ESTIMATE INCREASED (NORMAL)
[2019-02-23] MEDS: METOPROLOL SUCC *XL* 12.5MG PER 1/2 TAB (TopROL *XL*) PO SCH (08:30)
[2019-02-23] MEDS: PANTOPRAZOLE 40MG TAB (PROTONIX) PO SCH (08:31)
[2019-02-23] MEDS: ACETAMINOPHEN 500 MG TAB PO SCH ×3 (08:31→20:31)
[2019-02-23] MEDS: glyBURIDE 2.5 MG TAB PO SCH ×2 (08:31→18:28)
[2019-02-23] MEDS: SITagliptin 50 MG TAB (JANUVIA) PO SCH (08:31)
[2019-02-23] MEDS: TAMSULOSIN 0.4 MG CAP PO SCH ×2 (08:31→20:30)
[2019-02-23] MEDS: FERROUS GLUCONATE 324 MG TAB PO SCH ×2 (08:31→20:30)
[2019-02-23] MEDS: ATORVASTATIN 20 MG TAB PO SCH (08:31)
[2019-02-23] MEDS: HumaLOG INSULIN (NovoLOG) PER UNIT SC SCH ×4 (08:32→20:26)
--- NOTE | 2019-02-23 10:43 | IPNPDOC ---
PM&R Progress Note DATE OF SERVICE: February 23, 2019 Manager Council Progress Note Subjective: Patient says he is very happy with his care and would like to write a letter to administration on behalf of the unit. He reports minimal pain. REVIEW OF SYSTEMS: The following is a completed review of systems and has been reviewed. Review of systems otherwise unremarkable. PAIN: Patient self reports no right hip pain EYES: Negative for recent vision changes EARS, NOSE, & THROAT: denies throat pain, does endorse hx of pain with swallowing due to GERD CARDIOVASCULAR: denies chest pain or palpitations PULMONARY: Negative. Denies shortness of breath GASTROINTESTINAL: Negative for diarrhea or constipation GENITOURINARY: +burning with urination (improved) MUSCULOSKELETAL: bilateral LE weakness NEUROLOGICAL: +peripheral neuropathy HEMATOLOGICAL:+ CLL SKIN: right hip incision PSYCHIATRIC: Unremarkable All other review of systems found to be negative. PHYSICAL EXAMINATION: VITAL SIGNS: Please see below. GENERAL: Pleasant and cooperative. No acute distress. HEENT: PERRL. Extraocular movements intact. Clear conjunctiva CARDIOVASCULAR: Regular rate and rhythm. No murmurs, rubs, or gallops LUNGS: Clear to auscultation bilaterally. No wheezes. No rhonchi ABDOMEN: Soft, nontender, nondistended. Positive bowel sounds. Normal active bowel sounds NEUROLOGICAL: Alert and oriented times three. Cranial nerves II through XII grossly intact. Sensation diminished to light touch in LE in stocking pattern, proprioception intact EXTREMITIES:5\5 strength bilateral upper extremities. 5\5 strength right ankle DF and EHL (exam limited due to recent surgery).5/5 strength in left lower extremity. SKIN: right hip incision without induration c/d/i, right upper eyelid with mild swelling and erythema ASSESSMENT:73-year-old M with past medical history of CLL who presents status post fall with hip fracture s/p THR PLAN: 1. rehab: PT/OT, assess for DME needs, able to ambulate further with RW and negotiate stairs, approaching Mod-I in both disciplines 2. ortho s/p fall with right femur fracture, per ost-op radiology records s/p total hip arthroplasty- hip precautions- ortho consulted 3. Neuro: +diabetic neuropathy c/u gabapentin 4. Cardiac: pmh HTN c/u home meds- medicine consulted - EKG shows premature ventricular complexes, elevated BPs on rehab, c/u low dose beta-ewa and monitor 5. Endo: poorly controlled DM, c/u ISS, glyburide 10mg BID and added back home Januvia, levemir on hold, consistent carb diet-medicine recs appreciated 6. GI: pmh GERD, c/u protonix 7. DVT ppx: kana streeter 8. : pmh BPH with retention, c/u lower gabapentin dosing, f d/c'ed c/u Flomax BID for outlet obstruction, no daytime dizziness reported-will refer to outpatient urology 9, Heme: pmh CLL with chronic leukocytosis- monitor -post-op anemia, FOBT negative 10. Pain: d/c'ed tramadol and monitor- c/u standing Tylenol 11. Skin: right eye stye- apply warm moist compresses-improving 10. Dispo: 02/27/19 to his daughter's house in [facility] or back to his own home Allergies Coded Allergies: No Known Allergies (Unverified , 02/07/19) Vital Signs Vital Signs Date Time Temp Pulse Resp B/P (MAP) Pulse Ox O2 Delivery O2 Flow Rate FiO2 02/23/19 08:30 86 142/80 02/23/19 06:00 99.1 18 98 Laboratory Data CBC/BMP Laboratory Tests 02/23/19 06:28 Red Blood Count 2.64 L, Mean Corpuscular Volume 101.1 H, Mean Corpuscular Hemog lobin 33.0, Mean Corpuscular Hemoglobin Concent 32.6, Red Cell Distribution Width 13.2, Lymphocytes # (Auto) , Calcium Level 8.4 L Labs 24H Laboratory Tests 2 02/22/19 12:00: Bedside Glucose (Misc Panel) 167H 02/22/19 16:40: Bedside Glucose (Misc Panel) 211H 02/22/19 21:23: Bedside Glucose (Misc Panel) 302H 02/23/19 06:28: White Blood Count 12.4H, Red Blood Count 2.64L, Hemoglobin 8.7L, Hematocrit 26.7L, Mean Corpuscular Volume 101.1H, Mean Corpuscular Hemoglobin 33.0, Mean Corpuscular Hemoglobin Concent 32.6, Red Cell Distribution Width 13.2, Platelet Count 656H, Lymphocytes # (Auto) , Nucleated Red Blood Cells % (auto) 0.0, Neutrophils 18L, Lymphocytes (Manual) 80H, Monocytes (Manual) 1, Eosinophils (Manual) 1, Platelet Estimate INCREASED, Anisocytosis 2+, Anion Gap 6L, Glomerular Filtration Rate > 60.0, Blood Urea Nitrogen 15, Creatinine 0.65L, Sodium Level 140, Potassium Level 3.7, Chloride Level 107, Carbon Dioxide Level 27, Calcium Level 8.4L 02/23/19 06:42: Bedside Glucose (Misc Panel) 174H Microbiology Microbiology 02/13/19 Stool Occult Blood (ALINA) - Final, Complete Current Medications Current Medications Current Medications Acetaminophen (Tylenol Tab) 650 mg DAILY PRN PO fever/pain; Start 02/09/19 at 15:15 Acetaminophen (Tylenol Tab) 1,000 mg TID PO Last administered on 02/23/19at 08:31; Start 02/09/19 at 16:00 Atorvastatin Calcium (Lipitor) 40 mg DAILY PO Last administered on 02/23/19at 08:31; Start 02/10/19 at 09:00 Baclofen (Lioresal) 5 mg TID PRN PO SPASMS; Start 02/22/19 at 16:30 Bisacodyl (Dulcolax Suppository) 10 mg DAILYPRN PRN [place] CONSTIPATION; Start 02/09/19 at 15:15 Dextrose (Dextrose 50%) 25 ml ASDIRECTED PRN IV SEE LABEL COMMENTS; Start 02/09/19 at 15:15 Ferrous Gluconate (Fergon) 324 mg BID PO Last administered on 02/23/19at 08:31; Start 02/12/19 at 09:00 Gabapentin (Neurontin) 100 mg BID@0900,1600 PO Last administered on 02/19/19at 09:26; Start 02/12/19 at 16:00; Stop 02/19/19 at 15:15; Status DC Gabapentin (Neurontin) 300 mg BID@0900,1600 PO Last administered on 02/12/19at 08:22; Start 02/09/19 at 16:00; Stop 02/12/19 at 10:11; Status DC Gabapentin (Neurontin) 300 mg QHS PO Last administered on 02/14/19at 22:01; Start 02/12/19 at 21:00; Stop 02/15/19 at 09:31; Status DC Gabapentin (Neurontin) 300 mg QHS@2000 PO Last administered on 02/22/19 21:25; Start 02/15/19 at 20:00 Gabapentin (Neurontin) 600 mg QHS PO Last administered on 02/11/19at 21:10; Start 02/09/19 at 21:00; Stop 02/12/19 at 10:11; Status DC Glucagon (Glucagon) 1 mg ASDIRECTED PRN SC SEE LABEL COMMENTS; Start 02/09/19 at 15:15 Glucose (Glucose) 16 GM ASDIRECTED PRN PO SEE LABEL COMMENTS; Start 02/09/19 at 15:15 Glyburide (Diabeta, Micronase) 5 mg BID@0730,1730 PO Last administered on 02/19/19at 09:26; Start 02/11/19 at 17:30; Stop 02/19/19 at 10:43; Status DC Glyburide (Diabeta, Micronase) 10 mg BID@0730,1730 PO Last administered on 02/23/19at 08:31; Start 02/19/19 at 17:30 Glyburide (Diabeta, Micronase) 10 mg BID@0730,1730 PO Last administered on 02/11/19at 07:50; Start 02/09/19 at 17:30; Stop 02/11/19 at 12:05; Status DC Insulin Detemir (Levemir Insulin) 5 units QHS SC Last administered on 02/19/19at 20:24; Start 02/19/19 at 21:00; Stop 02/20/19 at 11:56; Status DC Insulin Detemir (Levemir Insulin) 10 units QHS SC Last administered on 02/15/19at 21:55; Start 02/09/19 at 21:00; Stop 02/16/19 at 07:58; Status DC Insulin Detemir (Levemir Insulin) 12 units QHS SC Last administered on 02/18/19 20:21; Start 02/16/19 at 21:00; Stop 02/19/19 at 10:43; Status DC Insulin Human Lispro (HumaLOG INSULIN) SEE PROTOCOL TABLE AC SC Last administered on 02/23/19at 08:32; Start 02/09/19 at 17:30 Insulin Human Lispro (HumaLOG INSULIN) SEE PROTOCOL TABLE QHS SC Last administered on 02/22/19at 21:33; Start 02/09/19 at 21:00 Metoprolol Succinate (TopROL XL) 12.5 mg DAILY PO Last administered on 02/23/19at 08:30; Start 02/21/19 at 11:00 Ondansetron HCl (Zofran) 4 mg Q6HP PRN PO NAUSEA; Start 02/09/19 at 15:15; Stop 02/12/19 at 10:11; Status DC Oxycodone HCl (Roxicodone, Oxyir) 5 mg Q4HP PRN PO PAIN Last administered on 02/10/19at 05:57; Start 02/09/19 at 15:15; Stop 02/12/19 at 10:11; Status DC Oxycodone HCl (Roxicodone, Oxyir) 10 mg Q4HP PRN PO SEVERE PAIN (PS 8-10); Start 02/09/19 at 15:15; Stop 02/09/19 at 16:50; Status DC Pantoprazole Sodium (Protonix) 40 mg DAILY PO Last administered on 02/23/19at 08:31; Start 02/09/19 at 09:00 Rivaroxaban (Xarelto) 10 mg DAILY@1800 PO Last administered on 02/22/19at 17:27; Start 02/09/19 at 18:00; Stop 03/13/19 at 17:59 Senna/Docusate Sodium (Senokot S) 1 tab BID PO Last administered on 02/22/19at 08:26; Start 02/09/19 at 21:00; Stop 02/22/19 at 16:25; Status DC Sitagliptin Phosphate (Januvia) 50 mg DAILY@0800 PO Last administered on 02/21/19at 07:48; Start 02/20/19 at 08:00; Stop 02/21/19 at 09:44; Status DC Sitagliptin Phosphate (Januvia) 100 mg DAILY PO ; Start 02/20/19 at 09:00; Stop 02/20/19 at 12:01; Status DC Sitagliptin Phosphate (Januvia) 100 mg DAILY@0800 PO Last administered on at 08:31; Start 02/22/19 at 08:00 Tamsulosin HCl (Flomax) 0.4 mg BID PO Last administered on 02/23/19at 08:31; Start 02/21/19 at 21:00 Tamsulosin HCl (Flomax) 0.4 mg BID PO Last administered on 02/18/19 20:22; Start 02/12/19 at 21:00; Stop 02/19/19 at 11:54; Status DC Tamsulosin HCl (Flomax) 0.4 mg DAILY PO Last administered on 02/12/19at 08:23; Start 02/10/19 at 10:15; Stop 02/12/19 at 11:48; Status DC Tamsulosin HCl (Flomax) 0.4 mg QHS PO Last administered on 02/20/19 20:16; Start 02/19/19 at 21:00; Stop 02/21/19 at 17:07; Status DC Tramadol HCl (Ultram) 25 mg Q6HP PRN PO MODERATE PAIN (PS 5-7) Last administered on 02/20/19 09:18; Start 02/19/19 at 10:30; Stop 02/20/19 at 11:57; Status DC Tramadol HCl (Ultram) 50 mg Q6HP PRN PO MODERATE PAIN (PS 5-7) Last administered on 02/19/19 06:07; Start 02/13/19 at 11:30; Stop 02/19/19 at 10:16; Status DC A-FIB/CHADSVASC A-FIB History Current/History of A-Fib/PAF?: No GALILEO DUFF MD February 23, 2019 10:43
[2019-02-23 14:00] VITALS: BP 139/67
[2019-02-23] MEDS: RIVAROXABAN 10 MG TAB (XARELTO) PO SCH (17:36)
[2019-02-23 20:00] VITALS: BP 145/71
[2019-02-23] MEDS: GABAPENTIN 300 MG CAP PO SCH (20:30)
[2019-02-24 06:00] VITALS: BP 147/67
[2019-02-24] MEDS: glyBURIDE 2.5 MG TAB PO SCH ×2 (07:53→17:31)
[2019-02-24] MEDS: SITagliptin 50 MG TAB (JANUVIA) PO SCH (07:53)
[2019-02-24] MEDS: HumaLOG INSULIN (NovoLOG) PER UNIT SC SCH ×4 (07:54→21:14)
[2019-02-24] MEDS: ATORVASTATIN 20 MG TAB PO SCH (08:27)
[2019-02-24] MEDS: FERROUS GLUCONATE 324 MG TAB PO SCH ×2 (08:27→21:12)
[2019-02-24] MEDS: TAMSULOSIN 0.4 MG CAP PO SCH ×2 (08:27→21:12)
[2019-02-24] MEDS: ACETAMINOPHEN 500 MG TAB PO SCH ×3 (08:28→21:12)
[2019-02-24] MEDS: METOPROLOL SUCC *XL* 12.5MG PER 1/2 TAB (TopROL *XL*) PO SCH (08:28)
[2019-02-24] MEDS: PANTOPRAZOLE 40MG TAB (PROTONIX) PO SCH (08:28)
[2019-02-24 14:00] VITALS: BP 133/83
[2019-02-24] MEDS: RIVAROXABAN 10 MG TAB (XARELTO) PO SCH (17:32)
[2019-02-24 20:00] VITALS: BP 132/69
[2019-02-24] MEDS: GABAPENTIN 300 MG CAP PO SCH (21:12)
[2019-02-25 06:00] VITALS: BP 131/82
[2019-02-25] MEDS: ATORVASTATIN 20 MG TAB PO SCH (07:35)
[2019-02-25] MEDS: SITagliptin 50 MG TAB (JANUVIA) PO SCH (07:35)
[2019-02-25] MEDS: PANTOPRAZOLE 40MG TAB (PROTONIX) PO SCH (07:35)
[2019-02-25] MEDS: ACETAMINOPHEN 500 MG TAB PO SCH ×3 (07:35→20:04)
[2019-02-25] MEDS: FERROUS GLUCONATE 324 MG TAB PO SCH ×2 (07:35→20:04)
[2019-02-25] MEDS: METOPROLOL SUCC *XL* 12.5MG PER 1/2 TAB (TopROL *XL*) PO SCH (07:35)
[2019-02-25] MEDS: HumaLOG INSULIN (NovoLOG) PER UNIT SC SCH ×4 (07:35→20:01)
[2019-02-25] MEDS: glyBURIDE 2.5 MG TAB PO SCH ×2 (07:36→17:19)
[2019-02-25] MEDS: TAMSULOSIN 0.4 MG CAP PO SCH ×2 (07:36→20:04)
--- NOTE | 2019-02-25 12:58 | IPNPDOC ---
Subjective Date Seen The patient was seen on 02/25/19. Subjective Chief Complaint/HPI Patient is a 73-year-old male, past medical history significant for diabetes mellitus, CLL, HTN, BPH who fell while doing heavy lifting onto his right side and presented to [facility] where imaging showed a right hip fracture. He underwent a total hip replacement without complication Events since last encounter Patient has had persistently elevated fasting blood glucose. Patient and daughter reports is because patient has been snacking a lot the past couple of days. He denies chest pain, denies shortness of breath, has been tolerating physical therapy without issues. Denies chills or fever. Post void residual, still greater than 100 Objective Physical Examination General Exam: Positive: Alert, Cooperative, No Acute Distress Eye Exam: Positive: PERRLA, EOMI ENT Exam: Positive: Atraumatic, Mucous membr. moist/pink Neck Exam: Positive: Supple; Negative: JVD, thyromegaly Chest Exam: Positive: Clear to auscultation, Normal air movement Heart Exam: Positive: Rate Normal, Regular Rhythm, Irregular Rhythm, Normal S1, Normal S2, Other (ectopic beats) Telemetry: Positive: PACs Abdomen Exam: Positive: Normal bowel sounds, Soft Extremity Exam: Positive: Edema Skin Exam: Negative: Breakdown Neuro Exam: Positive: Normal Speech Psych Exam: Positive: Mental status NL, Mood NL, Oriented x 3; Negative: Anxiety A-FIB/CHADSVASC A-FIB History Current/History of A-Fib/PAF?: No Current Oral Anticoagulant The: No Assessment /Plan Problems (1) HTN (hypertension) Status: Chronic Response to Treatment: Stable Problem Text: Blood pressure is currently controlled on current regimen (2) Hip fracture, right Status: Acute Problem Text: -S/P ORIF right hip -rehab management by primary team (3) DM (diabetes mellitus) Status: Chronic Problem Text: -Fasting blood glucose less than 200 -Continued on glyburide and bolus therapy with meals (4) CLL (chronic lymphocytic leukemia) Status: Chronic Problem Text: -no sign of remission -O/P follow up with oncology (5) HLD (hyperlipidemia) Status: Chronic Response to Treatment: Stable Problem Text: -Continue Lipitor (6) BPH (benign prostatic hyperplasia) Status: Chronic Problem Text: -patient still has significant post void residual >100ml -S/P branch placement and removal for retention -discussed with Urology who would like to see him as outpatient after discharge -he will follow up with urology(Dr Flores) Plan/VTE VTE Prophylaxis Ordered?: Yes VS, I&O, 24H, Fishbone Vital Signs/I&O Vital Signs Date Time Temp Pulse Resp B/P (MAP) Pulse Ox O2 Delivery O2 Flow Rate FiO2 02/25/19 07:35 83 131/82 02/25/19 06:00 97.7 18 98 I&O- Last 24 Hours up to 6 AM 02/25/19 06:00 Intake Total 1500 ml Balance 1500 ml Laboratory Data 24H LABS Laboratory Tests 2 02/24/19 16:47: Bedside Glucose (Misc Panel) 244H 02/24/19 20:35: Bedside Glucose (Misc Panel) 259H 02/25/19 06:07: Bedside Glucose (Misc Panel) 228H 02/25/19 12:08: Bedside Glucose (Misc Panel) 203H SIL MIMS ST[employer] ADMINISTRATIVE ASSISTANT February 25, 2019 12:58
[2019-02-25 14:00] VITALS: BP 140/72
[2019-02-25] MEDS: RIVAROXABAN 10 MG TAB (XARELTO) PO SCH (17:19)
[2019-02-25 20:00] VITALS: BP 127/64
[2019-02-25] MEDS: GABAPENTIN 300 MG CAP PO SCH (20:04)
[2019-02-26] MEDS ORDERED: XARE10TA PO (05:52)
[2019-02-26 06:00] VITALS: BP 164/44
[2019-02-26 06:32] LABS: HEMATOCRIT 32.5 % (42.0-52.0); HEMOGLOBIN 10.6 g/dl (13.5-17.5); MEAN CORPUSCULAR HEMOGLOBIN 32.7 pg (27.0-33.0); MEAN CORPUSCULAR HGB CONC 32.6 g/dl (32.0-36.5); MEAN CORPUSCULAR VOLUME 100.3 fl (80.0-96.0); PLATELET COUNT, AUTOMATED 728 10^3/uL (150-450); RED BLOOD COUNT 3.24 10^6/uL (4.30-6.10); WHITE BLOOD COUNT 13.3 10^3/uL (4.0-10.0)
[2019-02-26 06:49] LABS: ALT/SGPT 25 U/L (12-78); BILIRUBIN,TOTAL 0.3 MG/DL (0.2-1.0); BLOOD UREA NITROGEN 11 MG/DL (7-18); CALCIUM LEVEL 8.4 MG/DL (8.8-10.2); CARBON DIOXIDE LEVEL 26 MEQ/L (21-32); CHLORIDE LEVEL 105 MEQ/L (98-107); CREATININE FOR GFR 0.74 MG/DL (0.70-1.30); GLOMERULAR FILTRATION RATE > 60.0 (>42); GLUCOSE, FASTING 222 MG/DL (70-100); MAGNESIUM LEVEL 1.5 MG/DL (1.8-2.4); POTASSIUM SERUM 3.6 MEQ/L (3.5-5.1); SODIUM LEVEL 139 MEQ/L (136-145); TOTAL PROTEIN 6.6 GM/DL (6.4-8.2)
[2019-02-26] MEDS: PANTOPRAZOLE 40MG TAB (PROTONIX) PO SCH (09:24)
[2019-02-26] MEDS: FERROUS GLUCONATE 324 MG TAB PO SCH ×2 (09:24→20:03)
[2019-02-26] MEDS: TAMSULOSIN 0.4 MG CAP PO SCH ×2 (09:24→20:03)
[2019-02-26] MEDS: ATORVASTATIN 20 MG TAB PO SCH (09:24)
[2019-02-26] MEDS: SITagliptin 50 MG TAB (JANUVIA) PO SCH (09:24)
[2019-02-26] MEDS: glyBURIDE 2.5 MG TAB PO SCH ×2 (09:24→17:31)
[2019-02-26] MEDS: METOPROLOL SUCC *XL* 12.5MG PER 1/2 TAB (TopROL *XL*) PO SCH (09:25)
[2019-02-26] MEDS: ACETAMINOPHEN 500 MG TAB PO SCH ×3 (09:25→20:03)
[2019-02-26] MEDS: HumaLOG INSULIN (NovoLOG) PER UNIT SC SCH ×4 (09:26→19:59)
[2019-02-26 14:00] VITALS: BP 145/69
[2019-02-26] MEDS: RIVAROXABAN 10 MG TAB (XARELTO) PO SCH (17:31)
[2019-02-26 20:00] VITALS: BP 136/74
[2019-02-26] MEDS: GABAPENTIN 300 MG CAP PO SCH (20:02)
[2019-02-27 06:00] VITALS: BP 137/74
[2019-02-27] MEDS ORDERED: ACET-683 PO (08:13)
[2019-02-27] MEDS ORDERED: METO1TAB32 PO (08:13)
[2019-02-27] MEDS ORDERED: FLOM0.4C39 PO (08:13)
[2019-02-27] MEDS ORDERED: PANT40TA3 PO ×2 (08:13→11:15)
[2019-02-27] MEDS ORDERED: GLYB25TA PO (08:13)
[2019-02-27] MEDS ORDERED: GABA-843 PO (08:13)
[2019-02-27] MEDS ORDERED: FERR32TA PO (08:13)
[2019-02-27] MEDS ORDERED: SITA50TAB PO (08:13)
[2019-02-27] MEDS ORDERED: ATOR1TAB21 PO (08:13)
[2019-02-27] MEDS: PANTOPRAZOLE 40MG TAB (PROTONIX) PO SCH (08:56)
[2019-02-27] MEDS: FERROUS GLUCONATE 324 MG TAB PO SCH (08:56)
[2019-02-27] MEDS: ATORVASTATIN 20 MG TAB PO SCH (08:56)
[2019-02-27] MEDS: ACETAMINOPHEN 500 MG TAB PO SCH (08:56)
[2019-02-27] MEDS: SITagliptin 50 MG TAB (JANUVIA) PO SCH (08:56)
[2019-02-27] MEDS: TAMSULOSIN 0.4 MG CAP PO SCH (08:56)
[2019-02-27] MEDS: glyBURIDE 2.5 MG TAB PO SCH (08:57)
[2019-02-27 08:58] VITALS: BP 137/74
[2019-02-27] MEDS: HumaLOG INSULIN (NovoLOG) PER UNIT SC SCH (08:58)
[2019-02-27] MEDS: METOPROLOL SUCC *XL* 12.5MG PER 1/2 TAB (TopROL *XL*) PO SCH (08:58)
--- NOTE | 2019-02-27 11:16 | IPNPDOC ---
PM&R Progress Note DATE OF SERVICE: February 26, 2019 [facility] Progress Note Subjective: Patient asking about logging his finger sticks in preparation for his next visit with Dr. Hernandez. REVIEW OF SYSTEMS: The following is a completed review of systems and has been reviewed. Review of systems otherwise unremarkable. PAIN: Patient self reports no right hip pain EYES: Negative for recent vision changes EARS, NOSE, & THROAT: denies throat pain, does endorse hx of pain with swallowing due to GERD CARDIOVASCULAR: denies chest pain or palpitations PULMONARY: Negative. Denies shortness of breath GASTROINTESTINAL: Negative for diarrhea or constipation GENITOURINARY: +burning with urination (improved) MUSCULOSKELETAL: bilateral LE weakness NEUROLOGICAL: +peripheral neuropathy HEMATOLOGICAL:+ CLL SKIN: right hip incision PSYCHIATRIC: Unremarkable All other review of systems found to be negative. PHYSICAL EXAMINATION: VITAL SIGNS: Please see below. GENERAL: Pleasant and cooperative. No acute distress. HEENT: PERRL. Extraocular movements intact. Clear conjunctiva CARDIOVASCULAR: Regular rate and rhythm. No murmurs, rubs, or gallops LUNGS: Clear to auscultation bilaterally. No wheezes. No rhonchi ABDOMEN: Soft, nontender, nondistended. Positive bowel sounds. Normal active bowel sounds NEUROLOGICAL: Alert and oriented times three. Cranial nerves II through XII grossly intact. Sensation diminished to light touch in LE in stocking pattern, proprioception intact EXTREMITIES:5\5 strength bilateral upper extremities. 5\5 strength right ankle DF and EHL (exam limited due to recent surgery).5/5 strength in left lower extremity. SKIN: right hip incision without induration c/d/i, right upper eyelid with mild swelling and erythema ASSESSMENT:73-year-old M with past medical history of CLL who presents status post fall with hip fracture s/p THR PLAN: 1. rehab: PT/OT, assess for DME needs, able to ambulate further with RW and negotiate stairs,did well with room privileges over the weekend 2. ortho s/p fall with right femur fracture, per ost-op radiology records s/p total hip arthroplasty- hip precautions- ortho consulted 3. Neuro: +diabetic neuropathy c/u gabapentin 4. Cardiac: pmh HTN c/u home meds- medicine consulted - EKG shows premature ventricular complexes, elevated BPs on rehab, c/u low dose beta-ewa and monitor 5. Endo: poorly controlled DM, c/u ISS, glyburide 10mg BID and added back home Januvia, levemir on hold, consistent carb diet-medicine recs appreciated 6. GI: pmh GERD, c/u protonix 7. DVT ppx: reinarelpaddy lans 8. : pmh BPH with retention, c/u lower gabapentin dosing, f d/c'ed c/u Flomax BID for outlet obstruction, no daytime dizziness reported-will refer to outpatient urology 9, Heme: pmh CLL with chronic leukocytosis- monitor -post-op anemia, FOBT negative 10. Pain: d/c'ed tramadol and monitor- c/u standing Tylenol 11. Skin: right eye stye- apply warm moist compresses-improving 10. Dispo: 02/27/19 to his daughter's house in [facility] or back to his own home Allergies Coded Allergies: No Known Allergies (Unverified , 02/07/19) Vital Signs Vital Signs Date Time Temp Pulse Resp B/P (MAP) Pulse Ox O2 Delivery O2 Flow Rate FiO2 02/27/19 08:58 90 137/74 02/27/19 06:00 97.6 18 97 Laboratory Data Labs 24H Laboratory Tests 2 02/26/19 11:28: Bedside Glucose (Misc Panel) 211H 02/26/19 17:00: Bedside Glucose (Misc Panel) 128H 02/26/19 19:47: Bedside Glucose (Misc Panel) 210H 02/27/19 06:03: Bedside Glucose (Misc Panel) 183H Current Medications Current Medications Current Medications Acetaminophen (Tylenol Tab) 650 mg DAILY PRN PO fever/pain; Start 02/09/19 at 15:15; Stop 02/27/19 at 11:12; Status DC Acetaminophen (Tylenol Tab) 1,000 mg TID PO Last administered on 02/27/19at 08:56; Start 02/09/19 at 16:00; Stop 02/27/19 at 11:12; Status DC Atorvastatin Calcium (Lipitor) 40 mg DAILY PO Last administered on 02/27/19at 08:56; Start 02/10/19 at 09:00; Stop 02/27/19 at 11:12; Status DC Baclofen (Lioresal) 5 mg TID PRN PO SPASMS; Start 02/22/19 at 16:30; Stop 02/27/19 at 11:12; Status DC Bisacodyl (Dulcolax Suppository) 10 mg DAILYPRN PRN [place] CONSTIPATION; Start 02/09/19 at 15:15; Stop 02/27/19 at 11:12; Status DC Dextrose (Dextrose 50%) 25 ml ASDIRECTED PRN IV SEE LABEL COMMENTS; Start 02/09/19 at 15:15; Stop 02/27/19 at 11:12; Status DC Ferrous Gluconate (Fergon) 324 mg BID PO Last administered on 02/27/19at 08:56; Start 02/12/19 at 09:00; Stop 02/27/19 at 11:12; Status DC Gabapentin (Neurontin) 100 mg BID@0900,1600 PO Last administered on 02/19/19at 09:26; Start 02/12/19 at 16:00; Stop 02/19/19 at 15:15; Status DC Gabapentin (Neurontin) 300 mg BID@0900,1600 PO Last administered on 02/12/19at 08:22; Start 02/09/19 at 16:00; Stop 02/12/19 at 10:11; Status DC Gabapentin (Neurontin) 300 mg QHS PO Last administered on 02/14/19at 22:01; Start 02/12/19 at 21:00; Stop 02/15/19 at 09:31; Status DC Gabapentin (Neurontin) 300 mg QHS@2000 PO Last administered on 02/26/19at 20:02; Start 02/15/19 at 20:00; Stop 02/27/19 at 11:12; Status DC Gabapentin (Neurontin) 600 mg QHS PO Last administered on 02/11/19at 21:10; Start 02/09/19 at 21:00; Stop 02/12/19 at 10:11; Status DC Glucagon (Glucagon) 1 mg ASDIRECTED PRN SC SEE LABEL COMMENTS; Start 02/09/19 at 15:15; Stop 02/27/19 at 11:12; Status DC Glucose (Glucose) 16 GM ASDIRECTED PRN PO SEE LABEL COMMENTS; Start 02/09/19 at 15:15; Stop 02/27/19 at 11:12; Status DC Glyburide (Diabeta, Micronase) 5 mg BID@0730,1730 PO Last administered on 02/19/19 09:26; Start 02/11/19 at 17:30; Stop 02/19/19 at 10:43; Status DC Glyburide (Diabeta, Micronase) 10 mg BID@0730,1730 PO Last administered on 02/27/19at 08:57; Start 02/19/19 at 17:30; Stop 02/27/19 at 11:12; Status DC Glyburide (Diabeta, Micronase) 10 mg BID@0730,1730 PO Last administered on 02/11/19at 07:50; Start 02/09/19 at 17:30; Stop 02/11/19 at 12:05; Status DC Insulin Detemir (Levemir Insulin) 5 units QHS SC Last administered on 02/19/19at 20:24; Start 02/19/19 at 21:00; Stop 02/20/19 at 11:56; Status DC Insulin Detemir (Levemir Insulin) 10 units QHS SC Last administered on 02/15/19at 21:55; Start 02/09/19 at 21:00; Stop 02/16/19 at 07:58; Status DC Insulin Detemir (Levemir Insulin) 12 units QHS SC Last administered on 02/18/19at 20:21; Start 02/16/19 at 21:00; Stop 02/19/19 at 10:43; Status DC Insulin Human Lispro (HumaLOG INSULIN) SEE PROTOCOL TABLE AC SC Last administered on 02/27/19at 08:58; Start 02/09/19 at 17:30; Stop 02/27/19 at 11:12; Status DC Insulin Human Lispro (HumaLOG INSULIN) SEE PROTOCOL TABLE QHS SC Last administered on 02/24/19at 21:14; Start 02/09/19 at 21:00; Stop 02/27/19 at 11:12; Status DC Metoprolol Succinate (TopROL XL) 12.5 mg DAILY PO Last administered on 02/27/19at 08:58; Start 02/21/19 at 11:00; Stop 02/27/19 at 11:12; Status DC Miscellaneous (Unresolved Clarification Entry) SEE LABEL COMMENTS DAILY XX ; Start 02/26/19 at 09:00; Status Cancel Ondansetron HCl (Zofran) 4 mg Q6HP PRN PO NAUSEA; Start 02/09/19 at 15:15; Stop 02/12/19 at 10:11; Status DC Oxycodone HCl (Roxicodone, Oxyir) 5 mg Q4HP PRN PO PAIN Last administered on 02/10/19at 05:57; Start 02/09/19 at 15:15; Stop 02/12/19 at 10:11; Status DC Oxycodone HCl (Roxicodone, Oxyir) 10 mg Q4HP PRN PO SEVERE PAIN (PS 8-10); Start 02/09/19 at 15:15; Stop 02/09/19 at 16:50; Status DC Pantoprazole Sodium (Protonix) 40 mg DAILY PO Last administered on 02/27/19at 08:56; Start 02/09/19 at 09:00; Stop 02/27/19 at 11:12; Status DC Rivaroxaban (Xarelto) 10 mg DAILY@1800 PO Last administered on 02/26/19at 17:31; Start 02/09/19 at 18:00; Stop 02/27/19 at 11:12; Status DC Senna/Docusate Sodium (Senokot S) 1 tab BID PO Last administered on 02/22/19at 08:26; Start 02/09/19 at 21:00; Stop 02/22/19 at 16:25; Status DC Sitagliptin Phosphate (Januvia) 50 mg DAILY@0800 PO Last administered on 02/21/19at 07:48; Start 02/20/19 at 08:00; Stop 02/21/19 at 09:44; Status DC Sitagliptin Phosphate (Januvia) 100 mg DAILY PO ; Start 02/20/19 at 09:00; Stop 02/20/19 at 12:01; Status DC Sitagliptin Phosphate (Januvia) 100 mg DAILY@0800 PO Last administered on 02/27/19at 08:56; Start 02/22/19 at 08:00; Stop 02/27/19 at 11:12; Status DC Tamsulosin HCl (Flomax) 0.4 mg BID PO Last administered on 02/27/19at 08:56; Start 02/21/19 at 21:00; Stop 02/27/19 at 11:12; Status DC Tamsulosin HCl (Flomax) 0.4 mg BID PO Last administered on 02/18/19 20:22; Start 02/12/19 at 21:00; Stop 02/19/19 at 11:54; Status DC Tamsulosin HCl (Flomax) 0.4 mg DAILY PO Last administered on 02/12/19 08:23; Start 02/10/19 at 10:15; Stop 02/12/19 at 11:48; Status DC Tamsulosin HCl (Flomax) 0.4 mg QHS PO Last administered on 02/20/19at 20:16; Start 02/19/19 at 21:00; Stop 02/21/19 at 17:07; Status DC Tramadol HCl (Ultram) 25 mg Q6HP PRN PO MODERATE PAIN (PS 5-7) Last administered on 02/20/19at 09:18; Start 02/19/19 at 10:30; Stop 02/20/19 at 11:57; Status DC Tramadol HCl (Ultram) 50 mg Q6HP PRN PO MODERATE PAIN (PS 5-7) Last admi nistered on 02/19/19at 06:07; Start 02/13/19 at 11:30; Stop 02/19/19 at 10:16; Status DC A-FIB/CHADSVASC A-FIB History Current/History of A-Fib/PAF?: No GALILEO DUFF MD February 27, 2019 11:16
--- NOTE | 2019-02-27 18:30 | IPN ---
DATE: 02/27/2019 This is a 73-year-old male with a past medical history for diabetes, chronic lymphocytic leukemia (CLL), hypertension, BPH, who fell. Presented to [facility]. He was subsequently transferred. He had a total hip replacement without complication and then to rehabilitation for rehabilitation. OBJECTIVE: Blood pressure 137/74, pulse 90, respirations 18, temperature 97.6, oxygen saturation 97% on room air. Patient is alert and oriented times three. Pupils equal and reactive to light. Extraocular muscles (EOMs) intact. Corneae and sclerae clear. Conjunctivae were normal. No facial asymmetry. Jugular venous pressure is below clavicle. Chest clear to auscultation without wheezing or retraction. Heart is regular. Abdomen benign. Bowel sounds positive. Genitourinary/rectal not done. Extremities show equal strength, full range of motion. No cyanosis, clubbing, or edema. Peripheral pulses equal and palpable bilaterally. Skin is warm and dry. Cranial nerves II-XII grossly intact. Right eye has a small stye. No drainage. No pain. IMPRESSION AND PLAN: 1. Hypertension, stable. Continue current regimen. 2. Status post open reduction, internal fixation, right hip. Being discharged today. Discharge orders and medications per . 3. Diabetes. Continue on glyburide and will add back Januvia from home medication. 4. Chronic lymphocytic leukemia (CLL). No signs of remission. Continue followup outpatient with oncology. 5. Hypercholesterolemia. Continue Lipitor. 6. BPH. Followup with Dr. Flores as an outpatient for urology. Patient was discharged in stable condition.
--- NOTE | 2019-03-02 00:29 | PMRDS ---
DATE OF ADMISSION: 02/09/2019 DATE OF DISCHARGE: 02/27/2019 CHIEF COMPLAINT/DISCHARGE DIAGNOSIS: Right hip fracture, status post hip hemiarthroplasty. HISTORY OF PRESENT ILLNESS: This is a 73-year-old man with a past medical history of diabetes, CLL, hypertension, BPH who fell while doing heavy lifting onto his right side and presented to [facility] where imaging showed a right hip fracture. He was transferred to [facility] Emergency Department on 02/08/2019 complaining of right leg pain and weakness. Imaging revealed nondisplaced fracture of the right femoral neck. Orthopedics was consulted and determined he was an appropriate candidate for a hip alexander replacement given his young age and high level of physical function prior to the fall. EKG showed "sinus bradycardia with sinus arrhythmia" and he was cleared by medicine for procedure. He underwent a right hip hemiarthroplasty without complication, had persistent leukocytosis due to CLL and elevated glucose levels. He was evaluated by therapy, found to be well below his prior level of function with impairment in gait and activities of daily living (ADLs) and deemed medically appropriate for discharge to acute rehabilitation unit (ARU) on 02/09/2019. Upon arrival, he endorses a few years of unsteadiness on his feet due to his neuropathy but denies any back pain or foot drop. He admits to being nonadherent to a diabetic diet and would like to try adjusting his eating habits while on ARU. PAST MEDICAL HISTORY: As per history of the present illness. HOSPITAL COURSE: The patient was admitted, enrolled in a comprehensive physical therapy (PT)/occupational therapy (OT) program. He received 24-hour nursing supervision and weekly team meetings were held to discuss his progress. The patient was able to maintain his hip precautions and required initially pain medication consisting of tramadol for his right hip pain. However, later was tapered off and just provided with Tylenol and gabapentin with good pain control overall. The patient had urinary retention for which his Flomax was increased to twice a day. His daytime dose of Flomax was held for episodes of dizziness; however, ultimately deemed to be from tramadol use, and he was placed back on Flomax twice a day without any symptoms. The patient was found to be tachycardic. EKG showed premature ventricular complexes for which he was started on a low-dose beta ewa. The patient's blood sugar was well controlled on a consistent carbohydrate diet Initially he required sliding-scale coverage; however, he was able to maintain good glucose control just on glyburide and Januvia. He developed a right eye stye later in his hospital course, which improved with the application of a warm, moist compress. He made significant gains in therapy and was deemed medically and functionally stable to return to home. DISCHARGE MEDICATIONS: - Tylenol 1000 mg three times a day - atorvastatin 40 mg daily - iron 324 mg twice a day - gabapentin 300 mg nightly - glyburide 10 mg by mouth twice a day - metoprolol 12.5 mg daily - Protonix 40 mg daily - Xarelto 10 mg daily - sitagliptin 100 mg daily - tamsulosin 0.4 mg twice a day FUNCTIONAL HISTORY UPON DISCHARGE: The patient was modified independent with all functional transfers. With the use of a rolling walker able to ambulate 300 feet and negotiate stairs. In occupational therapy, he was able to dress, bathe, and toilet at a modified independent (mod i) level and he was discharged home with no services and follow up made for orthopedic surgery, primary care physician and urology.
== END 2019-02-27 10:40 | disposition home or self-care (01) | DRG 560 ==
LOC: M PM&R 14:20
PROVIDERS: ADMIT Physical Medicine & Rehabilitation; ATTEND Physical Medicine & Rehabilitation
DX: S72.044D Nondisplaced fracture of base of neck of right femur, subsequent encounter for closed fracture with routine healing (principal); C91.90 Lymphoid leukemia, unspecified not having achieved remission; E11.42 Type 2 diabetes mellitus with diabetic polyneuropathy; I10 Essential (primary) hypertension; N40.0 Benign prostatic hyperplasia without lower urinary tract symptoms; Z96.641 Presence of right artificial hip joint; X50.0XXD Overexertion from strenuous movement or load, subsequent encounter; Y92.9 Unspecified place or not applicable; R26.81 Unsteadiness on feet; Z91.11 Patient's noncompliance with dietary regimen; K21.9 Gastro-esophageal reflux disease without esophagitis; Z79.899 Other long term (current) drug therapy; I95.1 Orthostatic hypotension; D50.0 Iron deficiency anemia secondary to blood loss (chronic)

== ENCOUNTER 2020-03-31 11:01 | Emergency (ER) | payer MEDICARE, BC ==
[~2020-03-31] VITALS: Ht 172.7 cm; Wt 69.6 kg
[~2020-03-31 11:01] MED LIST changes: +ACET-683 PO; +ATOR1TAB21 PO; +FERR32TA PO; +FLOM0.4C39 PO; +GLYB25TA PO; +METO1TAB32 PO; +PANT40TA3 PO; +SITA50TAB PO
[2020-03-31] MEDS ORDERED: TRUL10IN (11:10)
[2020-03-31] MEDS ORDERED: INVO300T (11:10)
[2020-03-31 12:17] LABS: HEMATOCRIT 43.9 % (42.0-52.0); HEMOGLOBIN 14.8 g/dl (13.5-17.5); MEAN CORPUSCULAR HEMOGLOBIN 33.4 pg (27.0-33.0); MEAN CORPUSCULAR HGB CONC 33.7 g/dl (32.0-36.5); MEAN CORPUSCULAR VOLUME 99.1 fl (80.0-96.0); PLATELET COUNT, AUTOMATED 251 10^3/uL (150-450); RED BLOOD COUNT 4.43 10^6/uL (4.30-6.10)
[2020-03-31 12:19] LABS: WHITE BLOOD COUNT 27.5 10^3/uL (4.0-10.0)
[2020-03-31 12:45] LABS: EOSINOPHILS 2 % (0-3); LYMPHOCYTES 77 % (16-44); MONOCYTES 6 % (0-5); NEUTROPHILS 15 % (28-66)
[2020-03-31 12:46] LABS: ANISOCYTOSIS 1+; PLATELET ESTIMATE NORMAL (NORMAL)
[2020-03-31 12:47] LABS: CK-MB VALUE MASS 7.4 NG/ML (<3.6); CPK CREATINE PHOSPHOKINASE 155 U/L (39-308); MB/CK RELATIVE INDEX 4.77 (< OR =4); TROPONIN I < 0.02 NG/ML (< 0.10)
[2020-03-31 13:32] LABS: APPEARANCE, URINE CLEAR (CLEAR); BACTERIA, URINE AUTO NEGATIVE (NEGATIVE); BILIRUBIN, URINE AUTO NEGATIVE (NEGATIVE); BLOOD, URINE BLOOD NEGATIVE (NEGATIVE); COLOR, URINE STRAW (YELLOW); GLUCOSE, URINE (UA) AUTO 3+ mg/dL (NEGATIVE); KETONE, URINE AUTO NEGATIVE (NEGATIVE); LEUKOCYTE ESTERASE, URINE AUTO NEGATIVE (NEGATIVE); NITRITE, URINE AUTO NEGATIVE (NEGATIVE); PROTEIN, URINE AUTO NEGATIVE (NEGATIVE); RBC, URINE AUTO 1 /HPF (0-3); SPECIFIC GRAVITY URINE AUTO 1.026 (1.002-1.035); SQUAMOUS EPITHELIAL CELL UR AU 0 /HPF (0-6); UROBILINOGEN, URINE AUTO 0.2 mg/dL (0.0-2.0); WBC, URINE AUTO 0 /HPF (0-3)
--- NOTE | 2020-03-31 14:28 | REP ---
LEFT HIP: Two views. HISTORY: Injury in a fall. FINDINGS: AP and frog-leg views of the left hip demonstrate mild to moderate femoral acetabular osteoarthritic spurring. Femoral head is smooth and rounded. Hip joint spaces preserved. No fractures seen. There is vascular calcification. The periarticular soft tissues are otherwise unremarkable. IMPRESSION: No fracture seen. Mild to moderate left hip osteoarthritis. Vascular calcification. Electronically Signed by Mick Agosto MD 03/31/2020 05:07 P
[2020-03-31 15:03] VITALS: BP 146/83
--- NOTE | 2020-03-31 16:38 | ECGEPIP ---
[facility] - ED Test Date: 2020-03-31 Pat Name: MITESH WATTS Department: Room: - Gender: Male Sample Prep Technician: JFCARLOS : 1945 Requested By: DENIA Ignacio PA-C Order Number: [id number] Reading MD: Hang Altamirano Measurements Intervals [place] Rate: 66 P: 33 MT: 154 QRS: -19 QRSD: 100 T: 14 QT: 390 QTc: 411 Interpretive Statements SINUS RHYTHM WITH MARKED SINUS ARRHYTHMIA No ectopy as previous seen in tracing done 02-19-19 Electronically Signed on 03-31-2020 16:37:33 EDT by Hang Altamirano
== END 2020-03-31 15:20 | disposition home or self-care (01) ==
LOC: M ED 11:01
DX: S70.02XA Contusion of left hip, initial encounter (principal); W18.39XA Other fall on same level, initial encounter; Y92.89 Other specified places as the place of occurrence of the external cause; M16.12 Unilateral primary osteoarthritis, left hip; D72.829 Elevated white blood cell count, unspecified; R79.89 Other specified abnormal findings of blood chemistry; C91.10 Chronic lymphocytic leukemia of B-cell type not having achieved remission; E11.40 Type 2 diabetes mellitus with diabetic neuropathy, unspecified; I10 Essential (primary) hypertension; K21.9 Gastro-esophageal reflux disease without esophagitis; N40.0 Benign prostatic hyperplasia without lower urinary tract symptoms; Z79.899 Other long term (current) drug therapy

== ENCOUNTER → 2020-09-29 | Outpatient (REF) | payer MEDICARE, BC ==
[~2020-09-29] MED LIST changes: +INVO300T; +PANT40TA29 PO; -PANT40TA3 PO; +TRUL10IN
[2020-09-29 12:12] LABS: APPEARANCE, URINE CLEAR (CLEAR); BACTERIA, URINE AUTO NEGATIVE (NEGATIVE); BILIRUBIN, URINE AUTO NEGATIVE (NEGATIVE); BLOOD, URINE BLOOD NEGATIVE (NEGATIVE); COLOR, URINE YELLOW (YELLOW); GLUCOSE, URINE (UA) AUTO 3+ mg/dL (NEGATIVE); KETONE, URINE AUTO TRACE mg/dL (NEGATIVE); LEUKOCYTE ESTERASE, URINE AUTO NEGATIVE (NEGATIVE); MUCUS, URINE SMALL (NEGATIVE); NITRITE, URINE AUTO NEGATIVE (NEGATIVE); PROTEIN, URINE AUTO NEGATIVE (NEGATIVE); RBC, URINE AUTO 1 /HPF (0-3); SPECIFIC GRAVITY URINE AUTO 1.029 (1.002-1.035); SQUAMOUS EPITHELIAL CELL UR AU 0 /HPF (0-6); UROBILINOGEN, URINE AUTO 0.2 mg/dL (0.0-2.0); WBC, URINE AUTO 1 /HPF (0-3)
[2020-09-29 12:19] LABS: HEMOGLOBIN 15.7 g/dl (13.5-17.5); MEAN CORPUSCULAR HEMOGLOBIN 34.1 pg (27.0-33.0); MEAN CORPUSCULAR HGB CONC 33.4 g/dl (32.0-36.5); PLATELET COUNT, AUTOMATED 287 10^3/uL (150-450); RED BLOOD COUNT 4.61 10^6/uL (4.30-6.10); WHITE BLOOD COUNT 23.9 10^3/uL (4.0-10.0)
[2020-09-29 12:51] LABS: ALBUMIN 3.7 GM/DL (3.2-5.2); ALT/SGPT 54 U/L (12-78); BILIRUBIN,TOTAL 0.4 MG/DL (0.2-1.0); BLOOD UREA NITROGEN 25 MG/DL (7-18); CALCIUM LEVEL 8.8 MG/DL (8.8-10.2); CARBON DIOXIDE LEVEL 27 MEQ/L (21-32); CHLORIDE LEVEL 106 MEQ/L (98-107); CHOLESTEROL LEVEL 126 MG/DL (<200); CREATININE FOR GFR 0.82 MG/DL (0.70-1.30); FREE T4 1.22 NG/DL (0.76-1.46); GLOMERULAR FILTRATION RATE > 60.0 (>42); GLUCOSE, FASTING 131 MG/DL (70-100); HDL CHOLESTEROL 28 MG/DL (>40); LDL CHOLESTEROL 55 MG/DL (<100); NON-HDL-C 98 MG/DL; POTASSIUM SERUM 4.5 MEQ/L (3.5-5.1); SODIUM LEVEL 139 MEQ/L (136-145); THYROID STIMULATING HORMONE 0.678 uIU/ML (0.358-3.740); TOTAL PROTEIN 6.9 GM/DL (6.4-8.2); TRIGLYCERIDES LEVEL 213 MG/DL (<150)
[2020-09-29 12:55] LABS: CREATININE, URINE 49.7 MG/DL; MALB URINE SIEMENS 12.2 MG/L; MAU/CREAT RATIO 24.5 MCG/MG (0.0-30.0)
[2020-09-29 13:04] LABS: HEMOGLOBIN A1c 8.5 %
== END ==
LOC: M LABDRAWC 11:30
PROVIDERS: ATTEND General Practice
DX: E78.00 Pure hypercholesterolemia, unspecified (principal); E11.9 Type 2 diabetes mellitus without complications; R53.83 Other fatigue; C91.90 Lymphoid leukemia, unspecified not having achieved remission

== ENCOUNTER → 2021-01-22 | Outpatient (REF) | payer MEDICARE, BC, OTHER ==
[~2021-01-22] MED LIST changes: +GABA-282 PO; -GABA-843 PO; +GLYB2.5T7 PO; -GLYB25TA PO; -GLYB5TA PO; +GLYB5TAB6 PO
[2021-01-22 16:09] LABS: BLOOD UREA NITROGEN 27 MG/DL (7-18); CARBON DIOXIDE LEVEL 27 MEQ/L (21-32); CHLORIDE LEVEL 105 MEQ/L (98-107); CHOLESTEROL LEVEL 159 MG/DL (<200); CHOLESTEROL RISK RATIO 4.818 (<5); CREATININE FOR GFR 0.83 MG/DL (0.70-1.30); GLOMERULAR FILTRATION RATE > 60.0 (>42); GLUCOSE, FASTING 182 MG/DL (70-100); HDL CHOLESTEROL 33 MG/DL (>40); LDL CHOLESTEROL 80 MG/DL (<100); NON-HDL-C 126 MG/DL; POTASSIUM SERUM 4.5 MEQ/L (3.5-5.1); SODIUM LEVEL 139 MEQ/L (136-145); TRIGLYCERIDES LEVEL 230 MG/DL (<150)
== END ==
LOC: M LABDRAWC 11:36
PROVIDERS: ATTEND Physician Assistant
DX: E11.65 Type 2 diabetes mellitus with hyperglycemia (principal)

== ENCOUNTER → 2021-06-30 | Outpatient (REF) | payer MEDICARE, BC | LOC: M SFHCCLAY 08:47 | PROVIDERS: ATTEND Nurse Practitioner Women's Health | DX: R97.20 Elevated prostate specific antigen [PSA] (principal) ==

== ENCOUNTER → 2021-08-11 | Outpatient (REF) | payer MEDICARE, BC | LOC: M SFHCCLAY 10:17 | PROVIDERS: ATTEND Nurse Practitioner Women's Health | DX: R97.20 Elevated prostate specific antigen [PSA] (principal) ==

== ENCOUNTER → 2021-12-03 | Outpatient (REF) | payer MEDICARE, BC ==
[2021-12-03 11:37] LABS: APPEARANCE, URINE CLEAR (CLEAR); BACTERIA, URINE AUTO NEGATIVE (NEGATIVE); BILIRUBIN, URINE AUTO NEGATIVE (NEGATIVE); BLOOD, URINE BLOOD NEGATIVE (NEGATIVE); COLOR, URINE YELLOW (YELLOW); GLUCOSE, URINE (UA) AUTO 3+ mg/dL (NEGATIVE); KETONE, URINE AUTO NEGATIVE (NEGATIVE); LEUKOCYTE ESTERASE, URINE AUTO NEGATIVE (NEGATIVE); MUCUS, URINE SMALL (NEGATIVE); NITRITE, URINE AUTO NEGATIVE (NEGATIVE); PROTEIN, URINE AUTO NEGATIVE (NEGATIVE); RBC, URINE AUTO 0 /HPF (0-3); SPECIFIC GRAVITY URINE AUTO 1.023 (1.002-1.035); SQUAMOUS EPITHELIAL CELL UR AU 0 /HPF (0-6); UROBILINOGEN, URINE AUTO 0.2 mg/dL (0.0-2.0); WBC, URINE AUTO 1 /HPF (0-3)
[2021-12-03 11:46] LABS: HEMATOCRIT 44.1 % (42.0-52.0); HEMOGLOBIN 14.9 g/dl (13.5-17.5); MEAN CORPUSCULAR HEMOGLOBIN 33.8 pg (27.0-33.0); MEAN CORPUSCULAR HGB CONC 33.8 g/dl (32.0-36.5); PLATELET COUNT, AUTOMATED 302 10^3/uL (150-450); RED BLOOD COUNT 4.41 10^6/uL (4.30-6.10); WHITE BLOOD COUNT 24.7 10^3/uL (4.0-10.0)
[2021-12-03 12:24] LABS: ALBUMIN 3.6 GM/DL (3.2-5.2); ALT/SGPT 48 U/L (12-78); BILIRUBIN,TOTAL 0.4 MG/DL (0.2-1.0); BLOOD UREA NITROGEN 19 MG/DL (7-18); CALCIUM LEVEL 8.8 MG/DL (8.8-10.2); CARBON DIOXIDE LEVEL 28 MEQ/L (21-32); CHLORIDE LEVEL 107 MEQ/L (98-107); CHOLESTEROL LEVEL 150 MG/DL (<200); CHOLESTEROL RISK RATIO 3.947 (<5); FREE T4 1.25 NG/DL (0.76-1.46); GLOMERULAR FILTRATION RATE > 60.0 (>42); GLUCOSE, FASTING 195 MG/DL (70-100); HDL CHOLESTEROL 38 MG/DL (>40); LDL CHOLESTEROL 89 MG/DL (<100); NON-HDL-C 112 MG/DL; POTASSIUM SERUM 4.8 MEQ/L (3.5-5.1); SODIUM LEVEL 140 MEQ/L (136-145); TOTAL PROTEIN 6.7 GM/DL (6.4-8.2); TRIGLYCERIDES LEVEL 115 MG/DL (<150)
[2021-12-03 12:35] LABS: CREATININE, URINE 33.2 MG/DL; MAU/CREAT RATIO 51.2 MCG/MG (0.0-30.0)
[2021-12-03 12:58] LABS: HEMOGLOBIN A1c 10.3 %
== END ==
LOC: M LABDRAWC 11:13
PROVIDERS: ATTEND General Practice
DX: R53.83 Other fatigue (principal); E78.00 Pure hypercholesterolemia, unspecified; E11.21 Type 2 diabetes mellitus with diabetic nephropathy; C91.90 Lymphoid leukemia, unspecified not having achieved remission; N40.1 Benign prostatic hyperplasia with lower urinary tract symptoms; R97.20 Elevated prostate specific antigen [PSA]
CPT/HCPCS: 36415; 80053; 80061; 81001; 82043; 83036; 84439; 84443; 85027; G0103

== ENCOUNTER → 2022-06-21 | Outpatient (REF) | payer MEDICARE, BC | LOC: M SFHCCLAY 07:40 | PROVIDERS: ATTEND Nurse Practitioner Women's Health | DX: R97.20 Elevated prostate specific antigen [PSA] (principal) ==

== ENCOUNTER → 2022-06-21 | Outpatient (REF) | payer MEDICARE, BC ==
[2022-06-21 12:12] LABS: APPEARANCE, URINE MANUAL CLEAR (CLEAR)
[2022-06-21 12:13] LABS: COLOR, URINE MANUAL LT YELLOW (YELLOW)
[2022-06-21 12:15] LABS: BILIRUBIN, URINE MANUAL NEGATIVE (NEGATIVE); BLOOD URINE MANUAL NEGATIVE (NEGATIVE); GLUCOSE, URINE (UA) MANUAL 4+(1000 MG/DL) mg/dL (NEGATIVE); KETONE, URINE MANUAL NEGATIVE (NEGATIVE); LEUKOCYTE ESTERASE, URINE MAN NEGATIVE (NEGATIVE); NITRITE, URINE MANUAL NEGATIVE (NEGATIVE); PROTEIN, URINE MANUAL NEGATIVE (NEGATIVE); SPECIFIC GRAVITY,URINE MANUAL 1.015 (1.002-1.035); UROBILINOGEN, URINE MANUAL NORMAL (NORMAL)
[2022-06-21 12:16] LABS: HEMOGLOBIN 14.2 g/dl (13.5-17.5); MEAN CORPUSCULAR HEMOGLOBIN 34.6 pg (27.0-33.0); MEAN CORPUSCULAR HGB CONC 33.8 g/dl (32.0-36.5); MEAN CORPUSCULAR VOLUME 102.4 fl (80.0-96.0); PLATELET COUNT, AUTOMATED 314 10^3/uL (150-450)
[2022-06-21 13:01] LABS: CREATININE, URINE 25.6 MG/DL; MALB URINE SIEMENS 16.7 MG/L; MAU/CREAT RATIO 65.2 MCG/MG (0.0-30.0)
[2022-06-21 13:20] LABS: ALBUMIN 3.6 GM/DL (3.2-5.2); ALT/SGPT 42 U/L (12-78); BILIRUBIN,TOTAL 0.3 MG/DL (0.2-1.0); BLOOD UREA NITROGEN 32 MG/DL (7-18); CALCIUM LEVEL 9.3 MG/DL (8.8-10.2); CARBON DIOXIDE LEVEL 27 MEQ/L (21-32); CHLORIDE LEVEL 105 MEQ/L (98-107); CHOLESTEROL LEVEL 147 MG/DL (<200); CHOLESTEROL RISK RATIO 4.323 (<5); CREATININE FOR GFR 0.74 MG/DL (0.70-1.30); FREE T4 1.15 NG/DL (0.76-1.46); GLOMERULAR FILTRATION RATE > 60.0 (>42); GLUCOSE, FASTING 226 MG/DL (70-100); HDL CHOLESTEROL 34 MG/DL (>40); LDL CHOLESTEROL 81 MG/DL (<100); NON-HDL-C 113 MG/DL; POTASSIUM SERUM 5.1 MEQ/L (3.5-5.1); SODIUM LEVEL 136 MEQ/L (136-145); THYROID STIMULATING HORMONE 0.857 uIU/ML (0.358-3.740); TOTAL PROTEIN 6.4 GM/DL (6.4-8.2); TRIGLYCERIDES LEVEL 159 MG/DL (<150)
[2022-06-21 15:33] LABS: HEMOGLOBIN A1c 9.6 %
== END ==
LOC: M LABDRAWC 11:25
PROVIDERS: ATTEND General Practice
DX: E11.21 Type 2 diabetes mellitus with diabetic nephropathy (principal); C91.90 Lymphoid leukemia, unspecified not having achieved remission; N40.1 Benign prostatic hyperplasia with lower urinary tract symptoms; R53.83 Other fatigue; E78.00 Pure hypercholesterolemia, unspecified; R97.20 Elevated prostate specific antigen [PSA]

== ENCOUNTER → 2022-11-11 | Outpatient (CLI) | payer MEDICARE, BC ==
[~2022-11-11] MED LIST changes: +PROHANCE 279.3MG/ML 15ML VIAL As Ordered ONE
== END ==
LOC: M RAD 09:13
PROVIDERS: ATTEND Nurse Practitioner Women's Health
DX: N40.0 Benign prostatic hyperplasia without lower urinary tract symptoms (principal); R97.20 Elevated prostate specific antigen [PSA]; R93.5 Abnormal findings on diagnostic imaging of other abdominal regions, including retroperitoneum
CPT/HCPCS: 72197; A9576

== ENCOUNTER → 2022-11-30 | Outpatient (REF) | payer MEDICARE, BC ==
[~2022-11-30] MED LIST changes: -PROHANCE 279.3MG/ML 15ML VIAL As Ordered ONE
== END ==
LOC: M SMT 12:43
PROVIDERS: ATTEND Urology
DX: C61 Malignant neoplasm of prostate (principal)